=== PATIENT | male | born 1935 | race Caucasian/White ===

== ENCOUNTER 2018-06-17 15:49 | Inpatient (IN) | payer MEDICARE, OTHER ==
--- OUTSIDE RECORDS SUMMARY | 2018-06-17 16:48 | XMS REPORT | Continuity of Care Document ---
:1935 External Reference #:[id number] Author Name MilagromartFlores Care Team Providers Name Role Phone Valentina Pritchard MD Primary Care Physician Unavailable Payers Type Date Identification Numbers Payment Provider Subscriber Policy Number: [id number] Medicare Karl Portillo PayID: [id number] [address] [place] [address] Expires: 2018 Policy Number: [id number] Medicare Karl Portillo PayID: [id number] [address] [place] [address] Policy Number: [id number] [employer] Karl Portillo Group Number: [id number] [address] PayID: [id number] [place] [address] Advance Directives Description No Information Available Problems Date Description Provider Status Onset: 10/23/2016 Obstructive sleep apnea syndrome Emiliana Pollard MD Active Family History Date Family Member(s) Problem(s) Comments General PGM and PGGM Macular Degeneration Father due to Melanoma () Onset: (age 90 Father [place] Years) Father Periodic intestinal blockages, intestinal polyps; Parkinson's Mother Anxiety, headaches, Dementia at age intestinal polyps, macular 89 from heart failure degeneration Mother due to [place] () : (age 97 Mother due to CHF Years) Social History Type Date Description Comments Sex Unknown Marital Status Lives With 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 ETOH Use Consumes 1 glass of wine per day Tobacco Use Start: 07/09/57 Patient is a former End: 07/09/63 smoker Recreational Drug Use Denies Drug Use Tobacco Use Start: Unknown Heavy tobacco smoker 1PPD (more than 10 cigarettes/day) Smoking Status Reviewed: 06/14/18 Heavy tobacco smoker 1PPD (more than 10 cigarettes/day) Exercise Type/Frequency Exercises regularly walks briskly everyday Allergies, Adverse Reactions, Alerts Description No Known Drug Allergies Medications Medication Date Status Form Strength Qnty SIG Indications Ordering Provider Metoprolol 06/10/ Active Tablets 25mg 60tab 1/2 by mouth I48.4 Thony Tartrate 2018 s each am Marisabel Vidales M.D. Eliquis 10/22/ Active Tablets 5mg 1 by mouth Unknown 2016 twice a day Latanoprost / Active Solution 0.005% 1 gtt both Unknown 0000 eyes qd Ciclopirox / Active Solution 8% apply to Unknown 0000 affected toenails and surrounding skin at bedtime Vitamin B-12 / Active Tablets 1000mcg 1 by mouth Unknown 0000 every day Caltrate With / Active Tablets 600mg 1 by mouth Unknown Vitamin D3 0000 every day Centrum Silver / Active Tablets 1 by mouth Unknown 0000 every day Preservision / Active Capsules Areds 2 1 po bid Unknown Areds 2 0000 Cialis / Active Tablets 20mg one tab 30 Unknown 0000 minutes prior to intercourse Pepcid / Active Tablets 20mg take 1 Unknown 0000 tablet by mouth nightly Tylenol Extra / Active Tablets 500mg 2 by mouth Unknown Strength 0000 as needed Esbriet / Active Tablets 801mg 1 po tid, Unknown 0000 with meals Aspir-81 06/12/ Hx Tablets DR 81mg 30tab 1 by mouth Thony 2015 - every day FBeulah 11/28/ Quentin Vidales M.D. Timolol / Hx Solution 0.5% 1 gtt both Unknown Maleate 0000 - eyes bid 2015 Ranitidine HCL / Hx Tablets 150mg take one Unknown 0000 - tablet by 03/19/ mouth twice 2016 a day Vitamin /00/ Hx Tablets 800Units 1 tablet po Unknown D3/Calcium 0000 - every day 2017 Occuvite /00/ Hx use twice Unknown 0000 - daily as 2015 Vitamin A 00/ Hx Capsules 28,640Unit daily Unknown 0000 - 2017 Vitamin C 00/00/ Hx Tablets 452mg 1 by mouth Unknown 0000 - every day 2017 Vitamin E / Hx Capsules 400Unit 1 capsule po Unknown 0000 - daily 2017 Zinc / Hx Tablets 69.6mg 1 tablet by Unknown 0000 - mouth daily 2017 Copper 00/ Hx Tablets 1.6mg 1 tablet my Unknown 0000 - mouth daily 2017 Immunizations Description No Information Available Vital Signs Date Vital Result Comment 06/14/2018 11:14am Height 70 inches 5'10" Weight 180.00 lb Heart Rate 68 /min BP Systolic Sitting 110 mmHg BP Diastolic Sitting 62 mmHg Respiratory Rate 14 /min O2 % BldC Oximetry 97 % BMI (Body Mass Index) 25.8 kg/m2 06/10/2018 10:25am Height 70 inches 5'10" Weight 174.50 lb w/shoes Heart Rate 122 /min BP Systolic Sitting 134 mmHg Lue reg cuff BP Diastolic Sitting 88 mmHg Lue reg cuff BMI (Body Mass Index) 25.0 kg/m2 Ejection Fraction 55-60% Stress Echo 06/28/16 10/29/2017 3:50pm Height 70 inches 5'10" Weight 195.00 lb w/shoes Heart Rate 64 /min BP Systolic Sitting 116 mmHg L/A Reg Cuff BP Diastolic Sitting 70 mmHg L/A Reg Cuff BMI (Body Mass Index) 28.0 kg/m2 Ejection Fraction 55-60% echo 06/22/2016 10/29/2017 3:50pm Height 70 inches 5'10" Weight 195.00 lb with shoes BMI (Body Mass Index) 28.0 kg/m2 Ejection Fraction 55-60% date 06/22/16 ECHO 06/13/2017 1:25pm Height 70 inches 5'10" Weight 186.00 lb Heart Rate 68 /min BP Systolic 118 mmHg BP Diastolic 68 mmHg Respiratory Rate 16 /min O2 % BldC Oximetry 97 % BMI (Body Mass Index) 26.7 kg/m2 03/20/2017 3:48pm Height 70 inches 5'10" Weight 181.00 lb with shoes Heart Rate 64 /min BP Systolic Sitting 128 mmHg LA reg cuff BP Diastolic Sitting 82 mmHg LA reg cuff BMI (Body Mass Index) 26.0 kg/m2 Ejection Fraction 55%-60% echo 06/22/16 11/29/2016 1:56pm Height 70 inches 5'10" Weight 182.00 lb Heart Rate 58 /min BP Systolic Sitting 128 mmHg BP Diastolic Sitting 64 mmHg Respiratory Rate 16 /min O2 % BldC Oximetry 97 % BMI (Body Mass Index) 26.1 kg/m2 10/23/2016 10:58am Height 70 inches 5'10" Weight 182.00 lb Heart Rate 61 /min BP Systolic Sitting 140 mmHg BP Diastolic Sitting 82 mmHg Respiratory Rate 16 /min O2 % BldC Oximetry 97 % BMI (Body Mass Index) 26.1 kg/m2 Neck Circumference in inches 15.5 08/25/2016 8:44am Height 70 inches 5'10" per pt Weight 186.00 lb w/boots Heart Rate 66 /min BP Systolic Sitting 142 mmHg LA reg cuff BP Diastolic Sitting 80 mmHg LA reg cuff BP Systolic Standing 138 mmHg la sitting repeat BP Diastolic Standing 78 mmHg la sitting repeat BMI (Body Mass Index) 26.7 kg/m2 Ejection Fraction 55-60% Stress Test 06/28/16 06/13/2016 2:22pm Height 70 inches 5'10" per pt Weight 184.00 lb Heart Rate 60 /min BP Systolic Sitting 156 mmHg LA reg cuff BP Diastolic Sitting 80 mmHg LA reg cuff BMI (Body Mass Index) 26.4 kg/m2 Results Test Date Facility Test Result H/L Range Note Order [facility] Echocardiogram <pending> [address] [place] [address] [phone] [facility] B-Type Natriuretic 272 pg/ mL High <=100 finding [address] [place] [address] [phone] [facility] Sodium 134 mmol/L Low 135 -145 Panel [address] [place] [address] [phone] Potassium 4.4 mmol/L N 3.5-5.0 Chloride 103 mmol/L N 101-111 Co2 Carbon Dioxide 25 mmol/L N 22-32 Anion Gap 6 mmol/L N 2-11 Glucose 94 mg/dL N 70-100 Blood Urea Nitrogen 11 mg/dL N 6-24 Creatinine 0.90 mg/dL N 0.67-1.17 BUN/Creatinine Ratio 12.2 N 8-20 Calcium 9.7 mg/dL N 8.6-10.3 Egfr Non- 81.0 >60 Egfr 98.0 >60 1 Laboratory test 06/11/2018 [facility] Magnesium 2.1 mg/dL N 1.9-2.[address] [place] [address] [phone] 1 Because ethnic data is not always readily available, this report includes an eGFR for both -Americans and non- Americans. The National Kidney Disease Education Program (NKDEP) does not endorse the use of the MDRD equation for patients that are not between the ages of 18 and 70, are , have extremes of body size, muscle mass, or nutritional status, or are non- or non-. According to the National Kidney Foundation, irrespective of diagnosis, the stage of the disease is based on the level of kidney function: Stage Description GFR(mL/min/1.73 m(2)) 1 Kidney damage with normal or decreased GFR 90 2 Kidney damage with mild decrease in GFR 60-89 3 Moderate decrease in GFR 30-59 4 Severe decrease in GFR 15-29 5 Kidney failure <15 (or dialysis) Procedures Date Code Description Status 06/13/2018 76466 ECHO Transthoracic, Real-Time 2D With Doppler And Completed Color Flow 06/10/2018 65801 EKG Tracing & Interpretation Completed 10/29/2017 19654 EKG Tracing & Interpretation Completed 03/30/2017 90917 Holter Monitor Review (24 hr) review & interp only Completed 03/29/2017 90792 ECG Monitor/Recording W/Visual Superimposition Completed Scanning 03/20/2017 76633 EKG Tracing & Interpretation Completed 11/14/2016 23238 Polysomnography Sleep Staging 4+ Parameters Completed 08/25/2016 81477 EKG Tracing & Interpretation Completed 08/13/2016 82713 Holter Monitor Review (24 hr) review & interp only Completed 08/09/2016 40488 ECG Monitor/Recording W/Visual Superimposition Completed Scanning 06/28/2016 04135 ECHO Stress Test Incl Perf Contiuous ekg Monitoring Completed W/Phys Superv 06/28/2016 32957 ECHO Stress Test Incl Perf Contiuous ekg Monitoring Completed W/Phys Superv 06/22/2016 97109 ECHO Transthoracic, Real-Time 2D With Doppler And Completed Color Flow 06/22/2016 978022585 Diabetic Retinal Eye Exam Completed 06/21/2016 83101 Holter Monitor Review (24 hr)dr hill & tato only Completed 06/19/2016 18059 ECG Monitor/Recording W/Visual Superimposition Completed Scanning 06/13/2016 08168 EKG Tracing & Interpretation Completed Encounters Type Date Location Provider Dx Diagnosis Office Visit 06/14/2018 [facility] Reina Dietrich, G47.33 Obstructive sleep 11:15a [facility], ACO COORDINATOR- apnea (adult) [facility] (pediatric) R09.02 Hypoxemia Office Visit 10/29/2017 3:40p [facility] Thony Petit G47.33 Obstructive sleep Of Leroy Vidales M.D. 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) Office Visit 03/20/2017 3:40p [facility] Thony Petit G47.33 Obstructive sleep Elaine Vidales apnea (adult) (pediatric) R09.02 Hypoxemia I48.0 Paroxysmal atrial fibrillation I49.5 Sick sinus syndrome R94.31 Abnormal electrocardiogram [ECG] [EKG] Office Visit 11/29/2016 [facility] Reina G47.33 Obstructive sleep 2:00p [facility] SAMRA Dietrich RN, apnea (adult) [facility] (pediatric) R09.02 Hypoxemia Office Visit 10/23/2016 11:00a Pulmonology Florence Hopson G47.33 Obstructive sleep [facility] Of MD Atul apnea (adult) [facility] (pediatric) I49.9 Cardiac arrhythmia, unspecified Office Visit 08/25/2016 9:00a [facility] Thony Petit I48.0 Paroxysmal atrial Elaine Vidales fibrillation R00.1 Bradycardia, unspecified G47.33 Obstructive sleep apnea (adult) (pediatric) Office Visit 06/13/2016 2:00p [facility] Thony Petit I48.0 Paroxysmal atrial Elaine Vidales fibrillation I10 Essential (primary) hypertension M79.602 Pain in left arm G47.9 Sleep disorder, unspecified R00.1 Bradycardia, unspecified Office Visit 05/23/2016 [facility] Kina I48.91 Unspecified 2:43p Assoc,florin Bustillos NP atrial Hospitalists fibrillation Plan of Treatment Future Appointment(s):06/16/2019 11:15 am - Reina Dietrich DNP, RN, ACO COORDINATOR-BC at [facility]06/21/2018 3:00 pm - Yen Kaba NP at [facility]06/14/2018 - Reina Dietrich DNP, RN, ACO COORDINATOR-BCG47.33 Obstructive sleep apnea (adult) (pediatric)Follow up:[address] PollardRecommendations:Sleep apnea to continue the oral appliance/mandibular device with positional therapy Risks of untreated sleep apnea including cardiovascular events: rhythm irregularities, heart attack, stroke; gastroesophageal reflux disease (GERD); diabetes; anxiety, depression; high blood pressure; accidents (machinery and automobile) Recommendation for PAP other treatment modalities NON-PAP including oral appliance/mandibular advancement device, positional strategies , and surgery discussed. Dr Zeke DDS in [place] takes Medicare for the appliance, you may want to consult with him to see if adjustments needed to improve overall treatment.R09.02 HypoxemiaNew Orders:Pulse Oximetry Overnight, Ordered: 06/14/18Recommendations: Due to recent problems with Ernst Dang. Pulse oximery to assure oral appliance is helping. You may need new device.
--- OUTSIDE RECORDS SUMMARY | 2018-06-17 16:48 | XMS REPORT | Continuity of Care Document ---
:1935 External Reference #:[id number] Author Name Teresa Miranda Care Team Providers Name Role Phone Valentina Pritchard MD Primary Care Physician Unavailable Payers Type Date Identification Numbers Payment Provider Subscriber Policy Number: [id number] Medicare Karl Portillo PayID: [id number] [address] [place] [address] Expires: 2018 Policy Number: [id number] Medicare Karl Portillo PayID: [id number] [address] [place] [address] Policy Number: [id number] [employer] Karl Portillo Group Number: [id number] [address] PayID: [id number] [place] [address] Advance Directives Description No Information Available Problems Date Description Provider Status Onset: 10/23/2016 Obstructive sleep apnea syndrome Emiliana Pollard MD Active Family History Date Family Member(s) Problem(s) Comments General PGM and PGGM Macular Degeneration Father due to Melanoma () Onset: (age 90 Father [place] Years) Father Periodic intestinal blockages, intestinal polyps; Parkinson's Mother Anxiety, headaches, Dementia at age intestinal polyps, macular 89 from heart failure degeneration Mother due to [place] () : (age 97 Mother due to [...] (more than 10 cigarettes/day) Smoking Status Reviewed: 06/10/18 Heavy tobacco smoker 1PPD (more than 10 cigarettes/day) Exercise Type/Frequency Exercises regularly walks briskly everyday Allergies, Adverse Reactions, Alerts Description No Known Drug Allergies Medications Medication Date Status Form Strength Qnty SIG Indications Ordering Provider Metoprolol 06/10/ Active Tablets 25mg 60tab 1/2 by mouth I48.4 Thony Tartrate 2018 s each am Marisabel Vidales M.D. Eliquis 10/22/ Active Tablets 5mg 1 by mouth Unknown 2017 twice a day Latanoprost / Active Solution [...] 30tab 1 by mouth Thony 2015 - s every day FBeulah 11/28/ Quentin Vidales M.D. [...] 0000 - daily as 2015 Vitamin A /00/ Hx Capsules 28,640Unit daily Unknown 0000 - 2017 Vitamin C / Hx Tablets 452mg 1 by mouth Unknown 0000 - every day 2017 Vitamin E / Hx Capsules 400Unit 1 capsule po Unknown 0000 - daily 2017 Zinc / Hx Tablets 69.6mg 1 tablet by Unknown 0000 - mouth daily 2017 Copper / Hx Tablets 1.6mg 1 tablet my Unknown 0000 - mouth daily 2017 Immunizations Description No Information Available Vital Signs Date Vital Result Comment 06/10/2018 10:25am Height 70 inches 5'10" Weight [...] BMI (Body Mass Index) 26.4 kg/m2 Results Description No Information Available Procedures Date Code Description Status 06/10/2018 14313 EKG Tracing & Interpretation Completed 10/29/2017 17412 EKG Tracing & Interpretation Completed 03/30/2017 55740 Holter Monitor Review (24 hr) review & interp only Completed 03/29/2017 29623 ECG Monitor/Recording W/Visual Superimposition Completed Scanning 03/20/2017 63089 EKG Tracing & Interpretation Completed 11/14/2016 69861 Polysomnography Sleep Staging 4+ Parameters Completed 08/25/2016 11845 EKG Tracing & Interpretation Completed 08/13/2016 85444 Holter Monitor Review (24 hr) review & interp only Completed 08/09/2016 05065 ECG Monitor/Recording W/Visual Superimposition Completed Scanning 06/28/2016 98637 ECHO Stress Test Incl Perf Contiuous ekg Monitoring Completed W/Phys Superv 06/28/2016 08765 ECHO Stress Test Incl Perf Contiuous ekg Monitoring Completed W/Phys Superv 06/22/2016 29661 ECHO Transthoracic, Real-Time 2D With Doppler And Completed Color Flow 06/22/2016 314230481 Diabetic Retinal Eye Exam Completed 06/21/2016 87062 Holter Monitor Review (24 hr) review & interp only Completed 06/19/2016 36010 ECG Monitor/Recording W/Visual Superimposition Completed Scanning 06/13/2016 83124 EKG Tracing & Interpretation Completed Encounters Type Date Location Provider Dx Diagnosis Office Visit 10/29/2017 [facility] Thony Petit G47.33 Obstructive sleep 3:40p Of Leroy Vidales M.D. 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) Office Visit 03/20/2017 3:40p [facility] Thony Petit G47.33 Obstructive sleep Elaine Vidales apnea (adult) (pediatric) R09.02 Hypoxemia I48.0 Paroxysmal atrial fibrillation I49.5 Sick sinus syndrome R94.31 Abnormal electrocardiogram [ECG] [EKG] Office Visit 11/29/2016 [facility] And Reina G47.33 Obstructive sleep 2:00p [facility] SAMRA Dietrich RN, apnea (adult) [facility] (pediatric) R09.02 Hypoxemia Office Visit 10/23/2016 11:00a Pulmonology And Emiliana G47.33 Obstructive sleep [facility] Of MD Atul apnea (adult) [facility] (pediatric) I49.9 Cardiac arrhythmia, unspecified Office Visit 08/25/2016 9:00a [facility] Thony Petit I48.0 Paroxysmal atrial Mauser, M.D. fibrillation R00.1 Bradycardia, unspecified G47.33 Obstructive sleep apnea (adult) (pediatric) Office Visit 06/13/2016 2:00p [facility] Thony Petit I48.0 Paroxysmal atrial Mauser, M.D. fibrillation I10 Essential (primary) hypertension M79.602 Pain in left arm G47.9 Sleep disorder, unspecified R00.1 Bradycardia, unspecified Office Visit 05/23/2016 [facility] I48.91 Unspecified 2:43p Assmihaela,florin Bustillos NP atrial Hospitalists fibrillation Plan of Treatment Future Appointment(s):06/21/2018 3:00 pm - Yen Kaba NP at [facility]06/13/2018 2:30 pm - Traveling ECHO 1 at [facility]06/14/2018 11:15 am - Reina Dietrich DNP, RN, OPERATING ROOM SCHEDULER-BC at [facility]06/10/2018 - Thony Vidales M.D.G47.33 Obstructive sleep apnea (adult) (pediatric)I48.0 Paroxysmal atrial [id number] Abnormal electrocardiogram [ECG] [EKG]R06.00 Dyspnea, unspecifiedNew Orders: Echocardiogram, Scheduled: 06/13/18J84.10 Pulmonary fibrosis, [id number] Atypical atrial flutterNew Medication:Metoprolol Tartrate 25 mg - 1/2 by mouth each amNew Orders:Cardioversion, Scheduled: 06/11/18ollow up:ov grain operations manager 1-2 weeksRecommendations:consider obtain Kardia to monitor heart rhythm
--- OUTSIDE RECORDS SUMMARY | 2018-06-17 16:48 | XMS REPORT | Continuity of Care Document ---
:1935 External Reference #:[id number] Author Name Tati Dooley Care Team Providers Name Role Phone Valentina Pritchard MD Primary Care Physician Unavailable Payers Type Date Identification Numbers Payment Provider Subscriber Policy Number: [id number] Medicare Karl Portillo PayID: [id number] [address] [place] [address] Expires: 2018 Policy Number: [id number] Medicare Karl Portillo PayID: [id number] [address] [place] [address] Policy Number: [id number] [employer] Karl Portillo Group Number: [id number] [address] PayID: [id number] [place] [address] Advance Directives Description No Information Available Problems Date Description Provider Status Onset: 10/23/2016 Obstructive sleep apnea syndrome Emiliana Pollard MD Active Family History Date Family Member(s) Problem(s) Comments General PGM and PGGM Macular Degeneration Father due to Melanoma () Onset: (age 90 Father [place] Years) Father Periodic intestinal blockages, intestinal polyps; Parkinson's Mother Anxiety, headaches, Dementia at age intestinal polyps, macular 89 from heart failure degeneration Mother due to [place] () : (age 97 Mother due to [...] Available Procedures Date Code Description Status 06/10/2018 60782 EKG Tracing & Interpretation Completed 10/29/2017 76643 EKG Tracing & Interpretation Completed 03/30/2017 82147 Holter Monitor Review (24 hr) review & interp only Completed 03/29/2017 96914 ECG Monitor/Recording W/Visual Superimposition Completed Scanning 03/20/2017 26363 EKG Tracing & Interpretation Completed 11/14/2016 00035 Polysomnography Sleep Staging 4+ Parameters Completed 08/25/2016 49741 EKG Tracing & Interpretation Completed 08/13/2016 36542 Holter Monitor Review (24 hr) review & interp only Completed 08/09/2016 92662 ECG Monitor/Recording W/Visual Superimposition Completed Scanning 06/28/2016 62436 ECHO Stress Test Incl Perf Contiuous ekg Monitoring Completed W/Phys Superv 06/28/2016 24396 ECHO Stress Test Incl Perf Contiuous ekg Monitoring Completed W/Phys Superv 06/22/2016 07463 ECHO Transthoracic, Real-Time 2D With Doppler And Completed Color Flow 06/22/2016 374437567 Diabetic Retinal Eye Exam Completed 06/21/2016 40847 Holter Monitor Review (24 hr) review & ofeliap only Completed 06/19/2016 97917 ECG Monitor/Recording W/Visual Superimposition Completed Scanning 06/13/2016 57082 EKG Tracing & Interpretation Completed Encounters Type Date Location Provider Dx Diagnosis Office Visit 10/29/2017 [facility] Thony Petit G47.33 Obstructive sleep 3:40p Of Leroy Vidales M.D. 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) Office Visit 03/20/2017 3:40p [facility] Thony Petit G47.33 Obstructive sleep Elaine Vidales apnea (adult) (pediatric) R09.02 Hypoxemia I48.0 Paroxysmal atrial fibrillation I49.5 Sick sinus syndrome R94.31 Abnormal electrocardiogram [ECG] [EKG] Office Visit 11/29/2016 [facility] G47.33 Obstructive sleep 2:00p [facility]rich RN, [facility] R09.02 Hypoxemia Office Visit 10/23/2016 11:00a [facility] Emiliana G47.33 Obstructive sleep [facility] MD Atul apnea (adult) [facility] (pediatric) I49.9 Cardiac arrhythmia, unspecified Office Visit 08/25/2016 9:00a [facility] Thony Petit I48.0 Paroxysmal atrial Mauser, M.D. fibrillation R00.1 Bradycardia, unspecified G47.33 Obstructive sleep apnea (adult) (pediatric) Office Visit 06/13/2016 2:00p [facility] Thony Petit I48.0 Paroxysmal atrial Mauser, M.D. fibrillation I10 Essential (primary) hypertension M79.602 Pain in left arm G47.9 Sleep disorder, unspecified R00.1 Bradycardia, unspecified Office Visit 05/23/2016 [facility] I48.91 Unspecified 2:43p Assmihaela,florin Bustillos NP atrial Hospitalists fibrillation Plan of Treatment Future Appointment(s):06/21/2018 3:00 pm - Yen Kaba NP at [facility]/13/2018 2:30 pm - Traveling ECHO 1 at [facility]06/11/2018 11:00 am - Roger Gonsalves M.D. at [facility]06/14 11:15 am - Reina Dietrich DNP, RN, LEATHER PRODUCTION MACHINE OPERATOR-BC at [facility]06/10/2018 - Thony Vidales M.D.G47.33 Obstructive sleep apnea (adult) (pediatric)I48.0 Paroxysmal atrial [id number] Abnormal electrocardiogram [ECG] [EKG]R06.00 Dyspnea, unspecifiedNew Orders: Echocardiogram, Scheduled: 06/13/18J84.10 Pulmonary fibrosis, uvyaishioqtM40.4 Atypical atrial flutterNew Medication:Metoprolol Tartrate 25 mg - 1/2 by mouth each amNew Orders:Cardioversion, Scheduled: 06/11/18ollow up:ov opening machine cleaner 1-2 weeksRecommendations:consider obtain Kardia to monitor heart rhythm
--- NOTE | 2018-06-17 16:55 | UC ---
Palpitation/Dysrhythmia HP - History of Current Complaint Chief Complaint: EDDysrhythmPalp Stated Complaint: RAPID HEART RATE Time Seen by Provider: 06/17/18 16:35 Pain Intensity: 0 - Allergy/Home Medications Allergies/Adverse Reactions: Allergies Allergy/AdvReac Type Severity Reaction Status Date / Time No Known Allergies Allergy Verified 06/10/18 15:44 PMH/Surg Hx/FS Hx/Imm Hx - Surgical History Surgical History: Yes Surgery Procedure, Year, and Place: TONSILLECTOMY AND ADENOIDECTOMY AGE 7,. 1995 RADICAL PROSTATECTOMY, [facility]. NUMEROUS SQUAMOUS AND BASAL CELL CARCINOMA SKIN EXCISION, OFFICE. 2009 BILATERAL CATARACT EXTRACTION WITH IOL IMPLANTS, [place] - Social History Alcohol Use: Occasionally Alcohol Amount: 1-2 glasses of wine/day Substance Use Type: None Smoking Status (MU): Former Smoker Type: Cigarettes Amount Used/How Often: 1 PPD FOR ABOUT 7-8 YEARS Length of Time of Smoking/Using Tobacco: 7-8 YEARS Have You Smoked in the Last Year: No When Did the Patient Quit Smoking/Using Tobacco: 1964 Physical Exam Vital Signs: Initial Vital Signs Temp 99.4 F 06/17/18 15:57 Pulse 66 06/17/18 15:57 Resp 16 06/17/18 15:57 BP 144/96 06/17/18 15:57 Pulse Ox 97 06/17/18 15:57 Discharge - Discharge Plan Referrals: Valentina Pritchard MD [Primary Care Provider] - - Attestation Statements Document Initiated by Scribe: Yes Documenting Scribe: Angely Ramsey Provider For Whom Scribe is Documenting (Include Credential): Dr.Jerry Selma MD Scribe Attestation: Angely Velazquez , scribed for Dr.Jerry Selma MD on 06/17/18 at 1655.
[2018-06-17 17:08] LABS: ABS Basophils 0.1 10^3/ul (0-0.2); ABS Eosinophils 0.2 10^3/ul (0-0.6); ABS Monocytes 0.8 10^3/ul (0-0.8); ABS Neutrophils 4.1 10^3/ul (1.5-7.7); ABS Nucleated RBC 0 10^3/ul; Eosinophil % 3.8 %; Hematocrit 42 % (42-52); Hemoglobin 14.3 g/dl (14.0-18.0); Lymphocyte % 15.6 %; Mean Corpuscular HGB Conc 34 g/dl (31-36); Mean Corpuscular Hemoglobin 35 pg (27-31); Mean Corpuscular Volume 101 fL (80-94); Mean Platelet Volume 7.4 fL (7.4-10.4); Nucleated Red Blood Cells % 0.1; Platelet Count 237 10^3/ul (150-450); Red Blood Count 4.15 10^6/ul (4.00-5.40); Red Cell Distribution Width 13 % (10.5-15); White Blood Count 6.1 10^3/ul (3.5-10.8)
--- NOTE | 2018-06-17 17:09 | ED ---
Palpitations / Dysrhythmia - HPI Summary HPI Summary: The pt is an 83 y/[facility] since yesterday. He had cardioversion performed by Dr. Vidales 6 days ago (06/11/2018) and started taking Metoprolol to some relief until yesterday. He got referred to the ED by Dr. Vidales. He notes neck, back pain and inner R upper arm(non radiating to the distal part) only at night but denies CP, and jaw pain. 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 Home Medications Medication Instructions Recorded Confirmed Type Latanoprost 0.005%* [Xalatan 1 drop BOTH EYES QPM 08/04/14 06/10/18 History 0.005%*] Tadalafil [Cialis] 20 mg PO SEE INSTRUCTIONS PRN 08/04/14 06/10/18 History Areds 2 1 tab PO BID 05/12/16 06/10/18 History Calcium Carbonate/Vitamin D3 1 chw PO DAILY 06/10/18 06/10/18 History [Caltrate 600 + D Soft Chew Tab] Cyanocobalamin (Vitamin B-12) 1,000 mcg PO DAILY 06/10/18 06/10/18 History [Vitamin B-12] Famotidine [Pepcid] 20 mg PO BID 06/10/18 06/10/18 History Pirfenidone [Esbriet] 801 mg PO TID AC 06/10/18 06/10/18 History Acetaminophen [Tylenol Extra 2 tab PO SEE INSTRUCTIONS PRN 06/11/18 06/11/18 History Strength] Apixaban* [Eliquis*] 5 mg PO BID 06/11/18 06/11/18 History Ciclopirox/Urea/Camph/Men/Euc 1 applic TOPICAL DAILY 06/11/18 06/11/18 History [Ciclopirox 8% Treatment Kit] Metoprolol Tartrate TAB* 12.5 mg PO DAILY 06/11/18 06/11/18 History [Lopressor TAB*] Multivit-Min/FA/Lycopen/Lutein 1 tab PO DAILY 06/11/18 06/11/18 History [Centrum Silver Men Tablet] - History of Current Complaint Chief Complaint: EDDysrhythmPalp Time Seen by Provider: 06/17/18 16:35 Hx Obtained From: Patient, Family/Medical Research Scientist - Onset/Duration: Sudden Onset, Lasting Days, Still Present Timing: Intermittent Episodes Lasting: Character: Pounding Associated Signs & Symptoms: Negative - CP, jaw pain - Allergy/Home Medications Allergies/Adverse Reactions: Allergies Allergy/AdvReac Type Severity Reaction Status Date / Time No Known Allergies Allergy Verified 06/17/18 17:11 Home Medications: Home Medications Acetaminophen [Acetaminophen Extra Strength] 500 mg PO BID PRN 06/17/18 [ History Confirmed 06/17/18] Cholecalciferol (Vitamin D3) [Vitamin D3] 800 unit PO DAILY 06/17/18 [History Confirmed 06/17/18] Ciclopirox [Penlac Nail Lacquer] 8 % TOPICAL DAILY 06/17/18 [History Confirmed 06/17/18] Copper Gluconate [Copper] 1 mg PO DAILY 06/17/18 [History Confirmed 06/17/18] Cyanocobalamin TAB* [Vitamin B12 TAB*] 1,000 mcg PO DAILY 06/17/18 [History Confirmed 06/17/18] Famotidine TAB 40 MG(NF) [Pepcid TAB 40 MG(NF)] 40 mg PO QPM 06/17/18 [History Confirmed 06/17/18] Magnesium 50 mg PO DAILY 06/17/18 [History Confirmed 06/17/18] Multivit-Mins/Iron/Folic/Lycop [Centrum Ultra Mens] 1 tab PO DAILY 06/17/18 [ History Confirmed 06/17/18] Vit C/E/Zn/Coppr/Lutein/Zeaxan [Preservision Areds 2 Softgel] 1 cap PO BID 06/17 [History Confirmed 06/17/18] Vitamin A/Vit C/Zinc/Propolis [Zinc 15 mg Lozenges] 7.5 mg PO DAILY 06/17/18 [ History Confirmed 06/17/18] PMH/Surg Hx/FS Hx/Imm Hx Previously Healthy: No Endocrine/Hematology History: Denies: Hx Diabetes Cardiovascular History: Denies: Hx Congenital Heart Disease, Hx Congestive Heart Failure, Hx Hypertension Respiratory History: Reports: Other Respiratory Problems/Disorders - HX OF INTERSTITAL LUNG SCARRING, 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 History: Reports: Other Problems/Disorders - RADICAL PROSTECTOMY Denies: Hx Renal Disease Musculoskeletal History: Reports: Hx Arthritis, Hx Tendonitis - HX OF LEFT SHOULDER Sensory History: Reports: Hx Cataracts - HX OF, Hx Contacts or Glasses - READING GLASSES, Hx Glaucoma - BILATERAL Denies: Hx Hearing Aid Opthamlomology History: Reports: Hx Cataracts - HX OF, Hx Contacts or Glasses - READING GLASSES, Hx Glaucoma - BILATERAL Neurological History: Reports: Hx Seizures - AGE 16, NONE SINCE Denies: Hx CVA - Cancer History Cancer Type, 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 1995 RADICAL PROSTATECTOMY, [facility] NUMEROUS SQUAMOUS AND BASAL CELL CARCINOMA SKIN EXCISION, OFFICE. 2009 BILATERAL CATARACT EXTRACTION WITH IOL IMPLANTS, [place] Hx Anesthesia Reactions: No - SPINAL OR LOCAL Infectious Disease History: No Infectious Disease History: Reports: Hx Hepatitis - CONTROL WITH MED Denies: Traveled Outside the in Last 30 Days - Family History Family History: Father lived to 90 , mother to 97 - Social History Occupation: Retired Lives: With Family Alcohol Use: Occasionally Alcohol Amount: 1-2 glasses of wine/day Substance Use Type: Reports: None Smoking Status (MU): Former Smoker Type: Cigarettes Amount Used/How Often: 1 PPD FOR ABOUT 7-8 YEARS Length of Time of Smoking/Using Tobacco: 7-8 YEARS Have You Smoked in the Last Year: No Review of Systems Positive: Palpitations. Negative: Chest Pain Negative: Shortness Of Breath Musculoskeletal: Negative - Jaw pain , Other - Positive: Back pain, neck pain and inner R upper arm pain (non-radiating to the distal part) All Other Systems Reviewed And Are Negative: Yes Physical Exam - Summary Physical Exam Summary: Constitutional: Well-developed, Well-nourished, Alert. (-) Distressed Skin: Warm, Dry HENT: Normocephalic; Atraumatic Eyes: Conjunctiva normal Neck: Musculoskeletal ROM normal neck. (-) JVD, (-) Stridor, (-) Tracheal deviation Cardio: Rhythm regular, rate normal, Heart sounds normal; Intact distal pulses; The pedal pulses are 2+ and symmetric. Radial pulses are 2+ and symmetric. (-) Murmur Pulmonary/Chest wall: (+) Bibasilar crackles consistent with his chronic interstitial scarring, Effort normal. (-) Respiratory distress, (-) Wheezes, (- ) Rales Abd: Soft, (-) epigastric tenderness, (-) Distension, (-) Guarding, (-) Rebound Musculoskeletal: (-) Edema Lymph: (-) Cervical adenopathy Neuro: Alert, Oriented x3 Psych: Mood and affect Normal Triage Information Reviewed: Yes Vital Signs On Initial Exam: Initial Vitals Temp Pulse Resp BP Pulse Ox 99.4 F 66 16 144/96 97 06/17/18 15:57 06/17/18 15:57 06/17/18 15:57 06/17/18 15:57 06/17/18 15:57 Vital Signs Reviewed: Yes Diagnostics - Vital Signs Vital Signs Temp Pulse Resp BP Pulse Ox 06/17/18 16:54 96 06/17/18 16:51 102 27 150/105 95 06/17/18 16:46 99 24 95 06/17/18 15:57 99.4 F 66 16 144/96 97 - Laboratory Lab Results: Lab Results 06/17/18 Range/Units 16:52 WBC 6.1 (3.5-10.8) 10^3/ul RBC 4.15 (4.00-5.40) 10^6/ul Hgb 14.3 (14.0-18.0) g/dl Hct 42 (42-52) % MCV 101 H (80-94) fL MCH 35 H (27-31) pg MCHC 34 (31-36) g/dl RDW 13 (10.5-15) % Plt Count 237 (150-450) 10^3/ul MPV 7.4 (7.4-10.4) fL Neut % (Auto) 66.3 % Lymph % (Auto) 15.6 % [place] % (Auto) 13.3 % Eos % (Auto) 3.8 % Baso % (Auto) 1.0 % Absolute Neuts (auto) 4.1 (1.5-7.7) 10^3/ul Absolute Lymphs (auto) 1.0 (1.0-4.8) 10^3/ul Absolute Monos (auto) 0.8 (0-0.8) 10^3/ul Absolute Eos (auto) 0.2 (0-0.6) 10^3/ul Absolute Basos (auto) 0.1 (0-0.2) 10^3/ul Absolute Nucleated RBC 0 10^3/ul Nucleated RBC % 0.1 Result Diagrams: 06/18/18 05:56 06/19/18 10:37 Lab Statement: Any lab studies that have been ordered have been reviewed, and results considered in the medical decision making process. - Radiology CXR Radiology Interpretation Completed By: Radiologist Summary of Radiographic Findings: IMPRESSION: DIFFUSE FIBROTIC LUNG DISEASE. The ED physician reviewed this radiology report. - EKG 17:02 Cardiac Rate: Other Rate - 97 bpm EKG Rhythm: Atrial Fibrillation Summary of EKG Findings: No STEMI Course/Dx - Course Course Of Treatment: An 83 year-old M presents to the ED with a CC of intermittent tachycardia since yesterday. He got cardioverted by Dr. Vidales 6 days ago (06/11/2018) and got started on Metoprolol to some relief until yesterday. He notes neck, back pain and inner R upper arm only at night but denies CP, and jaw pain. A physical exam revealed bibasilar crackles consistent with his chronic interstitial scaring. A CXR reveals diffuse fibrotic lung disease and an EKG reveals Afib. I discussed the care of the pt with Dr. Arrieta who agreed to admit the pt. Patient will be admitted with a final Dx of SOB on exertion and rapid Afib. Pt is agreeable with this plan. Allergies noted. - Diagnoses Provider Diagnoses: SOB (shortness of breath) on exertion, Rapid atrial fibrillation - Physician Notifications Discussed Care Of Patient With: Hans Arrieta - Hospitalist Instructed by Provider To: Admit As Inpatient Discharge - Sign-Out/Discharge Documenting (check all that apply): Patient Departure - Admit - Discharge Plan Condition: Stable Disposition: ADMITTED TO [facility] - Billing Disposition and Condition Condition: STABLE Disposition: Admitted to [facility] - Attestation Statements Document Initiated by Scribe: Yes Documenting Scribe: Angely Ramsey Provider For Whom Khalida is Documenting (Include Credential): Dr. Haresh Hahn MD Scribe Attestation: Angely Velazquez, scribed for Dr. Haresh Hahn MD on 06/19/18 at 1113. Scribe Documentation Reviewed: Yes Provider Attestation: The documentation as recorded by the scribe, Angely Ramsey accurately reflects the service I personally performed and the decisions made by me, Dr. Haresh Hahn MD Status of Khalida Document: Viewed
[2018-06-17 17:22] LABS: Urine Appearance Clear; Urine Blood Negative (Negative); Urine Color Straw; Urine Ketones Negative (Negative); Urine Protein Negative (Negative); Urine Specific Gravity 1.004 (1.010-1.030); Urine Urobilinogen Negative (Negative)
[2018-06-17] MEDS ORDERED: Acetaminophen TAB* 325 MG PO PRN (18:26)
[2018-06-17] MEDS ORDERED: Metoprolol Tartrate IV* 1 MG/ML 5 ML VIAL IV PRN (18:33)
[2018-06-17] MEDS: Apixaban* 5 MG TAB PO SCH (21:24)
[2018-06-17] MEDS: Metoprolol Tartrate TAB* 25 MG PO SCH (21:24)
--- NOTE | 2018-06-17 21:50 | HP ---
CC: Dr. Valentina Pritchard; Dr. Vidales * HISTORY AND PHYSICAL: DATE OF ADMISSION: 06/17/18 PRIMARY CARE PROVIDER: Dr. Valentina Pritchard. RADIOLOGIC TECHNOLOGY INSTRUCTOR: Dr. Vidales. CHIEF COMPLAINT: Shortness of breath and tachycardia. SUBJECTIVE: This is a very pleasant 83-year-old gentleman comes into the emergency room for increased shortness of breath at the direction of his director child abuse therapy, Dr. Vidales. Apparently, he does have a history of atrial fibrillation, paroxysmal, for which he noticed it about 2 weeks ago when he was visiting with his pulmonology [facility] and he was describing that he has been having more and more dyspnea. His mononitrotoluene operator had referred him to the Cardiology and his pulmonary fibrosis has seemed to be stable, not progressing. He did come back home from [place]. He made an appointment with his director child abuse therapy and was found to be in atrial fibrillation with rapid ventricular rate. Therefore, the patient was sent to the emergency room, was cardioverted, and he was started on Lopressor 12.5 once a day and discharged. He was doing fairly well up until this weekend when he noted again his pulse getting faster in the 130s range. He called his director child abuse therapy this morning and in turn he referred him to the emergency room. The patient was seen in emergency room by Dr. Roger Gonsalves, who recommended admission for further diagnostic study and treatment. The patient was seen and evaluated by me in emergency room. He is resting comfortably. His pulse is 130, denies any chest pain. He does have some dyspnea on exertion and his pulse goes up into the 140, 150s with minimal exertion. PAST MEDICAL HISTORY: 1. History of central upper lobe basal carcinoma. 2. History of seizure as a child. 3. History of prostate cancer. 4. Obstructive sleep apnea. 5. Pulmonary fibrosis. 6. Generalized osteoarthritis. PAST SURGICAL HISTORY: Tonsillectomy, adenoidectomy, prostatectomy, and cataract. MEDICATIONS: 1. Tylenol 500 b.i.d. 2. Calcium with vitamin D daily. 3. Vitamin D 800 daily. 4. Penlac topical solution. 5. Copper 2 mg daily. 6. B12 1000 mcg daily. 7. Magnesium 30 mg daily. 8. Metoprolol 12.5 daily. 9. Multivitamin once a day. 10. Vitamin C 1 cap . 11. Vitamin A 7.5 daily. 12. Eliquis 5 mg b.i.d. 13. Famotidine 40 mg daily. 14. Xalatan 0.05%. 15. Esbriet 801 mg 3 times a day. ALLERGIES: No known drug allergies. FAMILY HISTORY: from melanoma, his father, that was present on his shoulder. No history of CVA. SOCIAL HISTORY: He is . Worked at [employer]. Does not smoke. REVIEW OF SYSTEMS: As per HPI. Remaining otherwise negative. PHYSICAL EXAMINATION GENERAL: He is sitting in bed, comfortable; however, he gets very dyspneic during exam and with ambulation. VITAL SIGNS: His temperature 99.4; pulse is 101 to 128, at times go up to 140; respiratory rate 18; satting 98%; and pressure 162/93. HEAD: Normocephalic, atraumatic. Most mucous membrane. Neck: Supple. No carotid bruits. No JVD. LUNGS: He has fine crackles bilaterally with underlying pulmonary fibrosis, unable to differentiate between CHF. CARDIOVASCULAR: Pulse is 140s, irregularly irregular, tachycardic. ABDOMEN: Positive bowel sounds, soft, nontender, nondistended. DIESEL DRAGLINE OPERATOR: There are no motor, focal sensory deficits. DIAGNOSTIC STUDIES/LAB DATA: His CBC, white count 6.1, hemoglobin 14.3, hematocrit is 42, platelets 237. Chemistry: Sodium 134, potassium 4.0, BUN 11 , creatinine 0.9, glucose 89, lactic acid 0.7, AST 20, ALT 29, troponin 0.01, BNP 760. Urinalysis unremarkable. In the emergency room, he had a chest x-ray which did show significant pulmonary fibrosis, no active pulmonary disease such as consolidation and infiltrate. EKG on 06/17/18 revealed atrial fibrillation and EKG with pulse of 97, otherwise unremarkable. IMPRESSION: This is an 83-year-old male comes in with atrial fibrillation, paroxysmal, with episodic RVR, back to normal rate. With minimal exertion, he goes to the 140s with dyspnea with underlying pulmonary fibrosis. Hence, the patient will be admitted to tele. We will try to optimize his therapy for rate control. I am going to put him on metoprolol 25 b.i.d. p.o. with Lopressor 5 mg q.4 hours p.r.n. for pulse greater than 120. Dr. Gonsalves was consulted. The patient will follow up in the morning. He is up-to-date with his echocardiogram. No further cardiac workup until further recommendation in a.m. For his pulmonary fibrosis, the patient to continue his Esbriet t.i.d. For his atrial fibrillation, we will place him on Eliquis 5 mg b.i.d. as per home. DVT prophylaxis: The patient is already on Eliquis. [id number]/[facility] #: [id number] [facility]
[2018-06-18 06:07] LABS: ABS Basophils 0.1 10^3/ul (0-0.2); ABS Eosinophils 0.4 10^3/ul (0-0.6); ABS Monocytes 0.8 10^3/ul (0-0.8); ABS Neutrophils 3.5 10^3/ul (1.5-7.7); ABS Nucleated RBC 0 10^3/ul; Eosinophil % 7.3 %; Hematocrit 42 % (42-52); Hemoglobin 14.1 g/dl (14.0-18.0); Lymphocyte % 17.7 %; Mean Corpuscular HGB Conc 34 g/dl (31-36); Mean Corpuscular Hemoglobin 34 pg (27-31); Mean Corpuscular Volume 101 fL (80-94); Mean Platelet Volume 7.2 fL (7.4-10.4); Nucleated Red Blood Cells % 0.1; Platelet Count 238 10^3/ul (150-450); Red Blood Count 4.13 10^6/ul (4.00-5.40); Red Cell Distribution Width 12 % (10.5-15); White Blood Count 5.8 10^3/ul (3.5-10.8)
[2018-06-18] MEDS: PIRFENIDONE 801 MG PO SCH ×3 (07:35→17:23)
[2018-06-18] MEDS: Apixaban* 5 MG TAB PO SCH ×2 (09:00→20:50)
[2018-06-18] MEDS: Metoprolol Tartrate TAB* 25 MG PO SCH (09:13)
[2018-06-18] MEDS: Metoprolol Succinate XL TAB* 25 MG PO SCH (10:06)
--- NOTE | 2018-06-18 11:31 | CONS ---
CONSULTATION REPORT: DATE OF CONSULT: 06/18/18. PROVIDER: Yen Kaba NP dictating for Dr. Roger Gonsalves, Cardiology. PRIMARY SEAT COVERER: Dr. Vidales. PRIMARY FUR TANNER: Dr. Lozano in [facility]. REASON FOR CONSULTATION: Symptomatic paroxysmal AFib/flutter. CHIEF COMPLAINT: Rapid heart rate. HISTORY OF PRESENT ILLNESS: This is a pleasant 83-year-old gentleman , who belongs to Dr. Vidales of our practice. The patient states that this past spring, he was informed by his bag printer in [facility] that his idiopathic pulmonary fibrosis had progressed. Subsequently, he was started on Espriet in January 2018. He states over the summer starting in January, he noticed that he was starting to develop dyspnea on exertion after swimming 4 laps in the pool, which he typically is able to tolerate 16. Apparently, he saw Dr. Lozano, Pulmonology, on 06/03/18, and was informed that his heart rate was rapid. Thus, he was evaluated in our practice last week and found to be in Aflutter with RVR. Subsequently, he had elective cardioversion on 06/11/[address] Roger Gonsalves. Post conversion, he was in normal sinus rhythm, rate 53, started on Lopressor 12.5 mg a day given tendency for relative bradycardia. The patient states that he purchased a cardio- monitor and had noted this past Sunday that his heart rate was still in the 130s. He states at that point in time, after having objective measurements of heart rate, he started to notice a feeling of jitteriness. The patient had an echocardiogram done on 06/13/18. At that point in time, LVEF was 40% to 45%, which is a new finding compared to last echocardiogram in 2016 where LVEF was noted to be 55% to 60%. He had global hypokinesis with a slight variation of the right ventricle. He was instructed to present to [facility] where he was found to be in AFib/flutter, heart rate 97. The patient was admitted to telemetry. We were asked to see him in consultation due to symptomatic paroxysmal AFib/Aflutter with RVR. At this current time, the patient is in Aflutter, heart rate is 130s with complaints of anxiousness. Apparently, when the patient was initially diagnosed in 2016 after excision of lip due to basal cell carcinoma, he had postoperative AFib with RVR. At that point in time, he states he sensed his heart racing with an irregularity; however, most recently, he was not symptomatic until he noted objective measurements of elevated heart rates. Now he states that he is more aware. The patient denies chest pain even with exertion, which apparently he takes nightly walks with his that is moderate in intensity. He denies dizziness, syncope, edema, shortness of breath, dyspnea on exertion, fever, chills, nausea, vomiting or orthopnea. Last echocardiogram, 06/13/18, at that time transthoracic ascending aorta was 3.7 cm, LVEF 40% to 45%, left atrium was severely dilated. PASP 39 mmHg, previously was 26 in 2016. There was global hypokinesis with a new right ventricle variant. Rnon-io-gapnopln pulmonary hypertension and mild aortic stenosis. PAST MEDICAL HISTORY: Includes: 1. Paroxysmal AFib/Aflutter. 2. Pulmonary fibrosis, idiopathic, on Esbriet. 3. Basal cell cancer. 4. Prostate cancer in remission for 20 plus years. 5. Obstructive sleep apnea compliant with dental appliance. 6. Mild aortic stenosis. 7. 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 8. Systolic heart failure. PAST SURGICAL HISTORY: Includes: 1. Tonsils and adenoid removal. 2. Prostatectomy. 3. Cataract repair. 4. Cardioversion, 06/11/18. HOME MEDICATIONS: Per admission med rec. ALLERGIES: No known drug allergies. FAMILY HISTORY: Denies premature cardiovascular disease in first-degree relatives. Denies sudden in first-degree relatives. SOCIAL HISTORY: The patient was a former tobacco user, quit in 1963. Consumes 1 glass of wine a day. Denies illegal drug use. He maintains a very active lifestyle. He goes on regular walks with his every day with moderate intensity. He is and lives at home with his . 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 REVIEW OF SYSTEMS: All systems have been reviewed and otherwise negative except as above mentioned in the HPI. PHYSICAL EXAM: Temperature 97.6, pulse 113, respirations 16, oxygenation 96% on room air, blood pressure 130/95. General: The patient is alert and oriented x3, cooperative with exam, appears well nourished, in no apparent distress. HEENT: Head is atraumatic, normocephalic. Oral mucosa is moist. Tongue is midline. Neck: Supple. Trachea midline. No JVD. No carotid bruits. Cardiac: Tachycardic. S1, S2. Irregular rate and rhythm. There is a grade 2/6 early systolic aortic valve murmur, otherwise no gallop or rub. Lungs : Auscultated posteriorly. No adventitious breath sounds auscultated. Respirations are unlabored. /GI: Abdomen is soft, nontender, nondistended. Positive bowel sounds throughout. Extremities: No pedal edema, no clubbing, no cyanosis. Peripheral Vascular: 2+ brachial and dorsalis pedis palpated bilaterally and symmetrically. Skin: Intact. No evidence of jaundice, rashes or ecchymosis appreciated. DIAGNOSTIC STUDIES/LAB DATA: Blood work reviewed. White count is 5.8, hemoglobin 14.1, hematocrit 42, platelets 238,000. Sodium 136, potassium 4.4, chloride 105, carbon dioxide 26, BUN 10, creatinine 0.90, glucose 87. Liver function tests were within normal limits. Troponin level was negative x3. EKG, 06/17/18, revealed AFib/flutter, rate 97 with nonspecific T wave changes appreciated. Chest x-ray, 06/17/18, diffuse fibrotic lung disease. ASSESSMENT AND PLAN: 1. History of paroxysmal atrial fibrillation/atrial flutter. CHADS-VASC3, on Eliquis 5 p.o. b.i.d. for approximately 2 years. Reports compliance. Denies missing dose in the past 6 weeks. The patient is symptomatic with a sensation of "jitteriness." Rates on telemetry are currently 130 to 135. When the patient is in normal sinus rhythm, he has a tendency for relative bradycardia. At this current time, we will discontinue Lopressor therapy, initiate Toprol 37.5 mg p.o. daily. Given history of idiopathic pulmonary fibrosis, we will avoid amiodarone therapy at this time. We will check exercise nuclear stress test, 06/19/18. Given newly reduced LVEF, our goal is to control heart rate. We will consider initiation of antiarrhythmic therapy post stress test and make further recommendations at that time. Left atrium was severely dilated on recent echocardiogram, thus may not benefit from repeat cardioversion. 2. Newly reduced systolic dysfunction; NYHA class 1. Appears compensated on physical examination. LVEF is 40% to 45%. This is possibly related to above, # 1; however, there was a new variation of right ventricular hypokinesis. Subsequently, we will risk stratify with exercise nuclear stress test tomorrow. We will discontinue Lopressor therapy and initiate Toprol therapy. We will follow. 3. History of idiopathic pulmonary fibrosis followed by Dr. Lozano in [facility], on Esbriet therapy. The patient states his is to bring medications from home, recommend continuing. He states that his diffusion capacity has historically been normal, although this past spring apparently he was informed that his pulmonary fibrosis has progressed; however, after initiation of Espriet therapy and followup on 06/03/18, he was informed that the pulmonary fibrosis has stabilized. 4. History of transthoracic ascending aortic dilatation 3.7 cm on most recent echocardiogram. Blood pressure is well controlled. We will initiate Toprol-XL therapy. 5. Disposition. Pending course. Dr. Roger Gonsalves has seen and examined the patient and agrees with the above assessment and plan. Thank you for this kind consultation. Any future questions or concerns, please do not hesitate to contact our practice. We will continue to follow the patient. YEN KABA NP [id number]/[facility] #: [id number] CHRISTOFER
--- NOTE | 2018-06-18 13:40 | PN ---
Subjective Date of Service: 06/18/18 Interval History: Patient seen today doing well. Still tacchcyardic. Afib with pulse rate of 130 's. Seen by cardiology they did change his lopressor 25 to toprol XL 37.5. he remains on IV lopressor 5 mg PRN pulse >120. Scheduled for stress test in am. Denies chest pain, dyspnea with exertions Past Medical History: Unchanged from Admission Objective Active Medications: Acetaminophen (Tylenol Tab*) 650 mg PO Q4H PRN PRN Reason: FEVER/PAIN Apixaban (Eliquis*) 5 mg PO BID [facility] Last Admin: 06/18/18 09:00 Dose: 5 mg Famotidine (Pepcid Tab*) 40 mg PO QPM [facility] Latanoprost (Xalatan 0.005%*) 1 drop BOTH EYES QPM [facility] Metoprolol Succinate (Toprol Xl Tab*) 37.5 mg PO DAILY [facility] Last Admin: 06/18/18 10:06 Dose: 37.5 mg Metoprolol Tartrate (Lopressor Iv*) 5 mg IV Q4H PRN PRN Reason: HEART RATE/PULSE GREATER THAN: Last Admin: 06/17/18 19:16 Dose: 5 mg Pto: (Pirfenidone [ (Esbriet] 801 Mg)) 801 mg PO TID AC [facility] Last Admin: 06/18/18 10:47 Dose: Not Given Vital Signs - 8 hr 06/18/18 06/18/18 06/18/18 06:00 07:16 08:00 Temperature 97.6 F Pulse Rate 90 113 Respiratory 16 16 Rate Blood Pressure 130/95 (mmHg) O2 Sat by Pulse 96 Oximetry Oxygen Devices in Use Now: None Appearance: awake, alert no distress Eyes: No Scleral Icterus, PERRLA, - - EOMI Ears/Nose/Mouth/Throat: NL Teeth, Lips, Gums, Mucous Membranes Moist Neck: NL Appearance and Movements; NL JVP, Trachea Midline Respiratory: Symmetrical Chest Expansion and Respiratory Effort, - - minimal bibasilar crackles Abdominal: NL Sounds; No Tenderness; No Distention Extremities: No Edema Skin: No Rash or Ulcers Neurological: Alert and Oriented x 3 Result Diagrams: 06/18/18 05:56 06/18/18 05:56 Additional Lab and Data: Lab Results 06/17/18 Range/Units 16:52 WBC 6.1 (3.5-10.8) 10^3/ul RBC 4.15 (4.00-5.40) 10^6/ul Hgb 14.3 (14.0-18.0) g/dl Hct 42 (42-52) % MCV 101 H (80-94) fL MCH 35 H (27-31) pg MCHC 34 (31-36) g/dl RDW 13 (10.5-15) % Plt Count 237 (150-450) 10^3/ul MPV 7.4 (7.4-10.4) fL Neut % (Auto) 66.3 % Lymph % (Auto) 15.6 % [place] % (Auto) 13.3 % Eos % (Auto) 3.8 % Baso % (Auto) 1.0 % Absolute Neuts (auto) 4.1 (1.5-7.7) 10^3/ul Absolute Lymphs (auto) 1.0 (1.0-4.8) 10^3/ul Absolute Monos (auto) 0.8 (0-0.8) 10^3/ul Absolute Eos (auto) 0.2 (0-0.6) 10^3/ul Absolute Basos (auto) 0.1 (0-0.2) 10^3/ul Absolute Nucleated RBC 0 10^3/ul Nucleated RBC % 0.1 Assess/Plan/Problems-Billing Assessment: 83 year old male admitted for Afib with RVR failed Cardioversion, dyspneic with known history of Pulmonary fibrosis - Patient Problems (1) A-fib Current Visit: Yes Status: Acute Code(s): I48.91 - UNSPECIFIED ATRIAL FIBRILLATION SNOMED Code(s): 04132578 Comment: - Cardiology input noted. they increased toprol XL to 37.5 mg daily (off the short acting lopressor) - For stress test in am - continue eliquis (2) Pulmonary fibrosis Current Visit: Yes Status: Acute Code(s): J84.10 - PULMONARY FIBROSIS, UNSPECIFIED SNOMED Code(s): 78570107 Comment: continue his home meds esbriet 801 tid (3) DVT prophylaxis Current Visit: Yes Status: Acute Code(s): QVC7938 - SNOMED Code(s): 684476956 Comment: on Eliquis
[2018-06-18] MEDS: Famotidine TAB* 20 MG PO SCH (17:23)
[2018-06-18] MEDS: Latanoprost 0.005%* 2.5 ml BTL BOTH EYES SCH (17:47)
[2018-06-18] MEDS ORDERED: Furosemide IV* 10 MG/ML VIAL (40 MG) IV SLOW PU ONE (20:39)
[2018-06-19] MEDS: Apixaban* 5 MG TAB PO SCH ×2 (07:49→21:28)
[2018-06-19 11:04] LABS: EGFR Non-African American 62.3 (>60)
[2018-06-19] MEDS ORDERED: Regadenoson* 0.4 MG/5 ML SYRINGE ONE (12:01)
[2018-06-19] MEDS: PIRFENIDONE 801 MG PO SCH ×3 (12:41→17:19)
[2018-06-19] MEDS: Metoprolol Succinate XL TAB* 25 MG PO SCH ×2 (12:43→13:11)
--- NOTE | 2018-06-19 17:45 | PN ---
Subjective Date of Service: 06/19/18 Interval History: HOSPITALIST PROGRESS NOTE Patient seen and examined at bedside. Care reviewed and d/w Gabrielle Bui RN. He is in good spirits today. Feels well, denies CP, palpitations, or change in his breathing. Family History: Unchanged from Admission Social History: Unchanged from Admission Past Medical History: Unchanged from Admission Objective Active Medications: Acetaminophen (Tylenol Tab*) 650 mg PO Q4H PRN PRN Reason: FEVER/PAIN Apixaban (Eliquis*) 5 mg PO BID [facility] Last Admin: 06/19/18 07:49 Dose: 5 mg Dofetilide (Tikosyn Cap*) 250 mcg PO BID [facility] Famotidine (Pepcid Tab*) 40 mg PO QPM [facility] Last Admin: 06/18/18 17:23 Dose: 40 mg Latanoprost (Xalatan 0.005%*) 1 drop BOTH EYES QPM [facility] Last Admin: 06/18/18 17:47 Dose: 1 drop Metoprolol Succinate (Toprol Xl Tab*) 37.5 mg PO DAILY [facility] Last Admin: 06/19/18 13:11 Dose: 37.5 mg Metoprolol Tartrate (Lopressor Iv*) 5 mg IV Q4H PRN PRN Reason: HEART RATE/PULSE GREATER THAN: Last Admin: 06/17/18 19:16 Dose: 5 mg Pto: (Pirfenidone [ (Esbriet] 801 Mg)) 801 mg PO TID AC [facility] Last Admin: 06/19/18 17:19 Dose: 801 mg Vital Signs - 8 hr 06/19/18 06/19/18 06/19/18 10:00 10:46 15:47 Temperature 97.9 F 97.9 F 97.9 F Pulse Rate 68 68 100 Respiratory 18 18 Rate Blood Pressure 116/82 116/82 102/76 (mmHg) O2 Sat by Pulse 98 98 96 Oximetry Oxygen Devices in Use Now: None Appearance: Elderly gentleman sitting up in bed in NAD. Eyes: No Scleral Icterus Ears/Nose/Mouth/Throat: Mucous Membranes Moist Neck: Trachea Midline Respiratory: Symmetrical Chest Expansion and Respiratory Effort, - - BS+ bilaterally with bibasilar crackles Cardiovascular: - - Normal S1 and S2, irregularly irregular Neurological: Alert and Oriented x 3, NL Muscle Strength and Tone Result Diagrams: 06/18/18 05:56 06/19/18 11:34 Assess/Plan/Problems-Billing Assessment: Mr Portillo is an 83 yo M with PMH of Pulmonary fibrosis, LAURA, prostate CA, who presented to ED with tachycardia, found to be in Afib with RVR. - Patient Problems (1) A-fib Comment: - S/p recent CV as outpatient - presented in Afib RVR, and now with depressed EF. - Cardiology input appreciated - plan to start Tikosyn for chemical cardioversion. - Continue Apixaban. - Electrolytes are WNL. (2) Pulmonary fibrosis Comment: - Continue Esbriet. (3) DVT prophylaxis Comment: - Apixaban. (4) Full code status Status and Disposition: Inpatient.
[2018-06-19] MEDS: Famotidine TAB* 20 MG PO SCH (17:56)
[2018-06-19] MEDS: Latanoprost 0.005%* 2.5 ml BTL BOTH EYES SCH (21:29)
[2018-06-19] MEDS: Dofetilide CAP* 250 MCG PO SCH (21:29)
[2018-06-20] MEDS: Apixaban* 5 MG TAB PO SCH ×2 (08:16→20:27)
[2018-06-20] MEDS: Metoprolol Succinate XL TAB* 25 MG PO SCH (08:16)
[2018-06-20] MEDS: Dofetilide CAP* 250 MCG PO SCH ×2 (08:16→20:24)
[2018-06-20] MEDS: Latanoprost 0.005%* 2.5 ml BTL BOTH EYES SCH ×2 (08:28→20:25)
[2018-06-20] MEDS ORDERED: Digoxin IV* 0.5 MG/2 ML AMP (0.25 MG/ML) IV SLOW PU ONE (08:33)
[2018-06-20] MEDS: PIRFENIDONE 801 MG PO SCH ×3 (09:12→22:53)
[2018-06-20] MEDS: NS 0.45% KCl 20 Meq 1000 ML* 1,000 ML IV SCH (10:41)
[2018-06-20] MEDS ORDERED: Naloxone* 0.4 MG/ML 1 ML VIAL ONE (14:32)
[2018-06-20] MEDS ORDERED: fentaNYL* 50 MCG/ML 2 ML VIAL (100 MCG VIAL) ONE (14:32)
[2018-06-20] MEDS ORDERED: Midazolam* 1 MG/ML 10 ML VIAL (10 MG) ONE (14:32)
[2018-06-20] MEDS ORDERED: Flumazenil* 0.1 MG/ML 5 ML MDV ONE (14:32)
[2018-06-20] MEDS: Famotidine TAB* 20 MG PO SCH (17:44)
[2018-06-21] MEDS: NS 0.45% KCl 20 Meq 1000 ML* 1,000 ML IV SCH (01:43)
[2018-06-21 07:09] LABS: EGFR Non-African American 84.2 (>60)
[2018-06-21] MEDS: Apixaban* 5 MG TAB PO SCH ×2 (08:11→20:13)
[2018-06-21] MEDS: Dofetilide CAP* 250 MCG PO SCH ×2 (08:12→20:13)
[2018-06-21] MEDS: PIRFENIDONE 801 MG PO SCH ×3 (08:13→17:16)
[2018-06-21] MEDS ORDERED: Metoprolol Succinate XL TAB* 25 MG PO SCH ×2 (09:00)
--- NOTE | 2018-06-21 09:43 | PN ---
<Yen Kaba - Last Filed: 06/21/18 09:58> Subjective Date of Service: 06/21/18 - symptomatic AFL Interval History: I had the pleasure seeing Mr. Portillo this morning. he reports no symptoms at this time. he had an un eventful night last night. Denies chest pain, palpitations, sensation of heart racing, edema, dizziness. He ambulated the halls yesterday prior to without difficulty however today he hasn't due to IV fluids being administered. Medications Active Medications: Acetaminophen (Tylenol Tab*) 650 mg PO Q4H PRN PRN Reason: FEVER/PAIN Apixaban (Eliquis*) 5 mg PO BID [facility] Last Admin: 06/21/18 08:11 Dose: 5 mg Dofetilide (Tikosyn Cap*) 250 mcg PO BID [facility] Last Admin: 06/21/18 08:12 Dose: 250 mcg Famotidine (Pepcid Tab*) 40 mg PO QPM [facility] Last Admin: 06/20/18 17:44 Dose: 40 mg Latanoprost (Xalatan 0.005%*) 1 drop BOTH EYES 2100 [facility] Last Admin: 06/20/18 20:25 Dose: 1 drop Metoprolol Succinate (Toprol Xl Tab*) 12.5 mg PO DAILY [facility] Metoprolol Tartrate (Lopressor Iv*) 5 mg IV Q4H PRN PRN Reason: HEART RATE/PULSE GREATER THAN: Last Admin: 06/17/18 19:16 Dose: 5 mg Pto: (Pirfenidone [ (Esbriet] 801 Mg)) 801 mg PO TID AC [facility] Last Admin: 06/21/18 08:13 Dose: 801 mg Objective Vital Signs: Temp Pulse Resp BP Pulse Ox 98.1 F 56 17 98/55 97 06/21/18 07:25 06/21/18 07:25 06/21/18 08:00 06/21/18 07:25 06/21/18 07:25 Oxygen Devices in Use Now: None Eyes: No Scleral Icterus Ears/Nose/Mouth/Throat: NL Teeth, Lips, Gums, Mucous Membranes Moist Neck: NL Appearance and Movements; NL JVP Respiratory: Symmetrical Chest Expansion and Respiratory Effort Cardiovascular: NL Sounds; No Murmurs; No JVD Abdominal: NL Sounds; No Tenderness; No Distention Extremities: No Edema Skin: No Rash or Ulcers Neurological: Alert and Oriented x 3 Lines/Tubes/Other Access: Clean, Dry and Intact Peripheral IV Laboratory Results: 06/18/18 05:56 06/21/18 06:25 Total Bilirubin 0.50 mg/dL (0.2-1.0) 06/17/18 16:52 AST 20 U/L (13-39) 06/17/18 16:52 ALT 29 U/L (7-52) 06/17/18 16:52 Alkaline Phosphatase 68 U/L (34-104) 06/17/18 16:52 B-Natriuretic Peptide 760 pg/mL (<=100) H 06/17/18 16:52 Total Protein 6.9 g/dL (6.4-8.9) 06/17/18 16:52 Albumin 4.0 g/dL (3.2-5.2) 06/17/18 16:52 Globulin 2.9 g/dL (2-4) 06/17/18 16:52 Albumin/Globulin Ratio 1.4 (1-3) 06/17/18 16:52 06/17/18 06/17/18 06/17/18 16:52 19:12 22:25 Troponin I 0.01 0.00 0.00 Laboratory Results - last 24 hr 06/21/18 06:25 Sodium 132 L Potassium 4.8 Chloride 103 Carbon Dioxide 25 Anion Gap 4 BUN 14 Creatinine 0.87 Est GFR ( Amer) 101.9 Est GFR (Non-Af Amer) 84.2 BUN/Creatinine Ratio 16.1 Glucose 87 Calcium 8.6 Magnesium 2.0 EKG Data: reviewed todays ECG he is NSR rate 57 QTc 447. Telemetry was reviewed currently 60-70's occasional PVCs. there was an episode this morning around 0648 of tachycardia that was concerning for AFL however artifact made it difficult to interpret. Assessment/Plan #1 Symptomatic Paroxysmal AFL; currently in NSR. I believe he had an episode around 0700 today on telemetry of AFL. He is s/p CV 06/20/2018. Will reduce Toprol XL to 12.5mg PO daily. Continue eliquis 5mg Po BID. QTc is stable on Tikosyn. Keep k+>4, Mag>2. BMP in AM with ECG. #2 Volume contraction; currently appears euvolemic. denies dizziness, lightheadedness. renal function stable. NA+ is 133 thus I asked nursing staff to add salt to patients food which he has not had. He is able to consume fluids by mouth so will D/C IV fluids at this time and repeat BMP in am. 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 He is currently in NSR and compensated. On Toprol XL 12.5/day #4 Disposition; pending course. Attending: Thony Vidales <Thony Vidales - Last Filed: 06/21/18 16:35> Subjective Interval History: Patient seen and examined and discussed with Sesar. Agree with plan as above and will hold toprol due to low bp's/bradycardia will consider discharge in the next 24-48 hours if he remains stable. Potential need for further medication adjustments, pacemaker implantation, and/ or other EP interventions were discussed. Written note included in the chart as well. Medications Active Medications: Acetaminophen (Tylenol Tab*) 650 mg PO Q4H PRN PRN Reason: FEVER/PAIN Apixaban (Eliquis*) 5 mg PO BID [facility] Last Admin: 06/21/18 08:11 Dose: 5 mg Dofetilide (Tikosyn Cap*) 250 mcg PO BID [facility] Last Admin: 06/21/18 08:12 Dose: 250 mcg Famotidine (Pepcid Tab*) 40 mg PO QPM [facility] Last Admin: 06/20/18 17:44 Dose: 40 mg Latanoprost (Xalatan 0.005%*) 1 drop BOTH EYES 2100 [facility] Last Admin: 06/20/18 20:25 Dose: 1 drop Metoprolol Succinate (Toprol Xl Tab*) 12.5 mg PO DAILY [facility] Last Admin: 06/21/18 10:12 Dose: 12.5 mg Metoprolol Tartrate (Lopressor Iv*) 5 mg IV Q4H PRN PRN Reason: HEART RATE/PULSE GREATER THAN: Last Admin: 06/17/18 19:16 Dose: 5 mg Pto: (Pirfenidone [ (Esbriet] 801 Mg)) 801 mg PO TID AC [facility] Last Admin: 06/21/18 12:37 Dose: 801 mg Objective Vital Signs: Temp Pulse Resp BP Pulse Ox 97.6 F 67 16 97/62 94 06/21/18 15:32 06/21/18 15:32 06/21/18 15:32 06/21/18 15:32 06/21/18 15:32 Laboratory Results: 06/18/18 05:56 06/21/18 06:25 Total Bilirubin 0.50 mg/dL (0.2-1.0) 06/17/18 16:52 AST 20 U/L (13-39) 06/17/18 16:52 ALT 29 U/L (7-52) 06/17/18 16:52 Alkaline Phosphatase 68 U/L (34-104) 06/17/18 16:52 B-Natriuretic Peptide 760 pg/mL (<=100) H 06/17/18 16:52 Total Protein 6.9 g/dL (6.4-8.9) 06/17/18 16:52 Albumin 4.0 g/dL (3.2-5.2) 06/17/18 16:52 Globulin 2.9 g/dL (2-4) 06/17/18 16:52 Albumin/Globulin Ratio 1.4 (1-3) 06/17/18 16:52 06/17/18 06/17/18 06/17/18 16:52 19:12 22:25 Troponin I 0.01 0.00 0.00
[2018-06-21] MEDS: Famotidine TAB* 20 MG PO SCH (17:16)
[2018-06-21] MEDS: Latanoprost 0.005%* 2.5 ml BTL BOTH EYES SCH (20:13)
[2018-06-22] MEDS: PIRFENIDONE 801 MG PO SCH ×2 (09:33→12:36)
[2018-06-22] MEDS: Dofetilide CAP* 250 MCG PO SCH (09:33)
[2018-06-22] MEDS: Apixaban* 5 MG TAB PO SCH (09:33)
[2018-06-22 12:19] VITALS: BP 115/60
--- NOTE | 2018-06-22 21:29 | CARD ---
PROCEDURE NOTE: DATE OF PROCEDURE: 06/20/18 PROCEDURE: Cardioversion. INDICATIONS: This is an 83-year-old gentleman with a history of sick sinus syndrome, paroxysmal atrial flutter. 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 He was admitted for rate control. He has difficult to control rates with his beta diya and digoxin due to his low normal blood pressures. DESCRIPTION OF PROCEDURE: The patient was in the fasting state for at least 6 hours and was brought to the lab for cardioversion. Informed consent was obtained. He was premedicated with approximately 3 mg of Versed and 25 mcg of fentanyl (see procedure worksheet for exact dosing). A single synchronized biphasic shock of 120 joules was applied with successful conversion to sinus rhythm. IMPRESSION: Successful conversion to sinus rhythm. Plan: Due to his low heart rate in the 50s to 60s, we will reduce his metoprolol and continue to monitor him. [id number]/[facility] #: [id number] CHRISTOFER
--- NOTE | 2018-06-22 22:27 | DS ---
CC: Dr. Pritchard; Dr. Vidales DISCHARGE SUMMARY: ADDENDUM: DISCHARGE MEDICATIONS: 1. Eliquis 5 mg b.i.d. 2. Tikosyn 250 mcg p.o. b.i.d. 3. Pepcid 40 mg q.p.m. 4. Xalatan 1 drop both eyes q.p.m. 5. Esbriet 801 mg t.i.d. [id number]/[facility] #: [id number] [facility]
--- NOTE | 2018-06-22 22:36 | DS ---
CC: Dr. Thony Vidales; Dr. Pritchard; Dr. Jean Magallon, [facility] DISCHARGE SUMMARY: DATE OF ADMISSION: DATE OF DISCHARGE: PATIENT OF: Dr. Pritchard. DIAGNOSES: 1. Paroxysmal atrial flutter. 2. Sick sinus syndrome. 3. Pulmonary fibrosis. 4. 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 5. Sleep apnea. PROCEDURES: Tikosyn loading and cardioversion, 06/21/18; and nuclear stress test, 06/19/10. HISTORY OF PRESENT ILLNESS/HOSPITAL COURSE: Mr. Portillo was admitted on because of atrial flutter with tachycardia. He has had cardioversion in the previous week for atrial flutter, but then had recurrent symptoms, was admitted on 06/17/18. He also had an echocardiogram performed on 06/13/18, which revealed a mild decrease in LV function with an EF of 40% to 45%, grade 3 restricted diastolic function, global hypokinesis with mild variation, perhaps relatively more pronounced inferior hypokinesis, mildly reduced RV function, RV mildly dilated, mild aortic stenosis, mild MR, cupu-de-lusznucy TR and mild-to- moderate pulmonary hypertension. Compared to the previous study of June 2016, EF had decreased from 55% to 60% then to 40% to 45% now. The RV hypokinesis was new and the PA pressure increased from 26 to 39. The patient was admitted and attempted rate control with difficulty controlling his rate due to his low normal blood pressures and difficulty tolerating a beta-diya. He also had a nuclear stress test performed on 06/19/18, which revealed decreased EF of 46%, diffuse hypokinesis with inferolateral dyskinesis, no fixed irreversible defects, fibrotic changes at the lung base, decreased ejection fraction, intermediate risk based on the low EF. Because of his reduced EF and yvzqlfdbd-ic-hicfuqo heart rate, he was started on Tikosyn and underwent a cardioversion on 06/20/18. He was able to convert to sinus rhythm and has maintained it. Initially, he was on beta-blockers postop, but developed blood pressures in the 90s and heart rates in the 50s. His metoprolol was decreased to 12.5 yesterday and was held today. Currently, he is feeling well, ambulating clearly around the mi. Has no syncope or near syncope. No palpitations, no orthopnea, no peripheral edema. PHYSICAL EXAMINATION: He is a well-developed, well-nourished gentleman, in no apparent distress. No significant JVD. Chest is clear. Cardiac Exam: S1, S2 with a soft 2/6 systolic ejection murmur at the base. Extremities: No edema. DIAGNOSTIC STUDIES/LAB DATA: His labs today included a sodium of 134, potassium of 4.4, BUN of 13, creatinine of 0.91, mag of 2.0. His white count on admission was 5.8, BUN of 14.1, hematocrit of 42, MCV elevated at 101, platelet count of 238. His EKG from today revealed sinus rhythm at 60 with QT of 445 and a QTc of 445, minor nonspecific ST changes overall, similar to 06/12/18 except for improvement in the heart rate from the sinus bradycardia rate of 56 and resolution in the APCs. He also had cardioversion performed. IMPRESSION AND PLAN: My impression is that Mr. Portillo appears to be improved after admission for Tikosyn loading, cardioversion. He did have evidence of reduced LV function raising possibility of a tachycardia-induced cardiomyopathy. I did discuss at length with him and his his diagnosis, his prognosis and possible intervention options. We also discussed the dangers of Tikosyn and the importance of avoiding drug interactions and I also explained that at some point he may require a pacemaker if he develops symptomatic tachybrady syndrome uncontrolled with medical therapy and/or recurrent tachyarrhythmias. He also may benefit from an ablation if he has continued tachyarrhythmias with tachycardia-induced cardiomyopathy despite Tikosyn. For the time being, I would recommend the following: I suggest that he avoid caffeine and alcohol. He is to continue on his current medications including anticoagulation. We have held beta-diya for the time being due to his bradycardia. I suggested that he avoid vigorous exertion and limit himself to mild gentle activities for the next week and then gradually increase back to his mild regular walking. We discussed his maximum predicted heart rate and reasonable exercise goals for him at 60% to 70% of maximum predicted heart rate. He is to have a followup visit as planned on 07/08/18 at 2 p.m. as already scheduled. He is to have a followup outpatient echo to reassess his LV function, which we will schedule. He is to confirm that Tikosyn is available at his pharmacy. He understands that he is not supposed to interrupt the dosing and would require repeat admission for loading again if he has a skipped dose. I suggested that he monitor his heart rate with his cardiac device and also consider getting a fitness watch to monitor his heart rate over longer periods of time and with exercise. We discussed the desirability of a EP consult to get another opinion regarding his options for treatment including possibility of an ablation in the future if he continues to have tachybrady syndrome and tachycardia-induced cardiomyopathy. Ideally, I would like to have him on a beta-diya and an MIKEY inhibitor for his reduced LV function; however, given his low heart rates and low blood pressures, he is not tolerating that. Hopefully, his EF will improve with control of his rhythm. Further recommendations will depend on his clinical course. ADDENDUM: DISCHARGE MEDICATIONS: 1. Eliquis 5 mg b.i.d. 2. Tikosyn 250 mcg p.o. b.i.d. 3. Pepcid 40 mg q.p.m. 4. Xalatan 1 drop both eyes q.p.m. 5. Esbriet 801 mg t.i.d. [id number]/CPS #: [id number] TIME SPENT: There was more than 70 minutes spent on this discharge and consultation with the patient and coordinating care. [id number]/CPS #: [id number] CHRISTOFER
== END 2018-06-22 14:07 | disposition home or self-care (01) | DRG 309 ==
LOC: ED 15:49 → MEDTELE 18:26 → OBSVTOIN 06-18 13:55
PROVIDERS: ADMIT Internal Medicine; ATTEND Specialist
PROC: 4A02XM4 Measurement of Cardiac Total Activity, External Approach (ICD-10-PCS; 2018-06-19)
PROC: 5A2204Z Restoration of Cardiac Rhythm, Single (ICD-10-PCS; principal; 2018-06-20 14:30)
DX: I48.92 Unspecified atrial flutter (principal); I50.22 Chronic systolic (congestive) heart failure; I48.0 Paroxysmal atrial fibrillation; I49.5 Sick sinus syndrome; I08.3 Combined rheumatic disorders of mitral, aortic and tricuspid valves; Z96.1 Presence of intraocular lens; I27.20 Pulmonary hypertension, unspecified; J84.112 Idiopathic pulmonary fibrosis; G47.33 Obstructive sleep apnea (adult) (pediatric); M15.9 Polyosteoarthritis, unspecified; I42.8 Other cardiomyopathies; I77.810 Thoracic aortic ectasia; I49.3 Ventricular premature depolarization; H40.9 Unspecified glaucoma; Z98.42 Cataract extraction status, left eye; Z98.41 Cataract extraction status, right eye; Z90.79 Acquired absence of other genital organ(s); Z85.828 Personal history of other malignant neoplasm of skin; Z72.89 Other problems related to lifestyle; Z87.891 Personal history of nicotine dependence; Z85.46 Personal history of malignant neoplasm of prostate; Z80.8 Family history of malignant neoplasm of other organs or systems; Z79.01 Long term (current) use of anticoagulants
CPT/HCPCS: 36415; 71045; 71046; 78452; 80048; 80053; 81003; 83605; 83735; 83880; 84100; 84484; 85025; 92960; 93005; 99156; 99157; 99284; A9270-GY; A9502; G0378; J1160; J1940; J2250; J2310; J2785; J3010; J3490

== ENCOUNTER 2018-07-18 04:20 | Inpatient (IN) | payer MEDICARE, OTHER ==
[2018-07-18] MEDS ORDERED: Acetaminophen TAB* 325 MG PO ONE (04:44)
--- NOTE | 2018-07-18 04:49 | ED ---
Shortness of Breath - HPI Summary HPI Summary: This patient is an 83 year old M brought in by ambulance to [facility] with a chief complaint of SOB that began prior to arrival. The patient rates the pain 0/10 in severity. Symptoms aggravated by exertion. Symptoms alleviated by nothing. Patient reports neck pain and back pain. Patient states he saw his recreation aide yesterday. - History of Current Complaint Time Seen by Provider: 07/18/18 04:26 Hx Obtained From: Patient Onset/Duration: Sudden Onset, Lasting Hours, Still Present Timing: Constant Current Severity: Mild Dyspnea At: Rest Aggrevating Factors: Movement Alleviating Factors: Nothing - Allergy/Home Medications Allergies/Adverse Reactions: Allergies Allergy/AdvReac Type Severity Reaction Status Date / Time No Known Allergies Allergy Verified 07/18/18 05:06 Home Medications: Home Medications Famotidine TAB* [Pepcid 20 MG TAB*] 20 mg PO DAILY PRN 07/18/18 [History Confirmed 07/18/18] predniSONE TAB* [Deltasone 10 MG TAB*] 40 mg PO DAILY 07/18/18 [History Confirmed 07/18/18] PMH/Surg Hx/FS Hx/Imm Hx Previously Healthy: No Endocrine/Hematology History: Denies: Hx Diabetes Cardiovascular History: Reports: Hx Valvular Heart Disease - Mild aortic stenosis Denies: Hx Angina, Hx Congenital Heart Disease, Hx Congestive Heart Failure, Hx Coronary Artery Disease, Hx Hypercholesterolemia, Hx Hypertension, Hx Myocardial Infarction Respiratory History: Reports: Other Respiratory Problems/Disorders - HX OF INTERSTITAL LUNG SCARRING, 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 Denies: Hx Asthma, Hx Chronic Obstructive Pulmonary Disease (COPD) - Pt does have pulmonary fibrosis History: Reports: Other Problems/Disorders - RADICAL PROSTECTOMY Denies: Hx Renal Disease Musculoskeletal History: Reports: Hx Arthritis, Hx Tendonitis - HX OF LEFT SHOULDER Sensory History: Reports: Hx Cataracts - HX OF, Hx Contacts or Glasses - READING GLASSES, Hx Glaucoma - BILATERAL, Hx Macular Degeneration Denies: Hx Hearing Aid Opthamlomology History: Reports: Hx Cataracts - HX OF, Hx Contacts or Glasses - READING GLASSES, Hx Glaucoma - BILATERAL, Hx Macular Degeneration Neurological History: Reports: Hx Seizures - AGE 16, NONE SINCE Denies: Hx CVA - Cancer History Cancer Type, 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 1996 RADICAL PROSTATECTOMY, [facility]. NUMEROUS SQUAMOUS AND BASAL CELL CARCINOMA SKIN EXCISION, OFFICE. 2009 BILATERAL CATARACT EXTRACTION WITH IOL IMPLANTS, [facility] Hx Anesthesia Reactions: No - SPINAL OR LOCAL Infectious Disease History: No Infectious Disease History: Reports: Hx Hepatitis - CONTROL WITH MED Denies: Hx Clostridium Difficile, Hx of Known/Suspected MRSA, Hx Shingles, Hx Tuberculosis, Traveled Outside the in Last 30 Days - Family History Known Family History: Positive: Other Family History: Father lived to 90 , mother to 97 - Social History Occupation: Retired Lives: Alone Alcohol Use: Occasionally Alcohol Amount: 1-2 glasses of wine/day Hx Substance Use: No Substance Use Type: Reports: None Hx Tobacco Use: Yes Smoking Status (MU): Former Smoker Type: Cigarettes Amount Used/How Often: 1 PPD FOR ABOUT 7-8 YEARS Length of Time of Smoking/Using Tobacco: 7-8 YEARS Have You Smoked in the Last Year: No Review of Systems Positive: Shortness Of Breath Positive: Other - Positive neck pain and back pain All Other Systems Reviewed And Are Negative: Yes Physical Exam - Summary Physical Exam Summary: VITAL SIGNS: Reviewed. GENERAL: Patient is a well-developed and nourished male who is lying comfortable in the stretcher. Patient is in any mild respiratory distress. HEAD AND FACE: No signs of trauma. No ecchymosis, hematomas or skull depressions. No sinus tenderness. EYES: PERRLA, EOMI x 2, No injected conjunctiva, no nystagmus. EARS: Hearing grossly intact. Ear canals and tympanic membranes are within normal limits. MOUTH: Oropharynx within normal limits. NECK: Supple, trachea is midline, no adenopathy, no JVD, no carotid bruit, no c- spine tenderness, neck with full ROM. CHEST: Symmetric, no tenderness at palpation LUNGS: Decreased breath sounds bilaterally. No wheezing or crackles. CVS: Regular rate and rhythm, S1 and S2 present, no murmurs or gallops appreciated. ABDOMEN: Soft, non-tender. No signs of distention. No rebound no guarding, and no masses palpated. Bowel sounds are normal. EXTREMITIES: FROM in all major joints, no edema, no cyanosis or clubbing. NEURO: Alert and oriented x 3. No acute neurological deficits. Speech is normal and follows commands. SKIN: Dry and warm Triage Information Reviewed: Yes Vital Signs On Initial Exam: Initial Vitals Temp Pulse Resp BP Pulse Ox 100.8 F 90 25 136/67 94 07/18/18 04:32 07/18/18 04:32 07/18/18 04:32 07/18/18 04:32 07/18/18 04:32 Vital Signs Reviewed: Yes Diagnostics - Vital Signs Vital Signs Temp Pulse Resp BP Pulse Ox 07/18/18 04:32 100.8 F 90 25 136/67 94 - Laboratory Result Diagrams: 07/18/18 04:48 07/18/18 04:48 Lab Statement: Any lab studies that have been ordered have been reviewed, and results considered in the medical decision making process. - Radiology Chest XR Radiology Interpretation Completed By: ED Physician Summary of Radiographic Findings: CXR reveals, per ED physician, bilateral interstitial infiltrate with worsening infiltrate over the R lung comparing to the XR he had on 06/18/18. - CT CTA Chest CT Interpretation Completed By: Radiologist Summary of CT Findings: CTA chest reveals, per radiologist, 1. There are extensive ground glass air space opacities noted in the bilateral lung charlton, findings may represent fluid overload versus infectious process. 2. There are chronic fibrotic changes noted in the bilateral lungs in the lung bases. There is peripheral honeycombing noted. There is traction bronchiectasis noted. Findings are compatible with chronic interstitial lung disease. 3. There is adequate opacification noted of pulmonary vasculature. There is no evidence of pulmonary embolus. 4. There are borderline enlarged mediastinal lymph nodes noted measuring up to 1.7 CM. ED physician has reviewed this radiology report. - EKG 0438 Cardiac Rate: NL EKG Rhythm: Sinus Rhythm - 70 BPM Summary of EKG Findings: An EKG taken at 0438 reveals nml sinus rhythm at 70 BPM with T wave changes in the inferior leads. Course/Dx - Course Course Of Treatment: This patient is an 83 year old M brought in by ambulance to [facility] with a chief complaint of SOB that began prior to arrival. Physical Exam Findings: Mild respiratory distress. Decreased breath sounds bilaterally. An EKG taken at 0438 reveals nml sinus rhythm at 70 BPM with T wave changes in the inferior leads. CXR reveals, per ED physician, bilateral interstitial infiltrate with worsening infiltrate over the R lung comparing to the XR he had on 06/18/18. CTA chest reveals, per radiologist, 1. There are extensive ground glass air space opacities noted in the bilateral lung charlton, findings may represent fluid overload versus infectious process. 2. There are chronic fibrotic changes noted in the bilateral lungs in the lung bases. There is peripheral honeycombing noted. There is traction bronchiectasis noted. Findings are compatible with chronic interstitial lung disease. 3. There is adequate opacification noted of pulmonary vasculature. There is no evidence of pulmonary embolus. 4. There are borderline enlarged mediastinal lymph nodes noted measuring up to 1.7 CM. Bloodwork obtained. In the ED course the patient was given Acetaminophen, contrast, and levofloxacin. Consult with Dr. Boateng ( hospitalist) at 0625. He agrees to admit the patient for further evaluation. The patient is agreeable with this plan. - Diagnoses Provider Diagnoses: Hypoxia, Pulmonary fibrosis - Physician Notifications Discussed Care of Patient With: Lico Boateng Time Discussed With Above Provider: 06:25 Instructed by Provider To: Other - Consult with Dr. Boateng (hospitalist) at 0625. He agrees to admit the patient for further evaluation. Discharge - Sign-Out/Discharge Documenting (check all that apply): Patient Departure - Admit [place] [facility] [place] Discharge Plan Condition: Stable Disposition: [facility]MITTED [facility] Referrals: Valentina Pritchard MD [Primary Care Provider] - - Attestation Statements Document Initiated by Scribe: Yes Documenting Scribe: Marysol Kirby Provider For Whom Khalida is Documenting (Include Credential): Dr. Richard Moore MD Scribe Attestation: IMarysol, scribed for Dr. Richard Moore MD on 07/18/18 at 0631. Status of Scribe Document: Ready
[2018-07-18] MEDS ORDERED: Levofloxacin 750 MG IVPREMIX(* 750 MG/150 ML BAG IVPB ONE (04:59)
--- OUTSIDE RECORDS SUMMARY | 2018-07-18 04:59 | XMS REPORT | Continuity of Care Document ---
:1935 External Reference #:[id number] Author Name Yanira Lam Care Team Providers Name Role Phone Valentina Pritchard MD Primary Care Physician Unavailable Payers Type Date Identification Numbers Payment Provider Subscriber Policy Number: [id number] Medicare Karl Portillo PayID: [id number] [address] [place] [address] Expires: 2018 Policy Number: [id number] Medicare Karl Portillo PayID: [id number] [address] [place] [address] Policy Number: [id number] [employer] Karl Portillo Group Number: [id number] [address] PayID: [id number] [place] [address] Advance Directives Description No Information Available Problems Date Description Provider Status Onset: 10/23/2016 Obstructive sleep apnea syndrome Emiliana Pollard MD Active Family History Date Family Member(s) Problem(s) Comments General PGM and PGGM Macular Degeneration Father due to Melanoma () Onset: (age 90 Father MT Years) Father Periodic intestinal blockages, intestinal polyps; Parkinson's Mother Anxiety, headaches, Dementia at age intestinal polyps, macular 97 from heart failure degeneration Mother due to MT () : (age 97 Mother due to [...] (more than 10 cigarettes/day) Smoking Status Reviewed: 07/08/18 Heavy tobacco smoker 1PPD (more than 10 cigarettes/day) Exercise Type/Frequency Exercises regularly walks briskly everyday Allergies, Adverse Reactions, Alerts Description No Known Drug Allergies Medications Medication Date Status Form Strength Qnty SIG Indications Ordering Provider Dofetilide 06/22/ Active Capsules 250mcg 180ca 1 tab by Thony 2017 ps mouth twice F. a day Elaine Vidales Metoprolol 06/10/ Active Tablets 25mg 60tab 1/2 by mouth I48.4 Thony Tartrate 2017 s prn Marisabel Vidales M.D. Eliquis 10/22/ Active Tablets [...] take 1 Unknown 0000 tablet by mouth as needed Tylenol Extra / Active Tablets 500mg 2 by mouth Unknown Strength 0000 as needed Esbriet / Active Tablets 801mg 1 po tid, Unknown 0000 with meals Aspir-81 06/12/ Hx Tablets DR 81mg 30tab 1 by mouth Thony 2015 - s every day F. 11/28/ Quentin Vidales M.D. Timolol / Hx Solution 0.5% 1 gtt both Unknown Maleate 0000 - eyes bid 2015 Ranitidine HCL / Hx Tablets 150mg take one Unknown 0000 - tablet by 03/19/ mouth twice 2017 a day Vitamin /00/ Hx Tablets 800Units 1 tablet po Unknown D3/Calcium 0000 - every day 2017 Occuvite / Hx use twice Unknown 0000 - daily as 2015 Vitamin A 00/ Hx Capsules 28,640Unit daily Unknown 0000 - 2017 Vitamin C 00/ Hx Tablets 452mg 1 by mouth Unknown 0000 - every day 2017 Vitamin E 0000/ Hx Capsules 400Unit 1 capsule po Unknown 0000 - daily 2017 Zinc 00/ Hx Tablets 69.6mg 1 tablet by Unknown 0000 - mouth daily 2017 Copper 0000/ Hx Tablets 1.6mg 1 tablet my Unknown 0000 - mouth daily 2017 Immunizations Description No Information Available Vital Signs Date Vital Result Comment 07/08/2018 1:25pm Height 70 inches 5'10" Weight 167.00 lb without shoes Heart Rate 64 /min BP Systolic Sitting 126 mmHg reg cuff BP Diastolic Sitting 84 mmHg reg cuff BP Systolic Standing 132 mmHg reg cuff BP Diastolic Standing 82 mmHg reg cuff Respiratory Rate 16 /min BMI (Body Mass Index) 24.0 kg/m2 06/14/2018 11:14am Height 70 inches 5'10" Weight [...] Date Facility Test Result H/L Range Note Laboratory test 06/11/2018 [facility] B-Type 272 pg/mL High <= [address] [place] [address] Peptide BNP [phone] Basic Metabolic 06/11/2018 [facility] Sodium 134 mmol/L Low 135-[address] [place] [address] [phone] Potassium 4.4 mmol/L N 3.5-5.0 Chloride 103 mmol/L N 101-111 Co2 Carbon Dioxide 25 mmol/L N 22-32 Anion Gap 6 mmol/L N 2-11 Glucose 94 mg/dL N 70-100 Blood Urea Nitrogen 11 mg/dL N 6-24 Creatinine 0.90 mg/dL N 0.67-1.17 BUN/Creatinine Ratio 12.2 N 8-20 Calcium 9.7 mg/dL N 8.6-10.3 Egfr Non- 81.0 >60 Egfr 98.0 >60 1 Laboratory test 06/11/2018 [facility] Magnesium 2.1 mg/dL N 1.9-2.[address] [place] [address] [phone] 1 Because ethnic data is not always [...] (or dialysis) Procedures Date Code Description Status 07/08/2018 50204 EKG Tracing & Interpretation Completed 06/20/2018 12865 Cardioversion Completed 06/19/2018 68171 Treadmill Interp/Report Only Completed 06/19/2018 81144 Stress Test Supervsn W/Out I/R Completed 06/13/2018 24260 ECHO Transthoracic, Real-Time 2D With Doppler And Completed Color Flow 06/13/2018 84011 ECHO Transthoracic, Real-Time 2D With Doppler And Completed Color Flow 06/11/2018 34077 Cardioversion Completed 06/10/2018 55508 EKG Tracing & Interpretation Completed 10/29/2017 87819 EKG Tracing & Interpretation Completed 03/30/2017 15256 Holter Monitor Review (24 hr)dr review & interp only Completed 03/29/2017 65157 ECG Monitor/Recording W/Visual Superimposition Completed Scanning 03/20/2017 75098 EKG Tracing & Interpretation Completed 11/14/2016 38559 Polysomnography Sleep Staging 4+ Parameters Completed 08/25/2016 41207 EKG Tracing & Interpretation Completed 08/13/2016 44146 Holter Monitor Review (24 hr)dr review & interp only Completed 08/09/2016 60225 ECG Monitor/Recording W/Visual Superimposition Completed Scanning 06/28/2016 75695 ECHO Stress Test Incl Perf Contiuous ekg Monitoring Completed W/Phys Superv 06/28/2016 99386 ECHO Stress Test Incl Perf Contiuous ekg Monitoring Completed W/Phys Superv 06/22/2016 55174 ECHO Transthoracic, Real-Time 2D With Doppler And Completed Color Flow 06/22/2016 996465334 Diabetic Retinal Eye Exam Completed 06/21/2016 92075 Holter Monitor Review (24 hr)dr review & interp only Completed 06/19/2016 05186 ECG Monitor/Recording W/Visual Superimposition Completed Scanning 06/13/2016 02876 EKG Tracing & Interpretation Completed Encounters Type Date Location Provider Dx Diagnosis Office Visit 06/21/2018 [facility] Thony Petit I49.5 Sick sinus 3:19p Elaine Vidales syndrome I48.92 Unspecified atrial flutter Office Visit 06/19/2018 12:16p [facility] Jayne Rapp, I48.0 Paroxysmal atrial Of Leroy Henry fibrillation Office Visit 06/18/2018 11:42a [facility] Roger Devlin I48.0 Paroxysmal atrial Of Leroy Gonsalves M.D. fibrillation I48.92 Unspecified atrial flutter I50.9 Heart failure, unspecified Office Visit 06/14/2018 [facility] G47.33 Obstructive sleep 11:15a [facility] Dietrich, BEV, apnea (adult) [facility] SAP ARCHITECT-BC (pediatric) R09.02 Hypoxemia Z99.89 Dependence on other enabling machines and devices Office Visit 06/10/2018 10:40a [facility] Thony Petit G47.33 Obstructive sleep Elaine Vidales apnea (adult) (pediatric) I48.0 Paroxysmal atrial fibrillation R94.31 Abnormal electrocardiogram [ECG] [EKG] R06.00 Dyspnea, unspecified J84.10 Pulmonary fibrosis, unspecified I48.4 Atypical atrial flutter Office Visit 10/29/2017 3:40p [facility] Thony Petit G47.33 Obstructive sleep Of Leroy Vidales M.D. 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) Office Visit 03/20/2017 3:40p [facility] Thnoy Petit G47.33 Obstructive sleep Elaine Vidales apnea (adult) (pediatric) R09.02 Hypoxemia I48.0 Paroxysmal atrial fibrillation I49.5 Sick sinus syndrome R94.31 Abnormal electrocardiogram [ECG] [EKG] Office Visit 11/29/2016 [facility] G47.33 Obstructive sleep 2:00p [facility] Dietrich RN, apnea (adult) [facility]- (pediatric) R09.02 Hypoxemia Office Visit 10/23/2016 11:00a [facility] Emiliana G47.33 Obstructive sleep [facility] Of MD Atul apnea (adult) [facility] (pediatric) I49.9 Cardiac arrhythmia, unspecified Office Visit 08/25/2016 9:00a [facility] Thony Petit I48.0 Paroxysmal atrial Mauser, M.D. fibrillation R00.1 Bradycardia, unspecified G47.33 Obstructive sleep apnea (adult) (pediatric) Office Visit 06/13/2016 2:00p [facility] Thony Petit I48.0 Paroxysmal atrial Mauser, M.D. fibrillation I10 Essential (primary) hypertension M79.602 Pain in left arm G47.9 Sleep disorder, unspecified R00.1 Bradycardia, unspecified Office Visit 05/23/2016 [facility] I48.91 Unspecified 2:43p Assoc,florin Bustillos, [facility] atrial Hospitalists fibrillation Plan of Treatment Future Appointment(s):08/07/2018 11:00 am - Thony Vidales M.D. at [facility]07/11/2018 10:00 am - [place] E[facility] Schedule at [facility]2018 11:15 am - Reina Dietrich DNP, RN, SAP ARCHITECT-BC at [facility]07/08/2018 - Yen Kaba, NPI48.0 Paroxysmal atrial fibrillationFollow up:f/u in 3-[address] Vidales after 07/23/2017 so he can review EP recommendations with you.I50.9 Heart failure, bsfksbqbytzH82.33 Obstructive sleep apnea (adult) (pediatric)E78.5 Hyperlipidemia, ukwkgcgqjpkK78.0 Nonrheumatic aortic (valve) stenosis
--- OUTSIDE RECORDS SUMMARY | 2018-07-18 04:59 | XMS REPORT | Continuity of Care Document ---
:1935 External Reference #:[id number] Author Name Teresa Miranda Care Team Providers Name Role Phone Valentina Pritchard MD Primary Care Physician Unavailable Payers Type Date Identification Numbers Payment Provider Subscriber Policy Number: [id number] Medicare Karl Portillo PayID: [id number] [address] [place] [address] Expires: 2018 Policy Number: [id number] Medicare Karl Portillo PayID: [id number] [address] [place] [address] Policy Number: [id number] [employer] Karl Portillo Group Number: [id number] [address] PayID: [id number] [place] [address] Advance Directives Description No Information Available Problems Date Description Provider Status Onset: 10/23/2016 Obstructive sleep apnea syndrome Emiliana Pollard MD Active Family History Date Family Member(s) Problem(s) Comments General PGM and PGGM Macular Degeneration Father due to Melanoma () Onset: (age 90 Father [place] Years) Father Periodic intestinal blockages, intestinal polyps; Parkinson's Mother Anxiety, headaches, Dementia at age intestinal polyps, macular 89 from heart failure degeneration Mother due to ME () : (age 97 Mother due to [...] 0000 - daily as 2015 Vitamin A 00/00/ Hx Capsules 28,640Unit daily Unknown 0000 - 2017 Vitamin C 0000/ Hx Tablets 452mg 1 by mouth Unknown 0000 - every day 2017 Vitamin E 00/00/ Hx Capsules 400Unit 1 capsule po Unknown 0000 - daily 2017 Zinc 00/00/ Hx Tablets 69.6mg 1 tablet by Unknown [...] Result H/L Range Note Laboratory test 06/11/2018 [facility] Magnesium 2.1 mg/dL N 1.9-2.7 finding [address] [place] [address] [phone] Basic Metabolic 06/11/2018 [facility] Sodium 134 mmol/L Low 135-145 Panel [address] [place] [address] [phone] Potassium 4.4 mmol/L N 3.5-5.0 Chloride 103 mmol/L N 101-111 Co2 Carbon Dioxide 25 mmol/L N 22-32 Anion Gap 6 mmol/L N 2-11 Glucose 94 mg/dL N 70-100 Blood Urea Nitrogen 11 mg/dL N 6-24 Creatinine 0.90 mg/dL N 0.67-1.17 BUN/Creatinine Ratio 12.2 N 8-20 Calcium 9.7 mg/dL N 8.6-10.3 Egfr Non- 81.0 >60 Egfr 98.0 >60 1 Laboratory test 06/11/2018 [facility] B-Type 272 pg/mL High <= [address] [place] [address] Peptide BNP [phone] 1 Because ethnic data is not always [...] dialysis) Procedures Date Code Description Status 06/13/2018 76577 ECHO Transthoracic, Real-Time 2D With Doppler And Completed Color Flow 06/13/2018 60864 ECHO Transthoracic, Real-Time 2D With Doppler And Completed Color Flow 06/11/2018 09644 Cardioversion Completed 06/10/2018 37548 EKG Tracing & Interpretation Completed 10/29/2017 75775 EKG Tracing & Interpretation Completed 03/30/2017 55812 Holter Monitor Review (24 hr)dr hill & interp only Completed 03/29/2017 76510 ECG Monitor/Recording W/Visual Superimposition Completed Scanning 03/20/2017 46292 EKG Tracing & Interpretation Completed 11/14/2016 53305 Polysomnography Sleep Staging 4+ Parameters Completed 08/25/2016 84661 EKG Tracing & Interpretation Completed 08/13/2016 53655 Holter Monitor Review (24 hr)dr hill & ofeliap only Completed 08/09/2016 03481 ECG Monitor/Recording W/Visual Superimposition Completed Scanning 06/28/2016 37343 ECHO Stress Test Incl Perf Contiuous ekg Monitoring Completed W/Phys Superv 06/28/2016 00393 ECHO Stress Test Incl Perf Contiuous ekg Monitoring Completed W/Phys Superv 06/22/2016 08224 ECHO Transthoracic, Real-Time 2D With Doppler And Completed Color Flow 06/22/2016 117082578 Diabetic Retinal Eye Exam Completed 06/21/2016 43206 Holter Monitor Review (24 hr) review & interp only Completed 06/19/2016 93542 ECG Monitor/Recording W/Visual Superimposition Completed Scanning 06/13/2016 15189 EKG Tracing & Interpretation Completed Encounters Type Date Location Provider Dx Diagnosis Office Visit 06/14/2018 [facility] Simón Dobson.33 Obstructive sleep 11:15a [facility]AL[facility], NADIA-SAURAV apnea (adult) [facility] (pediatric) R09.02 Hypoxemia Z99.89 Dependence on other enabling machines and devices Office Visit 06/10/2018 10:40a [facility] Thony Conti7.33 Obstructive sleep Elaine Vidales apnea (adult) (pediatric) I48.0 Paroxysmal atrial fibrillation R94.31 Abnormal electrocardiogram [ECG] [EKG] R06.00 Dyspnea, unspecified J84.10 Pulmonary fibrosis, unspecified I48.4 Atypical atrial flutter Office Visit 10/29/2017 3:40p [facility] Thony Conti7.33 Obstructive sleep Of Leroy Vidales M.D. 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) Office Visit 03/20/2017 3:40p [facility] Thony Conti7.33 Obstructive sleep Elaine Vidales apnea (adult) (pediatric) R09.02 Hypoxemia I48.0 Paroxysmal atrial fibrillation I49.5 Sick sinus syndrome R94.31 Abnormal electrocardiogram [ECG] [EKG] Office Visit 11/29/2016 [facility] Reina G47.33 Obstructive sleep 2:00p [facility] SAMRA Dietrich RN, apnea (adult) [facility] (pediatric) R09.02 Hypoxemia Office Visit 10/23/2016 11:00a [facility] Emiliana G47.33 Obstructive sleep [facility] MD Atul apnea (adult) [facility] (pediatric) I49.9 Cardiac arrhythmia, unspecified Office Visit 08/25/2016 9:00a [facility] Thony F. I48.0 Paroxysmal atrial Mauser, M.D. fibrillation R00.1 Bradycardia, unspecified G47.33 Obstructive sleep apnea (adult) (pediatric) Office Visit 06/13/2016 2:00p [facility] Thony F. I48.0 Paroxysmal atrial Mauser, M.D. fibrillation I10 Essential (primary) hypertension M79.602 Pain in left arm G47.9 Sleep disorder, unspecified R00.1 Bradycardia, unspecified Office Visit 05/23/2016 [facility] I48.91 Unspecified 2:43p Assoc,florin Bustillos NP atrial Hospitalists fibrillation Plan of Treatment Future Appointment(s):07/08/2018 2:00 pm - Yen Kaba NP at [facility]06/16/2019 11:15 am - Reina Dietrich DNP, RN, OIL HEAT TECHNICIAN-BC at [facility]06/14/2018 - Reina Dietrich DNP, RN, [facility]- [id number] Obstructive sleep apnea (adult) (pediatric)Follow up:1 year [...] and surgery discussed. Dr Zeke DDS in [place] takes Medicare for the appliance, you may want to consult with him to see if adjustments needed to improve overall treatment.R09.02 HypoxemiaNew Orders:Pulse Oximetry Overnight, Ordered: 06/14/18Recommendations: Due to recent problems with A. Flutter. Pulse oximery to assure oral appliance is helping. You may need new device.Z99.89 Dependence on other enabling machines and devices
--- OUTSIDE RECORDS SUMMARY | 2018-07-18 05:00 | XMS REPORT | Continuity of Care Document ---
:1935 External Reference #:[id number] Author Name Teresa Miranda Care Team Providers Name Role Phone Valentina Pritchard MD Primary Care Physician Unavailable Payers Type Date Identification Numbers Payment Provider Subscriber Policy Number: [id number] Medicare Karl Portillo PayID: [id number] [address] [place] [address] Expires: 2018 Policy Number: [id number] Medicare Karl Portillo PayID: [id number] [address] [place] [address] Policy Number: [id number] [employer] Karl Portillo Group Number: [id number] [address] PayID: [id number] [place] [address] Advance Directives Description No Information Available Problems Date Description Provider Status Onset: 10/23/2016 Obstructive sleep apnea syndrome Emiliana Pollard MD Active Family History Date Family Member(s) Problem(s) Comments General PGM and PGGM Macular Degeneration Father due to Melanoma () Onset: (age 90 Father [place] Years) Father Periodic intestinal blockages, intestinal polyps; Parkinson's Mother Anxiety, headaches, Dementia at age intestinal polyps, macular 89 from heart failure degeneration Mother due to AL () : (age 97 Mother due to [...] mouth Thony 2015 - s every day Beulah 11/28/ Quentin Vidales M.D. Timolol / Hx [...] Result H/L Range Note Laboratory test 06/11/2018 [facility] Magnesium 2.1 mg/dL N 1.9-2.7 finding [address] [place] [address] [phone] Basic Metabolic 06/11/2018 [facility] Sodium 134 mmol/L Low 135-145 Panel [address] [place] [address] [phone] Potassium 4.4 mmol/L N 3.5-5.0 Chloride 103 mmol/L N 101-111 Co2 Carbon Dioxide 25 mmol/L N 22-32 Anion Gap 6 mmol/L N 2-11 Glucose 94 mg/dL N 70-100 Blood Urea Nitrogen 11 mg/dL N 6-24 Creatinine 0.90 mg/dL N 0.67-1.17 BUN/Creatinine Ratio 12.2 N 8-20 Calcium 9.7 mg/dL N 8.6-10.3 Egfr Non- 81.0 >60 Egfr 98.0 >60 1 Laboratory test 06/11/2018 [facility] B-Type 272 pg/mL High <= [address] [place] [address] Peptide BNP [phone] 1 Because ethnic data is not always [...] dialysis) Procedures Date Code Description Status 06/13/2018 39360 ECHO Transthoracic, Real-Time 2D With Doppler And Completed Color Flow 06/13/2018 91608 ECHO Transthoracic, Real-Time 2D With Doppler And Completed Color Flow 06/11/2018 08750 Cardioversion Completed 06/10/2018 82246 EKG Tracing & Interpretation Completed 10/29/2017 51812 EKG Tracing & Interpretation Completed 03/30/2017 57413 Holter Monitor Review (24 hr)dr review & interp only Completed 03/29/2017 48651 ECG Monitor/Recording W/Visual Superimposition Completed Scanning 03/20/2017 74265 EKG Tracing & Interpretation Completed 11/14/2016 98133 Polysomnography Sleep Staging 4+ Parameters Completed 08/25/2016 58989 EKG Tracing & Interpretation Completed 08/13/2016 49743 Holter Monitor Review (24 hr)dr review & interp only Completed 08/09/2016 03950 ECG Monitor/Recording W/Visual Superimposition Completed Scanning 06/28/2016 33074 ECHO Stress Test Incl Perf Contiuous ekg Monitoring Completed W/Phys Superv 06/28/2016 47893 ECHO Stress Test Incl Perf Contiuous ekg Monitoring Completed W/Phys Superv 06/22/2016 69699 ECHO Transthoracic, Real-Time 2D With Doppler And Completed Color Flow 06/22/2016 969520537 Diabetic Retinal Eye Exam Completed 06/21/2016 57230 Holter Monitor Review (24 hr)dr review & interp only Completed 06/19/2016 44471 ECG Monitor/Recording W/Visual Superimposition Completed Scanning 06/13/2016 64178 EKG Tracing & Interpretation Completed Encounters Type Date Location Provider Dx Diagnosis Office Visit 06/14/2018 [facility] Dobson.33 Obstructive sleep 11:15a [facility], NADIA-SAURAV apnea (adult) [facility] (pediatric) R09.02 Hypoxemia Z99.89 Dependence on other enabling machines and devices Office Visit 06/10/2018 10:40a [facility] Thony Conti7.33 Obstructive sleep Elaine Vidales apnea (adult) (pediatric) I48.0 Paroxysmal atrial fibrillation R94.31 Abnormal electrocardiogram [ECG] [EKG] R06.00 Dyspnea, unspecified J84.10 Pulmonary fibrosis, unspecified I48.4 Atypical atrial flutter Office Visit 10/29/2017 3:40p [facility] Thony Conti7.33 Obstructive sleep Of Leroy Vidales M.D. 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) Office Visit 03/20/2017 3:40p [facility] Thony Conti7.33 Obstructive sleep Elaine Vidales apnea (adult) (pediatric) R09.02 Hypoxemia I48.0 Paroxysmal atrial fibrillation I49.5 Sick sinus syndrome R94.31 Abnormal electrocardiogram [ECG] [EKG] Office Visit 11/29/2016 [facility] Reina Conti7.33 Obstructive sleep 2:00p [facility] SAMRA Dietrich RN, apnea (adult) [facility] (pediatric) R09.02 Hypoxemia Office Visit 10/23/2016 11:00a [facility] Azar Conti7.33 Obstructive sleep [facility] MD Atul apnea (adult) [facility] (pediatric) I49.9 Cardiac arrhythmia, unspecified Office Visit 08/25/2016 9:00a [facility] Tohny F. I48.0 Paroxysmal atrial Mauser, M.D. fibrillation R00.1 Bradycardia, unspecified G47.33 Obstructive sleep apnea (adult) (pediatric) Office Visit 06/13/2016 2:00p [facility] Thony Petit I48.0 Paroxysmal atrial Mauser, M.D. fibrillation I10 Essential (primary) hypertension M79.602 Pain in left arm G47.9 Sleep disorder, unspecified R00.1 Bradycardia, unspecified Office Visit 05/23/2016 [facility] I48.91 Unspecified 2:43p Assoc,florin Bustillos NP atrial Hospitalists fibrillation Plan of Treatment Future Appointment(s):07/08/2018 2:00 pm - Yen Kaba NP at [facility]06/16/2019 11:15 am - Reina Dietrich DNP, RN, TOWER DRAGLINE OPERATOR-BC at [facility]06/14/2018 - Reina Dietrich DNP, RN, TOWER DRAGLINE OPERATOR- BCG47.33 Obstructive sleep apnea (adult) (pediatric)Follow up:1 [...] and surgery discussed. Dr Zeke DDS in [place] takes Medicare for the appliance, you may want to consult with him to see if adjustments needed to improve overall treatment.R09.02 HypoxemiaNew Orders:Pulse Oximetry Overnight, Ordered: 06/14/18Recommendations: Due to recent problems with A. Flutter. Pulse oximery to assure oral appliance is helping. You may need new device.Z99.89 Dependence on other enabling machines and devices
--- OUTSIDE RECORDS SUMMARY | 2018-07-18 05:00 | XMS REPORT | Continuity of Care Document ---
:1935 External Reference #:[id number] Author Name Teresa Miranda Care Team Providers Name Role Phone Valentina Pritchard MD Primary Care Physician Unavailable Payers Type Date Identification Numbers Payment Provider Subscriber Policy Number: [id number] Medicare Karl Portillo PayID: [id number] [address] [place] [address] Expires: 2018 Policy Number: [id number] Medicare Karl Portillo PayID: [id number] [address] [place] [address] Policy Number: [id number] [employer] Karl Portillo Group Number: [id number] [address] PayID: [id number] [place] [address] Advance Directives Description No Information Available Problems Date Description Provider Status Onset: 10/23/2016 Obstructive sleep apnea syndrome Emiliana Pollard MD Active Family History Date Family Member(s) Problem(s) Comments General PGM and PGGM Macular Degeneration Father due to Melanoma () Onset: (age 90 Father MS Years) Father Periodic intestinal blockages, intestinal polyps; Parkinson's Mother Anxiety, headaches, Dementia at age intestinal polyps, macular 89 from heart failure degeneration Mother due to MS () : (age 97 Mother due to [...] Result H/L Range Note Laboratory test 06/11/2018 [facility] Magnesium 2.1 mg/dL N 1.9-2.7 finding [address] [place] [address] [phone] Basic Metabolic 06/11/2018 [facility] Sodium 134 mmol/L Low 135-145 Panel [address] [place] [address] [phone] Potassium 4.4 mmol/L N 3.5-5.0 Chloride 103 mmol/L N 101-111 Co2 Carbon Dioxide 25 mmol/L N 22-32 Anion Gap 6 mmol/L N 2-11 Glucose 94 mg/dL N 70-100 Blood Urea Nitrogen 11 mg/dL N 6-24 Creatinine 0.90 mg/dL N 0.67-1.17 BUN/Creatinine Ratio 12.2 N 8-20 Calcium 9.7 mg/dL N 8.6-10.3 Egfr Non- 81.0 >60 Egfr 98.0 >60 1 Laboratory test 06/11/2018 [facility] B-Type 272 pg/mL High <= [address] [place] [address] Peptide BNP [phone] 1 Because ethnic data is not always [...] dialysis) Procedures Date Code Description Status 06/13/2018 69499 ECHO Transthoracic, Real-Time 2D With Doppler And Completed Color Flow 06/11/2018 23018 Cardioversion Completed 06/10/2018 14040 EKG Tracing & Interpretation Completed 10/29/2017 37476 EKG Tracing & Interpretation Completed 03/30/2017 47582 Holter Monitor Review (24 hr)dr hill & interp only Completed 03/29/2017 35956 ECG Monitor/Recording W/Visual Superimposition Completed Scanning 03/20/2017 89278 EKG Tracing & Interpretation Completed 11/14/2016 80985 Polysomnography Sleep Staging 4+ Parameters Completed 08/25/2016 50639 EKG Tracing & Interpretation Completed 08/13/2016 96597 Holter Monitor Review (24 hr)dr hill & tato only Completed 08/09/2016 41210 ECG Monitor/Recording W/Visual Superimposition Completed Scanning 06/28/2016 05240 ECHO Stress Test Incl Perf Contiuous ekg Monitoring Completed W/Phys Superv 06/28/2016 43840 ECHO Stress Test Incl Perf Contiuous ekg Monitoring Completed W/Phys Superv 06/22/2016 72914 ECHO Transthoracic, Real-Time 2D With Doppler And Completed Color Flow 06/22/2016 155755845 Diabetic Retinal Eye Exam Completed 06/21/2016 32611 Holter Monitor Review (24 hr)dr review & interp only Completed 06/19/2016 79077 ECG Monitor/Recording W/Visual Superimposition Completed Scanning 06/13/2016 45132 EKG Tracing & Interpretation Completed Encounters Type Date Location Provider Dx Diagnosis Office Visit 06/14/2018 [facility] Reina Dietrich G47.33 Obstructive sleep 11:15a [facility] BEV CABRAL[facility], NADIA-SAURAV apnea (adult) [facility] (pediatric) R09.02 Hypoxemia Z99.89 Dependence on other enabling machines and devices Office Visit 10/29/2017 3:40p [facility] Thony Petit G47.33 Obstructive sleep Of Leroy Vidales M.D. 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) Office Visit 03/20/2017 3:40p [facility] Thony Petit G47.33 Obstructive sleep Elaine Vidales apnea (adult) (pediatric) R09.02 Hypoxemia I48.0 Paroxysmal atrial fibrillation I49.5 Sick sinus syndrome R94.31 Abnormal electrocardiogram [ECG] [EKG] Office Visit 11/29/2016 [facility] Reina G47.33 Obstructive sleep 2:00p [facility] SAMRA Dietrich RN, apnea (adult) [facility] (pediatric) R09.02 Hypoxemia Office Visit 10/23/2016 11:00a [facility] And Emiliana G47.33 Obstructive sleep [facility] Of MD Atul apnea (adult) [facility] (pediatric) I49.9 Cardiac arrhythmia, unspecified Office Visit 08/25/2016 9:00a [facility] Thony Petit I48.0 Paroxysmal atrial Elaine Vidales fibrillation R00.1 Bradycardia, unspecified G47.33 Obstructive sleep apnea (adult) (pediatric) Office Visit 06/13/2016 2:00p [facility] Petit I48.0 Paroxysmal atrial Elaine Vidales fibrillation I10 Essential (primary) hypertension M79.602 Pain in left arm G47.9 Sleep disorder, unspecified R00.1 Bradycardia, unspecified Office Visit 05/23/2016 [facility] I48.91 Unspecified 2:43p Assoc,florin Bustillos NP atrial Hospitalists fibrillation Plan of Treatment Future Appointment(s):07/08/2018 2:00 pm - Yen Kaba NP at [facility]06/16/2019 11:15 am - Reina Dietrich DNP, RN, SALES ROUTE DRIVER HELPER-BC at [facility]06/14/2018 - Reina Dietrich DNP, RN, SALES ROUTE DRIVER HELPER- BCG47.33 Obstructive sleep apnea (adult) (pediatric)Follow up:1 [...] and surgery discussed. Dr Zeke DDS in [place] takes Medicare for the appliance, you may want to consult with him to see if adjustments needed to improve overall treatment.R09.02 HypoxemiaNew Orders:Pulse Oximetry Overnight, Ordered: 06/14/18Recommendations: Due to recent problems with A. Flutter. Pulse oximery to assure oral appliance is helping. You may need new device.Z99.89 Dependence on other enabling machines and devices
--- OUTSIDE RECORDS SUMMARY | 2018-07-18 05:00 | XMS REPORT | Continuity of Care Document ---
:1935 External Reference #:[id number] Author Name Teresa Miranda Care Team Providers Name Role Phone Valentina Pritchard MD Primary Care Physician Unavailable Payers Type Date Identification Numbers Payment Provider Subscriber Policy Number: [id number] Medicare Karl Portillo PayID: [id number] [address] [place] [address] Expires: 2018 Policy Number: [id number] Medicare Karl Portillo PayID: [id number] [address] [place] [address] Policy Number: [id number] [employer] Karl Portillo Group Number: [id number] [address] PayID: [id number] [place] [address] Advance Directives Description No Information Available Problems Date Description Provider Status Onset: 10/23/2016 Obstructive sleep apnea syndrome Emiliana Pollard MD Active Family History Date Family Member(s) Problem(s) Comments General PGM and PGGM Macular Degeneration Father due to Melanoma () Onset: (age 90 Father SD Years) Father Periodic intestinal blockages, intestinal polyps; Parkinson's Mother Anxiety, headaches, Dementia at age intestinal polyps, macular 89 from heart failure degeneration Mother due to SD () : (age 97 Mother due to [...] Result H/L Range Note Laboratory test 06/11/2018 [facility] Magnesium 2.1 mg/dL N 1.9-2.7 finding [address] [place] [address] [phone] Basic Metabolic 06/11/2018 [facility] Sodium 134 mmol/L Low 135-145 Panel [address] [place] [address] [phone] Potassium 4.4 mmol/L N 3.5-5.0 Chloride 103 mmol/L N 101-111 Co2 Carbon Dioxide 25 mmol/L N 22-32 Anion Gap 6 mmol/L N 2-11 Glucose 94 mg/dL N 70-100 Blood Urea Nitrogen 11 mg/dL N 6-24 Creatinine 0.90 mg/dL N 0.67-1.17 BUN/Creatinine Ratio 12.2 N 8-20 Calcium 9.7 mg/dL N 8.6-10.3 Egfr Non- 81.0 >60 Egfr 98.0 >60 1 Laboratory test 06/11/2018 [facility] B-Type 272 pg/mL High <= [address] [place] [address] Peptide BNP [phone] 1 Because ethnic data is not always [...] dialysis) Procedures Date Code Description Status 06/13/2018 74060 ECHO Transthoracic, Real-Time 2D With Doppler And Completed Color Flow 06/13/2018 58143 ECHO Transthoracic, Real-Time 2D With Doppler And Completed Color Flow 06/11/2018 81335 Cardioversion Completed 06/10/2018 23854 EKG Tracing & Interpretation Completed 10/29/2017 74907 EKG Tracing & Interpretation Completed 03/30/2017 45664 Holter Monitor Review (24 hr)dr hill & interp only Completed 03/29/2017 95567 ECG Monitor/Recording W/Visual Superimposition Completed Scanning 03/20/2017 73379 EKG Tracing & Interpretation Completed 11/14/2016 22227 Polysomnography Sleep Staging 4+ Parameters Completed 08/25/2016 43462 EKG Tracing & Interpretation Completed 08/13/2016 23253 Holter Monitor Review (24 hr)dr hill & ofeliap only Completed 08/09/2016 44435 ECG Monitor/Recording W/Visual Superimposition Completed Scanning 06/28/2016 98036 ECHO Stress Test Incl Perf Contiuous ekg Monitoring Completed W/Phys Superv 06/28/2016 29442 ECHO Stress Test Incl Perf Contiuous ekg Monitoring Completed W/Phys Superv 06/22/2016 12893 ECHO Transthoracic, Real-Time 2D With Doppler And Completed Color Flow 06/22/2016 613957070 Diabetic Retinal Eye Exam Completed 06/21/2016 53912 Holter Monitor Review (24 hr) review & interp only Completed 06/19/2016 19049 ECG Monitor/Recording W/Visual Superimposition Completed Scanning 06/13/2016 45296 EKG Tracing & Interpretation Completed Encounters Type Date Location Provider Dx Diagnosis Office Visit 06/14/2018 [facility] Simón Dobson.33 Obstructive sleep 11:15a [facility] BEV CABRALES, NADIA-SAURAV apnea (adult) [facility] (pediatric) R09.02 Hypoxemia Z99.89 Dependence on other enabling machines and devices Office Visit 06/10/2018 10:40a [facility] Thony Conti7.33 Obstructive sleep Elaine Vidales apnea (adult) (pediatric) I48.0 Paroxysmal atrial fibrillation R94.31 Abnormal electrocardiogram [ECG] [EKG] R06.00 Dyspnea, unspecified J84.10 Pulmonary fibrosis, unspecified I48.4 Atypical atrial flutter Office Visit 10/29/2017 3:40p [facility] Thony Conti7.33 Obstructive sleep Of Leroy Vidales M.D. 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) Office Visit 03/20/2017 3:40p [facility] Thony Conti7.33 Obstructive sleep Elaine Vidales apnea (adult) (pediatric) R09.02 Hypoxemia I48.0 Paroxysmal atrial fibrillation I49.5 Sick sinus syndrome R94.31 Abnormal electrocardiogram [ECG] [EKG] Office Visit 11/29/2016 [facility] Reina G47.33 Obstructive sleep 2:00p [facility] SAMRA Dietrich RN, apnea (adult) [facility] (pediatric) R09.02 Hypoxemia Office Visit 10/23/2016 11:00a [facility] Emiliana G47.33 Obstructive sleep [facility] MD Atul apnea (adult) [facility] (pediatric) I49.9 Cardiac arrhythmia, unspecified Office Visit 08/25/2016 9:00a [facility] Thony F. I48.0 Paroxysmal atrial Mauser, M.D. fibrillation R00.1 Bradycardia, unspecified G47.33 Obstructive sleep apnea (adult) (pediatric) Office Visit 06/13/2016 2:00p [facility] Thony F. I48.0 Paroxysmal atrial Mauser, M.D. fibrillation I10 Essential (primary) hypertension M79.602 Pain in left arm G47.9 Sleep disorder, unspecified R00.1 Bradycardia, unspecified Office Visit 05/23/2016 [facility] I48.91 Unspecified 2:43p Assoc,florin Bustillos NP atrial Hospitalists fibrillation Plan of Treatment Future Appointment(s):07/08/2018 2:00 pm - Yen Kaba NP at [facility]06/16/2019 11:15 am - Reina Dietrich DNP, RN, GRAVITY METER OBSERVER-BC at [facility]06/14/2018 - Reina Dietrich DNP, RN, [facility]- BCG47.33 Obstructive sleep apnea (adult) (pediatric)Follow up:1 [...] and surgery discussed. Dr Zeke DDS in [place] takes Medicare for the appliance, you may want to consult with him to see if adjustments needed to improve overall treatment.R09.02 HypoxemiaNew Orders:Pulse Oximetry Overnight, Ordered: 06/14/18Recommendations: Due to recent problems with A. Flutter. Pulse oximery to assure oral appliance is helping. You may need new device.Z99.89 Dependence on other enabling machines and devices
[2018-07-18 05:01] LABS: ABS Basophils 0 10^3/ul (0-0.2); ABS Eosinophils 0.3 10^3/ul (0-0.6); ABS Lymphocytes 0.7 10^3/ul (1.0-4.8); ABS Monocytes 0.6 10^3/ul (0-0.8); ABS Neutrophils 6.5 10^3/ul (1.5-7.7); ABS Nucleated RBC 0 10^3/ul; Eosinophil % 3.5 %; Hematocrit 38 % (42-52); Hemoglobin 12.9 g/dl (14.0-18.0); Lymphocyte % 8.3 %; Mean Corpuscular HGB Conc 34 g/dl (31-36); Mean Corpuscular Hemoglobin 33 pg (27-31); Mean Corpuscular Volume 98 fL (80-94); Mean Platelet Volume 7.2 fL (7.4-10.4); Nucleated Red Blood Cells % 0.1; Platelet Count 260 10^3/ul (150-450); Red Cell Distribution Width 12 % (10.5-15)
[2018-07-18 05:08] LABS: Activated Partial Thrombo Time 24.8 seconds (26.0-36.3); INR 1.22 (0.77-1.02)
[2018-07-18 05:17] LABS: Albumin 3.2 g/dL (3.2-5.2); Albumin/Globulin Ratio 0.8 (1-3); BUN/Creatinine Ratio 16.9 (8-20); C Reactive Protein 113.66 mg/L (<8.01); Calcium 9.2 mg/dL (8.6-10.3); EGFR African American 107.6 (>60); EGFR Non-African American 88.9 (>60); Potassium 3.9 mmol/L (3.5-5.0); Total Bilirubin 0.9 mg/dL (0.2-1.0); Total Protein 7.2 g/dL (6.4-8.9)
[2018-07-18 05:19] LABS: Troponin I 0.01 ng/mL (<0.04)
[2018-07-18] MEDS ORDERED: Iohexol 350* (CONTRAST) 500 ML MDV IV ONE (05:19)
[2018-07-18 05:27] LABS: Influenza A Molecular NEGATIVE (Negative); Influenza B Molecular NEGATIVE (Negative)
[2018-07-18] MEDS ORDERED: Furosemide IV* 10 MG/ML VIAL (40 MG) IV SLOW PU ONE (06:31)
[2018-07-18] MEDS ORDERED: Famotidine TAB* 20 MG PO PRN (07:06)
[2018-07-18 08:07] LABS: Magnesium 1.8 mg/dL (1.9-2.7)
[2018-07-18] MEDS: cefTRIAXone(*) 1 GM in NS 0.9% 50 ML* 50 ML IVPB SCH (10:59)
[2018-07-18] MEDS: Dofetilide CAP* 250 MCG PO SCH ×2 (11:02→20:17)
[2018-07-18] MEDS: Cholecalciferol TAB* 400 UNIT PO SCH ×2 (11:02→11:10)
[2018-07-18] MEDS: DOXYcycline CAP(*) 100 MG PO SCH ×2 (11:03→20:17)
[2018-07-18] MEDS: Cyanocobalamin TAB* 500 MCG PO SCH (11:03)
[2018-07-18] MEDS: predniSONE TAB* 20 MG PO SCH (11:03)
[2018-07-18] MEDS: Apixaban* 5 MG TAB PO SCH ×2 (11:03→20:17)
[2018-07-18] MEDS: MULTIVITAMINS AREDS2 PO SCH ×3 (11:04→20:15)
[2018-07-18] MEDS: MINS PO SCH ×3 (11:04→20:15)
[2018-07-18] MEDS: PIRFENIDONE 801 MG PO SCH ×2 (12:01→17:24)
--- NOTE | 2018-07-18 12:04 | HP ---
HISTORY AND PHYSICAL: DATE OF ADMISSION: 07/18/18 ADMITTING PROVIDER: Lico Boateng MD. PRIMARY CARE PROVIDER: Dr. Valentina Pritchard. OUTPATIENT PLASTICS TECHNICIAN: Dr. Vidales. OUTPATIENT TEENAGE BABYSITTER: Dr. Basil Lozano, [facility] OUTPATIENT GARMENT MANUFACTURING SUPERVISOR: Dr. Aashish Boogie, [facility] LOCAL SLEEP DOCTOR/TEENAGE BABYSITTER: Dr. Pollard. CHIEF COMPLAINT: Shortness of breath, dyspnea on exertion. HISTORY OF PRESENT ILLNESS: Karl Portillo is an 83-year-old male with past medical history of pulmonary fibrosis, on pirfenidone (since January 2018), paroxysmal atrial flutter status post 2 recent cardioversions and Tikosyn load, systolic congestive heart failure thought possibly tachyarrhythmia related with latest EF 40% to 45% and grade 3 diastolic dysfunction, [id number]-[id number] pulmonary hypertension, obstructive sleep apnea, prostate cancer status post prostatectomy. He was admitted 06/17/18 to 06/22/18 for recurrent aflutter, got cardioverted for the second time in a week and then Tikosyn loaded and referred to Dr. Boogie. He followed up on recent days with him as well as Dr. Basil Lozano, his station operator; and 2 days ago, a CT of the chest was performed without contrast and Dr. Lozano thought he had worsening inflammation and prescribed 40 mg of prednisone which he is yet to start. He had been walking around up to 2 miles a day in [facility], but would get very winded with any inclined ambulation. Two nights ago, his felt like he was subjectively feverish and he has noted some sweating. Temperature was not checked. They returned on the late [employer] bus and he woke up in the middle of the night feeling like he was drowning and could not catch his breath. EMS was called and he was reportedly per the records sating at 70% on room air. Per ED nurse report, initial room O2 sats were in the 80s. He was placed on 15 L and brought to the emergency room. His temperature was recorded at 100.8 and a chest x-ray showed concern for worsening infiltrates on the right, so Levaquin 750 mg dosing was given. He had no leukocytosis. A CT chest angiogram was performed, which has resulted in no pulmonary embolism and the patient was referred to hospitalist service for acute hypoxic respiratory failure. Other CT findings include extensive ground glass airspace opacities in the bilateral lung field, which may represent fluid overload versus infectious process along with chronic fibrotic changes with peripheral honeycombing, traction bronchiectasis. His BNP has returned 255 less than 760 of 06/17/18 and he was given 40 mg IV Lasix in the emergency room. He actually thinks he is sleeping better while flat that he had been before. He does do some coughing and chronic nasal drainage especially worse since the Esbriet was started in January 2018. He denies any atrial flutter or fibrillation and was delivered a 30-day event monitor to his doorstep that has not been set up yet. His ABG shows pH 7.44, PCO2 of 35, PO2 of 100. PAST MEDICAL HISTORY: 1. Interstitial lung disease/idiopathic pulmonary fibrosis. This has never been biopsied, but apparently negative blood work testing from Dr. Lozano. 2. Proximal atrial flutter status post 2 recent cardioversions and Tikosyn loading. 3. Systolic congestive heart failure with ejection fraction of 40% to 45% and grade 3 diastolic dysfunction. 4. Ptzr-gu-aaajswlp pulmonary hypertension. 5. Prostate cancer status post prostatectomy. 6. Obstructive sleep apnea, not on CPAP. 7. Seizure disorder as a child. 8. Generalized osteoarthritis. 9. Basal carcinoma. PAST SURGICAL HISTORY: 1. Tonsillectomy. 2. Adenoidectomy. 3. Prostatectomy. 4. Cataract surgery. MEDICATIONS: Include: 1. Eliquis 5 mg twice a day. 2. Esbriet 801 mg 3 times a day with meals. 3. Metoprolol tartrate 12.5 mg only to be taken as needed for aflutter with rapid ventricular response. 4. Latanoprost 0.005% eye drops to both eyes once daily. 5. Ciclopirox 8% solution applied to toenails once daily. 6. B12 1000 mcg daily. 7. Centrum silver daily. 8. AREDS twice a day. 9. Tylenol 500 mg twice a day p.r.n. 10. Pepcid p.r.n. at night. 11. Caltrate once daily. FAMILY HISTORY: His mother at age 97 of congestive heart failure. Father of melanoma at age 90, also had Parkinson disease. SOCIAL HISTORY: The patient is a former smoker 8 years 1-pack per day and ceasing in 1963. He has been abstinent from alcohol or caffeine for the last 3 weeks given Cardiology recommendations. 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 His medical surrogate is his , Sakshi Portillo. He desires to be a full code for now, but is giving serious thought to possibly changing that answer given his pulmonary set backs recently. REVIEW OF SYSTEMS: A complete 14-point review of systems is negative, except as per HPI. He denies any abdominal pain, nausea, vomiting, diarrhea or constipation, headaches, skin lesions, sick contacts, swelling in his feet, palpitations or chest pressure. PHYSICAL EXAMINATION GENERAL APPEARANCE: No acute distress, smiling in the hospital bed. VITAL SIGNS: Temperature 100.8; heart rate mid 60s; respiratory rate between initially 30; sating 95% on 2 L in the field, he was reportedly 70% on room air ; blood pressure 136/67. HEENT: Normocephalic, atraumatic. Pupils equally round and reactive to light. Extraocular motions intact. No scleral icterus. Moist mucous membranes. NECK: Supple. No cervical lymphadenopathy. LUNGS: With prominent Velcro crackles, especially prominent in bilateral mid to lower lung charlton bilaterally getting worse as they descend. No rhonchi or wheezing. CARDIOVASCULAR: Regular rate, tachycardic. No murmurs, rubs, or gallops. ABDOMEN: Soft, nontender, nondistended. EXTREMITIES: Warm and well perfused. No peripheral edema. NEUROLOGIC: Moving all extremities. Cranial nerves II through XII grossly intact. SKIN: No lesions or rashes. DIAGNOSTIC STUDIES/LAB DATA: White count 8.0, hemoglobin 12.9, hematocrit 38, platelets 260. INR 1.22. ABG: The pH is 7.44, PCO2 35, PO2 100, bicarb 25. Sodium 129, potassium 3.9, chloride 96, carbon dioxide 24, BUN 14, creatinine 0.83, glucose 100, lactic acid 1.1, calcium 9.2, total bili is 0.9, AST 28, ALT 16, alk phos 74, troponin 0.01, CRP 113.6, BNP 255, albumin 3.2. Influenza A and B negative. Imaging: CT angio chest, impression: 1. There are extensive ground glass airspace opacities noted in the bilateral lung charlton. Findings may represent fluid overload versus infectious process. 2. There are chronic fibrotic changes noted in the bilateral lungs. In the lung bases, there is peripheral honeycombing noted. There is traction bronchiectasis noted. Findings are compatible with the chronic interstitial lung disease. There is adequate opacification noted of the pulmonary vasculature. There is no evidence of pulmonary embolus. There are borderline enlarged mediastinal lymph nodes noted measuring up to 1.7 cm. Chest x-ray, official read pending. Findings of chronic interstitial lung disease with interval worsening and can exclude worse infiltrates particularly on the right base, really bilaterally. EKG, normal sinus rhythm, PAC, heart rate 70, T-wave inversion in III, poor R- wave progression, left axis deviation. No ST elevations or depressions. QTc is 453. ASSESSMENT AND PLAN: 1. Karl Portillo is an 83-year-old male with idiopathic pulmonary fibrosis/ interstitial lung disease for the last 6 years, on pirfenidone last 6 months and recent recommendation from outpatient contract programmer, Dr. Basil Lozano, to start 40 mg steroids daily for a suspected worsening "inflammation" found on CT (per the patient report); paroxysmal atrial flutter, more recently controlled on Tikosyn; and some combined systolic and diastolic congestive heart failure with the ejection fraction 40% to 45% presenting with acute hypoxic respiratory failure with reported sats of 70% on room air and the field, accompanied by fever of 100.8 and a cough, elevated CRP of 113 and improved BNP of 255, status post Levaquin in the ED, but we will transition to ceftriaxone given his Tikosyn and risk of QTc interactions on that medication. I am going to start his prednisone 40mg daily which he was recommended 2 days ago, has not started yet. I will place a consult to Dr. Pollard for further pulmonology recommendations and I will request records from Dr. Basil Lozano to see what blood work testing has been done to determine or rule out different causes of pulmonary fibrosis/interstitial lung disease. The patient reports they have all been negative. He has never done a lung biopsy. Dr. Lozano thought it would rather invasive during discussions in the past. We will continue his pirfenidone as well. I am also adding on procalcitonin and sputum culture. We will follow up blood cultures. 2. Paroxysmal atrial flutter, we will continue his Tikosyn, keep his electrolytes and potassium above 4, magnesium above 2, continue his Eliquis 5 mg p.o. daily, CHADS-VASc include age and congestive heart failure for CHADS- VASc of 3. Continue on telemetry. 3. 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 His BMP has improved since 06/17/18. He does not have a lower extremity edema. It is difficult to exclude via their auscultation or imaging studies any contribution of fluid in the lung charlton. He is status post 40 mg of IV Lasix in the ED. We will get daily weights. Strict I's and O's and get p.r.n. diuretics as clinical course develops, but no standing dose at this time. He had a recent echocardiogram on 06/13/18 and I do not think that is indicated at this juncture to be repeated. His outpatient contract programmer of note is Dr. Vidales. 4. DVT prophylaxis. He is already on Eliquis. 5. Nutrition. He continues the heart healthy diet. No caffeine. Obviously no alcohol. 6. He is a full code currently but may reevaluate that. His medical surrogate is his , Sakshi Portillo. [id number]/CPS #: [id number] CHRISTOFER
[2018-07-18] MEDS: Latanoprost 0.005%* 2.5 ml BTL BOTH EYES SCH (17:24)
[2018-07-18] MEDS ORDERED: Magnesium Sulfate 2 GM IV* 2 GM/50 ML BAG IVPB ONE (19:47)
[2018-07-19 08:33] LABS: ABS Basophils 0 10^3/ul (0-0.2); ABS Eosinophils 0.2 10^3/ul (0-0.6); ABS Lymphocytes 0.9 10^3/ul (1.0-4.8); ABS Monocytes 0.7 10^3/ul (0-0.8); ABS Neutrophils 7.8 10^3/ul (1.5-7.7); ABS Nucleated RBC 0 10^3/ul; Eosinophil % 1.6 %; Hematocrit 37 % (42-52); Hemoglobin 12.8 g/dl (14.0-18.0); Lymphocyte % 9.1 %; Mean Corpuscular HGB Conc 34 g/dl (31-36); Mean Corpuscular Hemoglobin 33 pg (27-31); Mean Corpuscular Volume 97 fL (80-94); Mean Platelet Volume 7.5 fL (7.4-10.4); Nucleated Red Blood Cells % 0; Platelet Count 268 10^3/ul (150-450); Red Blood Count 3.85 10^6/ul (4.00-5.40); Red Cell Distribution Width 12 % (10.5-15); White Blood Count 9.6 10^3/ul (3.5-10.8)
[2018-07-19] MEDS: Dofetilide CAP* 250 MCG PO SCH ×2 (08:46→20:37)
[2018-07-19] MEDS: Apixaban* 5 MG TAB PO SCH ×2 (08:47→20:37)
[2018-07-19] MEDS: PIRFENIDONE 801 MG PO SCH ×3 (08:47→17:32)
[2018-07-19] MEDS: predniSONE TAB* 20 MG PO SCH (08:47)
[2018-07-19] MEDS: DOXYcycline CAP(*) 100 MG PO SCH ×2 (08:47→20:37)
[2018-07-19] MEDS: Cyanocobalamin TAB* 500 MCG PO SCH (08:47)
[2018-07-19] MEDS: Cholecalciferol TAB* 400 UNIT PO SCH (08:47)
[2018-07-19 08:48] LABS: Calcium 9.6 mg/dL (8.6-10.3); EGFR African American 99.3 (>60); Potassium 3.6 mmol/L (3.5-5.0)
[2018-07-19] MEDS ORDERED: Potassium Chlor TAB* 20 MEQ TAB.ER PO ONE (08:53)
[2018-07-19] MEDS: MULTIVITAMINS AREDS2 PO SCH ×2 (08:59→20:38)
[2018-07-19] MEDS: MINS PO SCH ×2 (08:59→20:38)
--- NOTE | 2018-07-19 08:59 | PN ---
Subjective Date of Service: 07/19/18 Interval History: This morning having cough- blood tinged, currently on nasal canula, gets short of breath easily. No chest pain, no palpitations.. Objective Active Medications: Apixaban (Eliquis*) 5 mg PO BID [facility] Last Admin: 07/19/18 08:47 Dose: 5 mg Cholecalciferol (Vitamin D Tab*) 800 unit PO DAILY [facility] Last Admin: 07/19/18 08:47 Dose: 800 unit Cyanocobalamin (Vitamin B12 Tab*) 1,000 mcg PO DAILY [facility] Last Admin: 07/19/18 08:47 Dose: 1,000 mcg Dofetilide (Tikosyn Cap*) 250 mcg PO BID [facility] Last Admin: 07/19/18 08:46 Dose: 250 mcg Doxycycline Hyclate (Vibramycin Cap(*)) 100 mg PO BID [facility] Last Admin: 07/19/18 08:47 Dose: 100 mg Famotidine (Pepcid Tab*) 20 mg PO DAILY PRN PRN Reason: INDIGESTION Ceftriaxone Sodium 1 gm/ (Sodium Chloride) 50 mls @ 200 mls/hr IVPB Q24H [facility] Last Admin: 07/18/18 10:59 Dose: 200 mls/hr Latanoprost (Xalatan 0.005%*) 1 drop BOTH EYES QPM [facility] Last Admin: 07/18/18 17:24 Dose: 1 drop Multivitamins/Minerals (Preservision Areds 2) 1 cap PO BID [facility] Last Admin: 07/18/18 20:15 Dose: Not Given Pto - (Pirfenidone [ (Esbriet] 801 Mg)) 801 mg PO TID WITH MEALS [facility] Last Admin: 07/19/18 08:47 Dose: 801 mg Potassium Chloride (Klor Con Er Tab*) 40 meq PO UC ONCE ONE Stop: 07/19/18 08:54 Prednisone (Deltasone Tab*) 40 mg PO DAILY [facility] Last Admin: 07/19/18 08:47 Dose: 40 mg Vital Signs - 8 hr 07/19/18 07/19/18 02:59 07:29 Temperature 98.1 F 97.8 F Pulse Rate 58 62 Respiratory 20 22 Rate Blood Pressure 115/59 109/51 (mmHg) O2 Sat by Pulse 93 93 Oximetry Oxygen Devices in Use Now: Nasal Cannula Appearance: Elderly male sitting on bed, not in acute distress, able to speak sentences but has to pause for breathing. Respiratory: - - diminished breath sounds with dry crackles. Cardiovascular: RRR, No Edema Neurological: Alert and Oriented x 3 Result Diagrams: 07/19/18 07:55 07/19/18 07:55 Microbiology and Other Data: Microbiology 07/18/18 20:26 Gram Stain - Final Sputum Expectorated 07/18/18 04:48 Aerobic Blood Culture - Preliminary Blood Venous No Growth Day 1 Anaerobic Blood Culture - Preliminary No Growth Day 1 07/18/18 04:48 Aerobic Blood Culture - Preliminary Blood Venous No Growth Day 1 Anaerobic Blood Culture - Preliminary No Growth Day 1 07/18/18 04:55 Influenza Types A,B Antigen - Final Nasal Specimen received for Influenza A/B Molecular testing Assess/Plan/Problems-Billing Assessment: 83 year old Male with history of pulmonary fibrosis, atrial fibrillation here with fever, cough. - Patient Problems (1) Pneumonia Current Visit: Yes Status: Acute Code(s): J18.9 - PNEUMONIA, UNSPECIFIED ORGANISM SNOMED Code(s): 204172544 Comment: Rocephin and doxycyline cultures no growth so far. (2) A-fib Current Visit: No Status: Acute Code(s): I48.91 - UNSPECIFIED ATRIAL FIBRILLATION SNOMED Code(s): 00008427 Comment: continue eliquis. on tiosyn. monitor K, and Mg. (3) DVT prophylaxis Current Visit: No Status: Acute Code(s): FOR5288 - SNOMED Code(s): 720134230 Comment: - Apixaban. (4) Pulmonary fibrosis Current Visit: No Status: Chronic Code(s): J84.10 - PULMONARY FIBROSIS, UNSPECIFIED SNOMED Code(s): 85746674 Comment: Continue prednisone 40mg supplemental O2 on prifenidone follow up on pulmonary recommendations.
[2018-07-19] MEDS: cefTRIAXone(*) 1 GM in NS 0.9% 50 ML* 50 ML IVPB SCH (10:18)
--- NOTE | 2018-07-19 14:34 | CONS ---
PULMONARY CONSULTATION REPORT: DATE OF CONSULT: 07/19/18 CONSULTATION REQUESTED BY: Dr. Venegas. REASON FOR CONSULT: Evaluation of abnormal CT chest. HISTORY OF PRESENT ILLNESS: The patient is an 83-year-old male with a history of pulmonary fibrosis, recently started on pirfenidone in October 2017, paroxysmal atrial flutter, status post cardioversion and Tikosyn started in June, systolic heart failure possibly secondary to tachyarrhythmia with EF of 40% to 45%, diastolic dysfunction, [id number] pulmonary hypertension, obstructive sleep apnea diagnosed recently, not started on therapy yet. The patient is known to me from prior outpatient evaluation for sleep apnea. He has prior h/o pulmonary fibrosis, dx 6-7 yrs ago. The patient presents for evaluation of worsening shortness of breath and dyspnea on exertion. The patient had appointment with EP physician at [place] in [facility] last week. The patient was not feeling well around that time. He had low-grade fevers as per his . The patient had a 6-minute walk test at land acquisition specialist office during which time he became significantly short of breath, heart rate increased significantly. He had appointment with his ultrasonic cleaner on the same day in the afternoon and he presented to the ultrasonic cleaner with significant dyspnea. A CT scan of the chest was obtained, which as per the patient showed worsening of the pulmonary fibrosis. He has a known history of pulmonary fibrosis which was attributed to prior exposure to chlorine and other chemicals involved when he was swimming. He had workup for possible inflammatory diseases and connective tissue disease, which was all negative. He has been following with the ultrasonic cleaner since a long time. His shortness of breath started to gradually worsen over the past few months. When he followed up with his ultrasonic cleaner in [facility] in October, a followup CT at that time showed worsening of the pulmonary fibrosis. Given the significant change in comparison to the stable disease until that time, he was initiated on medication for treatment of pulmonary fibrosis which he has been taking since January 2018. He had issues with new-onset atrial flutter/fibrillation in June during which he was hospitalized and had required cardioversion 2 times in a week and then was subsequently started on Tikosyn and was given appointment to follow up with the cotton washer in [facility]. He has not had any issues in the past and has not been on any long- term medications for this condition. The patient was prescribed prednisone by ultrasonic cleaner and was allowed to go home and no admission was suggested. The patient woke up with inability to breathe in the middle of night. When EMS arrived, they found his O2 sats to be around 70% on room air. As per ED triage, his sats were noted to be around 80s. He was placed on 15 L O2. Temperature was around 100.8 at that time. He received Levaquin 750 mg. Patient also reports significant wt loss of 20 pounds in the past 2 months. He also reports dark stools intermittently and dark urine for 1 day. He attributes dark urine to Pirfenidone. A CTA of the chest was obtained to evaluate for pulmonary embolism. I personally reviewed CT of the chest - evidence of significant fibrotic changes noted bilaterally with significant progression in comparison to a prior CT from 2016. The patient also with evidence of ground-glass opacities in lung [place] bilaterally. Borderline mediastinal nodes are also noted. No suspicious nodules or masses were noted. The patient was initiated on prednisone 40 mg, was also started on doxycycline. He received Lasix 40 mg in the emergency room. He has been requiring O2 supplementation at 2 L per minute. Arterial blood gas did not reveal significant hypoxemia; however, he has been on 28% oxygen with pO2 of 100. PAST MEDICAL HISTORY: 1. Interstitial lung disease consistent with pulmonary fibrosis with significant progression in the past few months. 2. Paroxysmal atrial flutter, status post cardioversion and Tikosyn. 3. Systolic heart failure. 4. Uktc-df-yiquhbal pulmonary hypertension. 5. Prostate cancer, status post prostatectomy. 6. Obstructive sleep apnea, not initiated on treatment yet. 7. Seizure disorder as a child. 8. Generalized osteoarthritis. 9. Basal cell carcinoma. PAST SURGICAL HISTORY: Tonsillectomy, adenoidectomy, prostatectomy, cataract surgery. MEDICATIONS: 1. Eliquis. 2. Esbriet. 3. Metoprolol. 4. Latanoprost. 5. Ciclopirox. 6. B12. 7. Centrum. 8. AREDS. 9. Tylenol. 10. Pepcid. 11. Caltrate. FAMILY HISTORY: Mother of congestive heart failure. Father with melanoma at age 90 and also had Parkinson disease. SOCIAL HISTORY: Former smoker, smoked for 8 years 1 pack per day, stopped in 1963. Has been abstinent from wine and caffeine recently since atrial fibrillation. 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 REVIEW OF SYSTEMS: All 14 systems reviewed and as per HPI. PHYSICAL EXAM: The patient in bed, in no apparent distress. Vital Signs: Temperature 97.8, pulse 62 beats per minute, respiratory rate 20 per minute, blood pressure 109/51. HEENT: Pupils equal, reactive to light. Mucous membranes moist. Lungs: Crackles at bases bilaterally. Cardiovascular: S1, S2 present, regular. Abdomen: Soft, nontender, nondistended. Bowel sounds present. Extremities: Normal range of motion. No edema. Skin: No rashes or bruises. DIAGNOSTIC STUDIES/LAB DATA: WBC count 9.6, hemoglobin 12.8, hematocrit 37, platelet count 268. Sodium 130, potassium 3.6, chloride 96, bicarb 27, BUN 16, creatinine 0.89. BNP 255. CRP 113. Magnesium 1.8. CT of the chest as described above in HPI. IMPRESSION AND RECOMMENDATIONS: 83-year-old male with recent onset of atrial fibrillation, atrial flutter, being monitored for pulmonary fibrosis of unclear etiology, attributed to idiopathic pulmonary fibrosis with recent worsening, admitted with worsening shortness of breath, found to in hypoxemic respiratory failure. 1. Worsening shortness of breath, hypoxemic respiratory failure secondary to exacerbation of idiopathic pulmonary fibrosis. 2. Cannot rule out pneumonia. 3. Sleep apnea, patient undergoing evaluation for mandibular device, might be interested in CPAP if needs O2 at night Hypoxemic respiratory failure, improving. Agree with current antibiotics and steroids. Will need to assess O2 requirements. Will need workup for anemia and weight loss. Thank you for allowing me to participate in the care of the patient. Will follow up with you. D/w Dr Venegas [id number]/[facility] #: [id number] MTDD
[2018-07-19 16:14] LABS: Urine Appearance Clear; Urine Bilirubin Negative (Negative); Urine Blood Negative (Negative); Urine Color Yellow; Urine Glucose Negative (Negative); Urine Ketones Negative (Negative); Urine Nitrite Negative (Negative); Urine Protein Negative (Negative); Urine Specific Gravity 1.009 (1.010-1.030); Urine Urobilinogen Negative (Negative)
[2018-07-19] MEDS: Latanoprost 0.005%* 2.5 ml BTL BOTH EYES SCH (17:33)
[2018-07-20] MEDS ORDERED: methylPREDNISolone 125 MG* 2 ML VIAL IV ONE (08:16)
[2018-07-20] MEDS: Cholecalciferol TAB* 400 UNIT PO SCH (08:32)
[2018-07-20] MEDS: Apixaban* 5 MG TAB PO SCH ×2 (08:33→21:03)
[2018-07-20] MEDS: Cyanocobalamin TAB* 500 MCG PO SCH (08:33)
[2018-07-20] MEDS: DOXYcycline CAP(*) 100 MG PO SCH ×2 (08:33→21:03)
[2018-07-20 08:34] LABS: ABS Basophils 0.1 10^3/ul (0-0.2); ABS Eosinophils 0.3 10^3/ul (0-0.6); ABS Lymphocytes 1.3 10^3/ul (1.0-4.8); ABS Monocytes 0.8 10^3/ul (0-0.8); ABS Neutrophils 8.7 10^3/ul (1.5-7.7); ABS Nucleated RBC 0 10^3/ul; Eosinophil % 2.8 %; Hematocrit 41 % (42-52); Hemoglobin 13.8 g/dl (14.0-18.0); Lymphocyte % 11.6 %; Mean Corpuscular HGB Conc 33 g/dl (31-36); Mean Corpuscular Hemoglobin 33 pg (27-31); Mean Corpuscular Volume 99 fL (80-94); Mean Platelet Volume 7.4 fL (7.4-10.4); Nucleated Red Blood Cells % 0; Platelet Count 337 10^3/ul (150-450); Red Blood Count 4.18 10^6/ul (4.00-5.40); Red Cell Distribution Width 13 % (10.5-15); White Blood Count 11.2 10^3/ul (3.5-10.8)
[2018-07-20] MEDS: Dofetilide CAP* 250 MCG PO SCH ×2 (08:34→21:03)
[2018-07-20] MEDS: PIRFENIDONE 801 MG PO SCH ×3 (08:34→17:26)
[2018-07-20] MEDS: MULTIVITAMINS AREDS2 PO SCH ×2 (08:35→21:01)
[2018-07-20] MEDS: MINS PO SCH ×2 (08:35→21:01)
[2018-07-20] MEDS ORDERED: methylPREDNISolone 125 MG* 2 ML VIAL ONE (08:52)
[2018-07-20] MEDS: cefTRIAXone(*) 1 GM in NS 0.9% 50 ML* 50 ML IVPB SCH (08:59)
[2018-07-20 09:08] LABS: BUN/Creatinine Ratio 16.7 (8-20); Calcium 9.8 mg/dL (8.6-10.3); EGFR Non-African American 75.2 (>60); Potassium 3.8 mmol/L (3.5-5.0)
[2018-07-20] MEDS: predniSONE TAB* 20 MG PO SCH (11:33)
--- NOTE | 2018-07-20 12:48 | PN ---
Subjective Date of Service: 07/20/18 Interval History: Patient having hypoxia, pulse ox of 70%, had to be placed on oxygen mask at 9 Liters to keep O2 sat > 90%. Pateint feeling SOB, no chest pain, no palpitations, HR runnin-70. Objective Active Medications: Apixaban (Eliquis*) 5 mg PO BID [facility] Last Admin: 07/19/18 20:37 Dose: 5 mg Cholecalciferol (Vitamin D Tab*) 800 unit PO DAILY [facility] Last Admin: 07/19/18 08:47 Dose: 800 unit Cyanocobalamin (Vitamin B12 Tab*) 1,000 mcg PO DAILY [facility] Last Admin: 07/19/18 08:47 Dose: 1,000 mcg Dofetilide (Tikosyn Cap*) 250 mcg PO BID [facility] Last Admin: 07/19/18 20:37 Dose: 250 mcg Doxycycline Hyclate (Vibramycin Cap(*)) 100 mg PO BID [facility] Last Admin: 07/19/18 20:37 Dose: 100 mg Famotidine (Pepcid Tab*) 20 mg PO DAILY PRN PRN Reason: INDIGESTION Ceftriaxone Sodium 1 gm/ (Sodium Chloride) 50 mls @ 200 mls/hr IVPB Q24H [facility] Last Admin: 07/19/18 10:18 Dose: 200 mls/hr Latanoprost (Xalatan 0.005%*) 1 drop BOTH EYES QPM [facility] Last Admin: 07/19/18 17:33 Dose: 1 drop Multivitamins/Minerals (Preservision Areds 2) 1 cap PO BID [facility] Last Admin: 07/19/18 20:38 Dose: Not Given Pto - (Pirfenidone [ (Esbriet] 801 Mg)) 801 mg PO TID WITH MEALS [facility] Last Admin: 07/19/18 17:32 Dose: 801 mg Prednisone (Deltasone Tab*) 40 mg PO DAILY [facility] Last Admin: 07/19/18 08:47 Dose: 40 mg Vital Signs - 8 hr 07/20/18 03:10 Temperature 99.0 F Pulse Rate 57 Respiratory 24 Rate Blood Pressure 106/51 (mmHg) O2 Sat by Pulse 93 Oximetry Oxygen Devices in Use Now: Simple Face Mask Appearance: Lying in bed, in mild respiratory distress, but speaking in sentences taking few pauses to breath Eyes: PERRLA Respiratory: - - tachypnea, no use of accessory muscles, coarse crackles throughout. Cardiovascular: No Edema, - - Irregularly irregular Neurological: Alert and Oriented x 3 Result Diagrams: 07/19/18 07:55 07/19/18 07:55 Microbiology and Other Data: Microbiology 07/18/18 20:26 Gram Stain - Final Sputum Expectorated 07/18/18 04:48 Aerobic Blood Culture - Preliminary Blood Venous No Growth Day 1 Anaerobic Blood Culture - Preliminary No Growth Day 1 07/18/18 04:48 Aerobic Blood Culture - Preliminary Blood Venous No Growth Day 1 Anaerobic Blood Culture - Preliminary No Growth Day 1 07/18/18 04:55 Influenza Types A,B Antigen - Final Nasal Specimen received for Influenza A/B Molecular testing Assess/Plan/Problems-Billing Assessment: 83 year old Male with history of pulmonary fibrosis, atrial fibrillation here with fever, cough. - Patient Problems (1) Acute respiratory failure with hypoxia Current Visit: Yes Status: Acute Code(s): J96.01 - ACUTE RESPIRATORY FAILURE WITH HYPOXIA SNOMED Code(s): 89625069 Comment: Due to pulmonary fibrosis with exacerbation caused by pneumonia. (2) Pulmonary fibrosis Current Visit: No Status: Chronic Code(s): J84.10 - PULMONARY FIBROSIS, UNSPECIFIED SNOMED Code(s): 43609971 Comment: becoming hypoxic on nasal canula exam is worse today, change prednisone to solu-medrol 40mg Q 8hrs and will give 125mg IV solu-medrol now. continue oxygen mask, discussed with nurse and patient if oxygenation does not improve will need to consider high flow oxygen -vapotherm, which we can do in the ICU. for now will monitor. (3) Pneumonia Current Visit: Yes Status: Acute Code(s): J18.9 - PNEUMONIA, UNSPECIFIED ORGANISM SNOMED Code(s): 467359075 Comment: Rocephin and doxycyline cultures no growth so far. urine legionella antigen is negative. influenza is negative (4) A-fib Current Visit: No Status: Acute Code(s): I48.91 - UNSPECIFIED ATRIAL FIBRILLATION SNOMED Code(s): 88393066 Comment: continue eliquis. on tiosyn. monitor K, and Mg. (5) DVT prophylaxis Current Visit: No Status: Acute Code(s): OJH9814 - SNOMED Code(s): 231922323 Comment: - Apixaban.
--- NOTE | 2018-07-20 13:09 | PN ---
Progress Note - Progress Note Date of Service: 07/20/18 - Pulm consult f/u note Note: Pt seen and examined at bedside. Overnight events noted. Pt had episode of atypical chest pain that lasted 2 min,resolved last night. Was found to be tachypneic and hypoxic after returning from rest room this am. He was placed on oxymask and prednisone was changed to Solumedrol Reports feeling better this am, does get winded with exertion. Active Medications Generic Name Dose Route Start Last Admin Trade Name Freq PRN Reason Stop Dose Admin Apixaban 5 mg 07/18/18 09:00 07/20/18 08:33 Eliquis* PO 5 mg BID BIN Administration Cholecalciferol 800 unit 07/18/18 08:00 07/20/18 08:32 Vitamin D Tab* PO 800 unit DAILY BIN Administration Cyanocobalamin 1,000 mcg 07/18/18 09:00 07/20/18 08:33 Vitamin B12 Tab* PO 1,000 mcg DAILY BIN Administration Dofetilide 250 mcg 07/18/18 09:00 07/20/18 08:34 Tikosyn Cap* PO 250 mcg BID BIN Administration Doxycycline Hyclate 100 mg 07/18/18 09:00 07/20/18 08:33 Vibramycin Cap(*) PO 100 mg BID BIN Administration Famotidine 20 mg 07/18/18 07:06 Pepcid Tab* PO DAILY PRN INDIGESTION Ceftriaxone Sodium 1 gm/ 50 mls @ 200 mls/hr 07/18/18 10:00 07/20/18 08:59 Sodium Chloride IVPB 200 mls/hr Q24H BIN Administration Latanoprost 1 drop 07/18/18 18:00 07/19/18 17:33 Xalatan 0.005%* BOTH EYES 1 drop QPM BIN Administration Multivitamins/Minerals 1 cap 07/18/18 09:00 07/20/18 08:35 Preservision Areds 2 PO Not Given BID BIN Pto - (Pirfenidone [ 801 mg 07/18/18 12:00 07/20/18 12:32 Esbriet] 801 Mg) PO 801 mg TID WITH MEALS BIN Administration Prednisone 40 mg 07/18/18 09:00 07/20/18 11:33 Deltasone Tab* PO Not Given DAILY BIN Vital Signs Temp Pulse Resp BP Pulse Ox 97.4 F 62 18 118/60 98 07/20/18 11:23 07/20/18 11:23 07/20/18 11:23 07/20/18 11:23 07/20/18 11:23 O/E: Pt in NAD, sitting up in chair, family at bedside HEENT: PERRLA, No JVD Lungs: Crackles at bases b/l, posteriorly CVS: S1, S2+, regular Abd: Soft, BS+ Ext: Normal ROM Skin: No rash Neuro: Alert, awake, no focal deficits Laboratory Results - last 24 hr 07/18/18 07/19/18 07/20/18 10:10 15:20 07:51 WBC 11.2 H RBC 4.18 Hgb 13.8 L Hct 41 L MCV 99 H MCH 33 H MCHC 33 RDW 13 Plt Count 337 MPV 7.4 Neut % (Auto) 78.1 Lymph % (Auto) 11.6 Finney % (Auto) 6.9 Eos % (Auto) 2.8 Baso % (Auto) 0.6 Absolute Neuts (auto) 8.7 H Absolute Lymphs (auto) 1.3 Absolute Monos (auto) 0.8 Absolute Eos (auto) 0.3 Absolute Basos (auto) 0.1 Absolute Nucleated RBC 0 Nucleated RBC % 0 Sodium Potassium Chloride Carbon Dioxide Anion Gap BUN Creatinine Est GFR ( Amer) Est GFR (Non-Af Amer) BUN/Creatinine Ratio Glucose Calcium Magnesium Procalcitonin 0.11 Urine Color Yellow Urine Appearance Clear Urine pH 7.0 Ur Specific Redford 1.009 L Urine Protein Negative Urine Ketones Negative Urine Blood Negative Urine Nitrate Negative Urine Bilirubin Negative Urine Urobilinogen Negative Ur Leukocyte Esterase Negative Urine Glucose Negative 07/20/18 07:51 WBC RBC Hgb Hct MCV MCH MCHC RDW Plt Count MPV Neut % (Auto) Lymph % (Auto) Finney % (Auto) Eos % (Auto) Baso % (Auto) Absolute Neuts (auto) Absolute Lymphs (auto) Absolute Monos (auto) Absolute Eos (auto) Absolute Basos (auto) Absolute Nucleated RBC Nucleated RBC % Sodium 129 L Potassium 3.8 Chloride 94 L Carbon Dioxide 24 Anion Gap 11 BUN 16 Creatinine 0.96 Est GFR ( Amer) 91.0 Est GFR (Non-Af Amer) 75.2 BUN/Creatinine Ratio 16.7 Glucose 93 Calcium 9.8 Magnesium 2.0 Procalcitonin Urine Color Urine Appearance Urine pH Ur Specific Redford Urine Protein Urine Ketones Urine Blood Urine Nitrate Urine Bilirubin Urine Urobilinogen Ur Leukocyte Esterase Urine Glucose I/R: 83 y o m with h/o Pulm fibrosis with rapid progression recently, was started on Pirfenidone, recent A.fib/flutter a/w worsening SOB, hypoxia Pt with 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
[2018-07-20] MEDS: Albuterol/Ipratropium NEB.SOL* Albuterol 2.5 MG/Ipratropium 0.5 MG 3 ML INH SCH ×2 (15:11→15:20)
[2018-07-20] MEDS ORDERED: Albuterol/Ipratropium NEB.SOL* Albuterol 2.5 MG/Ipratropium 0.5 MG 3 ML INH PRN (15:13)
[2018-07-20] MEDS: methylPREDNISolone SOD 40 MG* 1 ML VIAL IV SCH (17:26)
[2018-07-20] MEDS: Latanoprost 0.005%* 2.5 ml BTL BOTH EYES SCH (18:30)
[2018-07-21] MEDS: methylPREDNISolone SOD 40 MG* 1 ML VIAL IV SCH ×3 (00:29→17:22)
[2018-07-21 06:51] LABS: ABS Basophils 0 10^3/ul (0-0.2); ABS Eosinophils 0 10^3/ul (0-0.6); ABS Lymphocytes 0.6 10^3/ul (1.0-4.8); ABS Monocytes 0.5 10^3/ul (0-0.8); ABS Neutrophils 10.4 10^3/ul (1.5-7.7); ABS Nucleated RBC 0 10^3/ul; Eosinophil % 0 %; Hematocrit 37 % (42-52); Hemoglobin 12.2 g/dl (14.0-18.0); Lymphocyte % 5.2 %; Mean Corpuscular HGB Conc 33 g/dl (31-36); Mean Corpuscular Hemoglobin 32 pg (27-31); Mean Corpuscular Volume 97 fL (80-94); Mean Platelet Volume 7.2 fL (7.4-10.4); Nucleated Red Blood Cells % 0; Platelet Count 277 10^3/ul (150-450); Red Blood Count 3.77 10^6/ul (4.00-5.40); Red Cell Distribution Width 12 % (10.5-15); White Blood Count 11.5 10^3/ul (3.5-10.8)
[2018-07-21 07:01] LABS: BUN/Creatinine Ratio 23.4 (8-20); Calcium 9.2 mg/dL (8.6-10.3); EGFR African American 117.3 (>60); Potassium 4.4 mmol/L (3.5-5.0)
[2018-07-21] MEDS: PIRFENIDONE 801 MG PO SCH ×3 (09:11→17:22)
[2018-07-21] MEDS: Cholecalciferol TAB* 400 UNIT PO SCH (09:12)
[2018-07-21] MEDS: DOXYcycline CAP(*) 100 MG PO SCH ×2 (09:12→20:06)
[2018-07-21] MEDS: Apixaban* 5 MG TAB PO SCH ×2 (09:12→20:06)
[2018-07-21] MEDS: Cyanocobalamin TAB* 500 MCG PO SCH (09:12)
[2018-07-21] MEDS: MULTIVITAMINS AREDS2 PO SCH ×2 (09:13→20:02)
[2018-07-21] MEDS: MINS PO SCH ×2 (09:13→20:02)
[2018-07-21] MEDS: Dofetilide CAP* 250 MCG PO SCH ×2 (09:13→20:07)
--- NOTE | 2018-07-21 10:28 | PN ---
Subjective Date of Service: 07/21/18 Interval History: No overnight events. States his breathing still seems to be improving. Has not gotten up to walk around since his episode yesterday AM when they switched to IV steroids. No CP. Appetite adequate. +productive cough. Weaned down O2 to 2.5L Objective Active Medications: Albuterol/Ipratropium (Duoneb (Albuterol 2.5 Mg/Ipratropium 0.5 Mg)) 1 neb INH [id number] AWAKE PRN PRN Reason: SOB/WHEEZING Apixaban (Eliquis*) 5 mg PO BID [facility] Last Admin: 07/21/18 09:12 Dose: 5 mg Cholecalciferol (Vitamin D Tab*) 800 unit PO DAILY [facility] Last Admin: 07/21/18 09:12 Dose: 800 unit Cyanocobalamin (Vitamin B12 Tab*) 1,000 mcg PO DAILY [facility] Last Admin: 07/21/18 09:12 Dose: 1,000 mcg Dofetilide (Tikosyn Cap*) 250 mcg PO BID [facility] Last Admin: 07/21/18 09:13 Dose: 250 mcg Doxycycline Hyclate (Vibramycin Cap(*)) 100 mg PO BID [facility] Last Admin: 07/21/18 09:12 Dose: 100 mg Famotidine (Pepcid Tab*) 20 mg PO DAILY PRN PRN Reason: INDIGESTION Latanoprost (Xalatan 0.005%*) 1 drop BOTH EYES QPM [facility] Last Admin: 07/20/18 18:30 Dose: 1 drop Methylprednisolone Sodium Succinate (Solu-Medrol 40 Mg) 40 mg IV Q8H [facility] Last Admin: 07/21/18 09:12 Dose: 40 mg Multivitamins/Minerals (Preservision Areds 2) 1 cap PO BID [facility] Last Admin: 07/21/18 09:13 Dose: Not Given Pto - (Pirfenidone [ (Esbriet] 801 Mg)) 801 mg PO TID WITH MEALS [facility] Last Admin: 07/21/18 09:11 Dose: 801 mg Vital Signs - 8 hr 07/21/18 07/21/18 07/21/18 03:39 07:50 08:00 Temperature 97.7 F 97.6 F Pulse Rate 58 54 Respiratory 16 20 20 Rate Blood Pressure 127/64 119/63 (mmHg) O2 Sat by Pulse 96 98 Oximetry Oxygen Devices in Use Now: Nasal Cannula Appearance: NAD Ears/Nose/Mouth/Throat: Mucous Membranes Moist Respiratory: - - rhonchi b/l, poor aeration - no increase in work of breathing Cardiovascular: RRR, - - soft systolic murmur Abdominal: NL Sounds; No Tenderness; No Distention, No Hepatosplenomegaly Extremities: No Edema Neurological: Alert and Oriented x 3, NL Muscle Strength and Tone Result Diagrams: 07/21/18 06:21 07/21/18 06:21 Microbiology and Other Data: Microbiology 07/18/18 20:26 Gram Stain - Final Sputum Expectorated 07/18/18 04:48 Aerobic Blood Culture - Preliminary Blood Venous No Growth Day 1 Anaerobic Blood Culture - Preliminary No Growth Day 1 07/18/18 04:48 Aerobic Blood Culture - Preliminary Blood Venous No Growth Day 1 Anaerobic Blood Culture - Preliminary No Growth Day 1 07/18/18 04:55 Influenza Types A,B Antigen - Final Nasal Specimen received for Influenza A/B Molecular testing Assess/Plan/Problems-Billing Assessment: 83 year old Male with history of pulmonary fibrosis, atrial fibrillation here with fever, cough. - Patient Problems (1) Pulmonary fibrosis Current Visit: No Status: Chronic Code(s): J84.10 - PULMONARY FIBROSIS, UNSPECIFIED SNOMED Code(s): 03970345 Comment: A. Worsened on 07/20 - Clinically improving with IV steroids. Unfortunately appears to be rapid progression of his pulmonary fibrosis. Plan Continue IV steroids - follow up with Dr. Pollard regarding transition to PO. Day 2 of IV steroids Will need to be discharged home [facility] ([facility]) Acute respiratory failure with hypoxia Current Visit: Yes Status: Acute Code(s): J96.01 - ACUTE RESPIRATORY FAILURE WITH HYPOXIA SNOMED Code(s): 15767563 Comment: A. Due to pulmonary fibrosis with exacerbation caused by pneumonia. Was changed to IV steroids on AM of 07/20. Clinically improving Plan Discussed continuing for another day of IV steroids and to follow up with Dr. Pollard recommendations in the morning Continue Doxycycline Will try and ambulate today (3) Pneumonia Current Visit: Yes Status: Acute Code(s): J18.9 - PNEUMONIA, UNSPECIFIED ORGANISM SNOMED Code(s): 933412882 Comment: A/P Continue Doxycycline (4) A-fib Current Visit: No Status: Acute Code(s): I48.91 - UNSPECIFIED ATRIAL FIBRILLATION SNOMED Code(s): 47412083 Comment: Remains in NSR continue eliquis. on tiosyn. monitor K, and Mg. (5) DVT prophylaxis Current Visit: No Status: Acute Code(s): RDT6021 - SNOMED Code(s): 353735560 Comment: - Apixaban. (6) Full code status Current Visit: No Status: Acute Code(s): Z78.9 - OTHER SPECIFIED HEALTH STATUS SNOMED Code(s): 093129015
[2018-07-21] MEDS: Latanoprost 0.005%* 2.5 ml BTL BOTH EYES SCH (17:23)
[2018-07-22] MEDS: methylPREDNISolone SOD 40 MG* 1 ML VIAL IV SCH ×3 (00:53→17:52)
[2018-07-22] MEDS: Dofetilide CAP* 250 MCG PO SCH ×2 (08:10→20:36)
[2018-07-22] MEDS: Cyanocobalamin TAB* 500 MCG PO SCH (08:11)
[2018-07-22] MEDS: Cholecalciferol TAB* 400 UNIT PO SCH (08:11)
[2018-07-22] MEDS: Apixaban* 5 MG TAB PO SCH ×2 (08:11→20:25)
[2018-07-22] MEDS: DOXYcycline CAP(*) 100 MG PO SCH ×2 (08:11→20:25)
[2018-07-22] MEDS: MULTIVITAMINS AREDS2 PO SCH ×2 (08:13→20:35)
[2018-07-22] MEDS: MINS PO SCH ×2 (08:13→20:35)
[2018-07-22] MEDS: PIRFENIDONE 801 MG PO SCH ×3 (08:13→17:52)
--- NOTE | 2018-07-22 17:21 | PN ---
Subjective Date of Service: 07/22/18 Interval History: Patient seen and examined. Remains oxygen dependent with room air desats noted. Denies chest pain. Describes feeling "winded". No fever or chills, no cough. Objective Active Medications: Albuterol/Ipratropium (Duoneb (Albuterol 2.5 Mg/Ipratropium 0.5 Mg)) 1 neb INH [id number] AWAKE PRN PRN Reason: SOB/WHEEZING Apixaban (Eliquis*) 5 mg PO BID [facility] Last Admin: 07/22/18 08:11 Dose: 5 mg Cholecalciferol (Vitamin D Tab*) 800 unit PO DAILY [facility] Last Admin: 07/22/18 08:11 Dose: 800 unit Cyanocobalamin (Vitamin B12 Tab*) 1,000 mcg PO DAILY [facility] Last Admin: 07/22/18 08:11 Dose: 1,000 mcg Dofetilide (Tikosyn Cap*) 250 mcg PO BID [facility] Last Admin: 07/22/18 08:10 Dose: 250 mcg Doxycycline Hyclate (Vibramycin Cap(*)) 100 mg PO BID [facility] Last Admin: 07/22/18 08:11 Dose: 100 mg Famotidine (Pepcid Tab*) 20 mg PO DAILY PRN PRN Reason: INDIGESTION Latanoprost (Xalatan 0.005%*) 1 drop BOTH EYES QPM [facility] Last Admin: 07/21/18 17:23 Dose: 1 drop Methylprednisolone Sodium Succinate (Solu-Medrol 40 Mg) 40 mg IV Q8H [facility] Last Admin: 07/22/18 08:44 Dose: 40 mg Multivitamins/Minerals (Preservision Areds 2) 1 cap PO BID [facility] Last Admin: 07/22/18 08:13 Dose: 1 cap Pto - (Pirfenidone [ (Esbriet] 801 Mg)) 801 mg PO TID WITH MEALS [facility] Last Admin: 07/22/18 12:25 Dose: 801 mg Vital Signs - 8 hr 07/22/18 07/22/18 07/22/18 11:38 12:07 15:21 Temperature 97.3 F 97.4 F Pulse Rate 60 52 Respiratory 20 20 Rate Blood Pressure 125/65 129/67 (mmHg) O2 Sat by Pulse 99 100 Oximetry 07/22/18 17:00 Temperature Pulse Rate Respiratory Rate Blood Pressure (mmHg) O2 Sat by Pulse 94 Oximetry Oxygen Devices in Use Now: Nasal Cannula Appearance: alert, NAD Eyes: No Scleral Icterus, PERRLA Ears/Nose/Mouth/Throat: NL Teeth, Lips, Gums Neck: NL Appearance and Movements; NL JVP, Trachea Midline Respiratory: Symmetrical Chest Expansion and Respiratory Effort, - - low lung volumes with poor air entry, no wheeze or rhonchi Cardiovascular: NL Sounds; No Murmurs; No JVD, RRR, No Edema Abdominal: NL Sounds; No Tenderness; No Distention Extremities: No Edema, No Clubbing, Cyanosis Skin: No Rash or Ulcers Neurological: Alert and Oriented x 3, NL Sensation, NL Gait Nutrition: Taking PO's Result Diagrams: 07/21/18 06:21 07/21/18 06:21 Microbiology and Other Data: Microbiology 07/18/18 20:26 Gram Stain - Final Sputum Expectorated 07/18/18 04:48 Aerobic Blood Culture - Preliminary Blood Venous No Growth Day 1 Anaerobic Blood Culture - Preliminary No Growth Day 1 07/18/18 04:48 Aerobic Blood Culture - Preliminary Blood Venous No Growth Day 1 Anaerobic Blood Culture - Preliminary No Growth Day 1 07/18/18 04:55 Influenza Types A,B Antigen - Final Nasal Specimen received for Influenza A/B Molecular testing Assess/Plan/Problems-Billing Assessment: 83 year old Male with history of pulmonary fibrosis, atrial fibrillation here with fever, cough. - Patient Problems (1) Acute respiratory failure with hypoxia Code(s): J96.01 - ACUTE RESPIRATORY FAILURE WITH HYPOXIA SNOMED Code(s): 28187992 Comment: - 2/2 to pulmonary fibrosis with exacerbation caused by CAP - Consult from Dr. Pollard noted - Taper steroids, continue atbx - Wean O2 as tolerated, although it appears patient will require home O2 - CT concerning for fluid overload and slightly elevated BNP at admission, will get ECHO, may benefit from diuresis (2) Pulmonary fibrosis Code(s): J84.10 - PULMONARY FIBROSIS, UNSPECIFIED SNOMED Code(s): 24845533 Comment: - Rapid progression on CT scan - Continue IV steroids, will transition to PO and taper starting tomorrow - Continue supplemental O2 - Continue Esbriet (3) Pneumonia Code(s): J18.9 - PNEUMONIA, UNSPECIFIED ORGANISM SNOMED Code(s): 411724568 Comment: - Continue Doxycycline (4) A-fib Code(s): I48.91 - UNSPECIFIED ATRIAL FIBRILLATION SNOMED Code(s): 60778251 Comment: - In RSR - Continue tikosyn and eliquis (5) DVT prophylaxis Code(s): RSN5369 - SNOMED Code(s): 638026951 Comment: - On eliquis (6) Full code status Code(s): Z78.9 - OTHER SPECIFIED HEALTH STATUS SNOMED Code(s): 703418083 Status and Disposition: Inpatient, anticipate DC home in 1-2 days.
[2018-07-22] MEDS: Latanoprost 0.005%* 2.5 ml BTL BOTH EYES SCH (17:54)
--- NOTE | 2018-07-22 18:09 | PN ---
Progress Note - Progress Note Date of Service: 07/22/18 - Pulm f/u note Note: Pt seen and examined at bedside. Pt reports feeling SOB with exertion, getting winded and desaturating with walking back from rest room, still requiring 4L O2. Active Medications Generic Name Dose Route Start Last Admin Trade Name Freq PRN Reason Stop Dose Admin Albuterol/Ipratropium 1 neb 07/20/18 15:13 Duoneb (Albuterol 2.5 Mg/Ipratropium 0.5 Mg) INH [id number] AWAKE PRN SOB/WHEEZING Apixaban 5 mg 07/18/18 09:00 07/22/18 08:11 Eliquis* PO 5 mg BID BIN Administration Cholecalciferol 800 unit 07/18/18 08:00 07/22/18 08:11 Vitamin D Tab* PO 800 unit DAILY BIN Administration Cyanocobalamin 1,000 mcg 07/18/18 09:00 07/22/18 08:11 Vitamin B12 Tab* PO 1,000 mcg DAILY BIN Administration Dofetilide 250 mcg 07/18/18 09:00 07/22/18 08:10 Tikosyn Cap* PO 250 mcg BID BIN Administration Doxycycline Hyclate 100 mg 07/18/18 09:00 07/22/18 08:11 Vibramycin Cap(*) PO 100 mg BID BIN Administration Famotidine 20 mg 07/18/18 07:06 Pepcid Tab* PO DAILY PRN INDIGESTION Latanoprost 1 drop 07/18/18 18:00 07/22/18 17:54 Xalatan 0.005%* BOTH EYES 1 drop QPM BIN Administration Methylprednisolone Sodium Succinate 40 mg 07/20/18 17:00 07/22/18 17:52 Solu-Medrol 40 Mg IV 40 mg Q8H BIN Administration Multivitamins/Minerals 1 cap 07/18/18 09:00 07/22/18 08:13 Preservision Areds 2 PO 1 cap BID BIN Administration Pto - (Pirfenidone [ 801 mg 07/18/18 12:00 07/22/18 17:52 Esbriet] 801 Mg) PO 801 mg TID WITH MEALS BIN Administration Vital Signs Temp Pulse Resp BP Pulse Ox 97.4 F 52 20 129/67 94 07/22/18 15:21 07/22/18 15:21 07/22/18 15:21 07/22/18 15:21 07/22/18 17:00 O/E: Pt in NAD HEENT: PERRLA Lungs: Crackles at bases, no wheeze CVS: S1, S2+, regular Abd: Soft, BS+ Ext: No edema Skin: No rash Labs: No new labs I/R: 83 y o m with h/o pulm fibrosis, recent A.flutter/A.fib a/w worsening SOB Acute IPF exacerbation versus PNA versus fluid overload Pt with acute hypoxic resp failure, no PE noted CT chest showed significant pulm fibrosis with drastic change from prior CT from 2016 Still requiring 4L O2 and has been desaturating with activity Is on high dose steroids, day#3 Will change to po and start taper tomorrow Is also on abx Is on Pirfenidone for IPF Will try Lasix tomorrow morning Titrate O2 as tolerated Will add pepcid for GI px while on steroids Pt and son had many questions that were addressed
[2018-07-23] MEDS: methylPREDNISolone SOD 40 MG* 1 ML VIAL IV SCH ×3 (00:49→17:25)
[2018-07-23] MEDS ORDERED: Furosemide IV* 10 MG/ML VIAL (40 MG) IV ONE ×2 (08:33→11:16)
[2018-07-23] MEDS: PIRFENIDONE 801 MG PO SCH ×3 (09:35→17:25)
[2018-07-23] MEDS: MINS PO SCH ×2 (09:35→21:03)
[2018-07-23] MEDS: MULTIVITAMINS AREDS2 PO SCH ×2 (09:35→21:03)
[2018-07-23] MEDS: Dofetilide CAP* 250 MCG PO SCH ×2 (09:36→21:03)
[2018-07-23] MEDS: Apixaban* 5 MG TAB PO SCH ×2 (09:36→21:03)
[2018-07-23] MEDS: Cyanocobalamin TAB* 500 MCG PO SCH (09:36)
[2018-07-23] MEDS: DOXYcycline CAP(*) 100 MG PO SCH ×2 (09:36→21:03)
[2018-07-23] MEDS: Cholecalciferol TAB* 400 UNIT PO SCH (09:36)
[2018-07-23] MEDS: guaiFENesin ER TAB 600 MG PO SCH ×2 (12:33→21:03)
--- NOTE | 2018-07-23 14:05 | PN ---
Progress Note - Progress Note Date of Service: 07/23/18 - Pulm f/u note Note: Pt seen and examined at bedside. Pt still getting significantly dyspneic with exertion and also desaturating to 70`s. Is duane expectorate more mucus. Denies chest pain Active Medications Generic Name Dose Route Start Last Admin Trade Name Freq PRN Reason Stop Dose Admin Albuterol/Ipratropium 1 neb 07/20/18 15:13 Duoneb (Albuterol 2.5 Mg/Ipratropium 0.5 Mg) INH [id number] AWAKE PRN SOB/WHEEZING Apixaban 5 mg 07/18/18 09:00 07/23/18 09:36 Eliquis* PO 5 mg BID BIN Administration Cholecalciferol 800 unit 07/18/18 08:00 07/23/18 09:36 Vitamin D Tab* PO 800 unit DAILY BIN Administration Cyanocobalamin 1,000 mcg 07/18/18 09:00 07/23/18 09:36 Vitamin B12 Tab* PO 1,000 mcg DAILY BIN Administration Dofetilide 250 mcg 07/18/18 09:00 07/23/18 09:36 Tikosyn Cap* PO 250 mcg BID BIN Administration Doxycycline Hyclate 100 mg 07/18/18 09:00 07/23/18 09:36 Vibramycin Cap(*) PO 100 mg BID BIN Administration Famotidine 20 mg 07/18/18 07:06 07/22/18 20:30 Pepcid Tab* PO 20 mg DAILY PRN Administration INDIGESTION Fluticasone Propionate 2 spray 07/23/18 12:00 Flonase Nasal [place] 50mcg* BOTH NARES DAILY BIN Guaifenesin 600 mg 07/23/18 12:00 07/23/18 12:33 Mucinex* PO 600 mg BID BIN Administration Latanoprost 1 drop 07/18/18 18:00 07/22/18 17:54 Xalatan 0.005%* BOTH EYES 1 drop QPM BIN Administration Methylprednisolone Sodium Succinate 40 mg 07/20/18 17:00 07/23/18 09:38 Solu-Medrol 40 Mg IV 40 mg Q8H BIN Administration Multivitamins/Minerals 1 cap 07/18/18 09:00 07/23/18 09:35 Preservision Areds 2 PO 1 cap BID BIN Administration Pto - (Pirfenidone [ 801 mg 07/18/18 12:00 07/23/18 12:33 Esbriet] 801 Mg) PO 801 mg TID WITH MEALS BIN Administration Active Medications Generic Name Dose Route Start Last Admin Trade Name Judsonq PRN Reason Stop Dose Admin Albuterol/Ipratropium 1 neb 07/20/18 15:13 Duoneb (Albuterol 2.5 Mg/Ipratropium 0.5 Mg) INH [id number] AWAKE PRN SOB/WHEEZING Apixaban 5 mg 07/18/18 09:00 07/23/18 09:36 Eliquis* PO 5 mg BID BIN Administration Cholecalciferol 800 unit 07/18/18 08:00 07/23/18 09:36 Vitamin D Tab* PO 800 unit DAILY BIN Administration Cyanocobalamin 1,000 mcg 07/18/18 09:00 07/23/18 09:36 Vitamin B12 Tab* PO 1,000 mcg DAILY BIN Administration Dofetilide 250 mcg 07/18/18 09:00 07/23/18 09:36 Tikosyn Cap* PO 250 mcg BID BIN Administration Doxycycline Hyclate 100 mg 07/18/18 09:00 07/23/18 09:36 Vibramycin Cap(*) PO 100 mg BID BIN Administration Famotidine 20 mg 07/18/18 07:06 07/22/18 20:30 Pepcid Tab* PO 20 mg DAILY PRN Administration INDIGESTION Fluticasone Propionate 2 spray 07/23/18 12:00 Flonase Nasal [place] 50mcg* BOTH NARES DAILY [facility] Guaifenesin 600 mg 07/23/18 12:00 07/23/18 12:33 Mucinex* PO 600 mg BID BIN Administration Latanoprost 1 drop 07/18/18 18:00 07/22/18 17:54 Xalatan 0.005%* BOTH EYES 1 drop QPM BIN Administration Methylprednisolone Sodium Succinate 40 mg 07/20/18 17:00 07/23/18 09:38 Solu-Medrol 40 Mg IV 40 mg Q8H BIN Administration Multivitamins/Minerals 1 cap 07/18/18 09:00 07/23/18 09:35 Preservision Areds 2 PO 1 cap BID BIN Administration Pto - (Pirfenidone [ 801 mg 07/18/18 12:00 01/15/19 12:33 Esbriet] 801 Mg) PO 801 mg TID WITH MEALS BIN Administration Vital Signs Temp Pulse Resp BP Pulse Ox 97.7 F 66 18 98/47 89 07/23/18 11:11 07/23/18 11:11 07/23/18 11:11 07/23/18 11:11 07/23/18 11:11 O/E: Pt in NAD HEENT: PERRLA Lungs: Crackles at bases, no wheeze CVS: S1, S2+, regular Abd: Soft, BS+ Ext: No edema Skin: No rash Labs: No new labs I/R: 83 y o m with h/o pulm fibrosis, recent A.flutter/A.fib a/w worsening SOB Acute IPF exacerbation versus PNA versus fluid overload Pt with acute hypoxic resp failure, no PE noted CT chest showed significant pulm fibrosis with drastic change from prior CT from [address] from [place] from May 2018 also showed significant fibrosis O2 requirement increased to 6L O2 at rest and 8L with activity Received Lasix this am Received high dose steroids for 3 days, will lower to 40 mg IV q 12 hrs Is on Pirfenidone for IPF Titrate O2 as tolerated c/w pepcid for GI px while on steroids Will reassess in am
[2018-07-23] MEDS: Fluticasone NASAL SPRAY 50MCG* 16 gm SPRAY BTL BOTH NARES SCH (14:13)
--- NOTE | 2018-07-23 15:16 | PN ---
Subjective Date of Service: 07/23/18 Interval History: Patient seen and examined. Remains hypoxic with increased O2 requirement today and persistent desaturations. Patient states he feels winded with minimal exertion. Denies chest pain, no palpitations, no n/v, no fevers or chills. Objective Active Medications: Albuterol/Ipratropium (Duoneb (Albuterol 2.5 Mg/Ipratropium 0.5 Mg)) 1 neb INH [id number] AWAKE PRN PRN Reason: SOB/WHEEZING Apixaban (Eliquis*) 5 mg PO BID [facility] Last Admin: 07/23/18 09:36 Dose: 5 mg Cholecalciferol (Vitamin D Tab*) 800 unit PO DAILY [facility] Last Admin: 07/23/18 09:36 Dose: 800 unit Cyanocobalamin (Vitamin B12 Tab*) 1,000 mcg PO DAILY [facility] Last Admin: 07/23/18 09:36 Dose: 1,000 mcg Dofetilide (Tikosyn Cap*) 250 mcg PO BID [facility] Last Admin: 07/23/18 09:36 Dose: 250 mcg Doxycycline Hyclate (Vibramycin Cap(*)) 100 mg PO BID [facility] Last Admin: 07/23/18 09:36 Dose: 100 mg Famotidine (Pepcid Tab*) 20 mg PO DAILY PRN PRN Reason: INDIGESTION Last Admin: 07/22/18 20:30 Dose: 20 mg Fluticasone Propionate (Flonase Nasal [place] 50mcg*) 2 spray BOTH NARES DAILY [facility] Last Admin: 07/23/18 14:13 Dose: Not Given Guaifenesin (Mucinex*) 600 mg PO BID [facility] Last Admin: 07/23/18 12:33 Dose: 600 mg Latanoprost (Xalatan 0.005%*) 1 drop BOTH EYES QPM [facility] Last Admin: 07/22/18 17:54 Dose: 1 drop Methylprednisolone Sodium Succinate (Solu-Medrol 40 Mg) 40 mg IV Q8H [facility] Last Admin: 07/23/18 09:38 Dose: 40 mg Multivitamins/Minerals (Preservision Areds 2) 1 cap PO BID [facility] Last Admin: 07/23/18 09:35 Dose: 1 cap Pto - (Pirfenidone [ (Esbriet] 801 Mg)) 801 mg PO TID WITH MEALS [facility] Last Admin: 07/23/18 12:33 Dose: 801 mg Vital Signs - 8 hr 07/23/18 07/23/18 07/23/18 07:21 08:41 11:11 Temperature 97.4 F 97.7 F Pulse Rate 50 66 Respiratory 18 16 18 Rate Blood Pressure 124/63 98/47 (mmHg) O2 Sat by Pulse 95 89 Oximetry Oxygen Devices in Use Now: Nasal Cannula Appearance: alert, NAD Eyes: No Scleral Icterus, PERRLA Ears/Nose/Mouth/Throat: NL Teeth, Lips, Gums, Mucous Membranes Moist Neck: NL Appearance and Movements; NL JVP, Trachea Midline Respiratory: Symmetrical Chest Expansion and Respiratory Effort, - - poor air entry, diminished lung charlton bilat, no rhonchi, fine rales noted Cardiovascular: NL Sounds; No Murmurs; No JVD, RRR, No Edema Abdominal: NL Sounds; No Tenderness; No Distention, No Hepatosplenomegaly Extremities: No Edema, No Clubbing, Cyanosis Skin: No Rash or Ulcers, No Nodules or Sclerosis Neurological: Alert and Oriented x 3, NL Sensation, NL Gait Nutrition: Taking PO's Result Diagrams: 07/21/18 06:21 07/21/18 06:21 Microbiology and Other Data: Microbiology 07/18/18 20:26 Gram Stain - Final Sputum Expectorated 07/18/18 04:48 Aerobic Blood Culture - Preliminary Blood Venous No Growth Day 1 Anaerobic Blood Culture - Preliminary No Growth Day 1 07/18/18 04:48 Aerobic Blood Culture - Preliminary Blood Venous No Growth Day 1 Anaerobic Blood Culture - Preliminary No Growth Day 1 07/18/18 04:55 Influenza Types A,B Antigen - Final Nasal Specimen received for Influenza A/B Molecular testing Assess/Plan/Problems-Billing Assessment: 83 year old Male with history of pulmonary fibrosis, atrial fibrillation here with fever, cough. - Patient Problems (1) Acute respiratory failure with hypoxia Code(s): J96.01 - ACUTE RESPIRATORY FAILURE WITH HYPOXIA SNOMED Code(s): 18426866 Comment: - 2/2 to pulmonary fibrosis with exacerbation caused by CAP - Consult with Dr. Atul andujar - Taper steroids, continue atbx - Wean O2 as tolerated, although it appears patient will require home O2 - CT concerning for fluid overload and slightly elevated BNP at admission - Limited ECHO pending to re-eval RV and LV function and estimated EF - Will continue IV diureses, as there seems to be a component of failure with his current lung issues. (2) Pulmonary fibrosis Code(s): J84.10 - PULMONARY FIBROSIS, UNSPECIFIED SNOMED Code(s): 38280087 Comment: - Rapid progression on CT scan - Continue IV steroids, will transition to PO and taper starting tomorrow - Continue supplemental O2 - Continue Esbriet (3) Pneumonia Code(s): J18.9 - PNEUMONIA, UNSPECIFIED ORGANISM SNOMED Code(s): 413766137 Comment: - Continue Doxycycline (4) A-fib Code(s): I48.91 - UNSPECIFIED ATRIAL FIBRILLATION SNOMED Code(s): 16816500 Comment: - In RSR - Continue tikosyn and eliquis (5) DVT prophylaxis Code(s): CJL7546 - SNOMED Code(s): 824627425 Comment: - On eliquis (6) Full code status Code(s): Z78.9 - OTHER SPECIFIED HEALTH STATUS SNOMED Code(s): 574464205 Status and Disposition: Inpatient, anticipate DC home in 1-2 days when medically optimized.
[2018-07-23] MEDS: Latanoprost 0.005%* 2.5 ml BTL BOTH EYES SCH (17:26)
[2018-07-24] MEDS: methylPREDNISolone SOD 40 MG* 1 ML VIAL IV SCH ×4 (00:03→20:05)
[2018-07-24] MEDS: PIRFENIDONE 801 MG PO SCH ×3 (08:30→17:25)
[2018-07-24] MEDS: Fluticasone NASAL SPRAY 50MCG* 16 gm SPRAY BTL BOTH NARES SCH (08:31)
[2018-07-24] MEDS: MULTIVITAMINS AREDS2 PO SCH ×2 (08:31→21:15)
[2018-07-24] MEDS: MINS PO SCH ×2 (08:31→21:15)
[2018-07-24] MEDS: Cholecalciferol TAB* 400 UNIT PO SCH (08:31)
[2018-07-24] MEDS: Dofetilide CAP* 250 MCG PO SCH ×2 (08:31→21:10)
[2018-07-24] MEDS: Apixaban* 5 MG TAB PO SCH ×2 (08:32→21:10)
[2018-07-24] MEDS: guaiFENesin ER TAB 600 MG PO SCH ×2 (08:32→21:09)
[2018-07-24] MEDS: DOXYcycline CAP(*) 100 MG PO SCH ×2 (08:32→21:09)
[2018-07-24] MEDS: Cyanocobalamin TAB* 500 MCG PO SCH (08:32)
--- NOTE | 2018-07-24 09:58 | PN ---
Subjective Date of Service: 07/24/18 Interval History: Nurse expressing concern this morning as he his oxygen saturation decrease to low 80s when washing up this morning despite being on 8L nasal cannula. She reports he did recover after resting but took some time and continued 8L oxygen supplementation. It should be noted that patient was 99% on 4L this morning with sleeping. This afternoon patient ambulated to bathroom on 8L and remained above 90%. Patient reports he feels he is improving. Denies chest pain, palpitations, nausea, vomiting, diarrhea, fever/chills Objective Active Medications: Albuterol/Ipratropium (Duoneb (Albuterol 2.5 Mg/Ipratropium 0.5 Mg)) 1 neb INH [id number] AWAKE PRN PRN Reason: SOB/WHEEZING Apixaban (Eliquis*) 5 mg PO BID [facility] Last Admin: 07/24/18 08:32 Dose: 5 mg Cholecalciferol (Vitamin D Tab*) 800 unit PO DAILY [facility] Last Admin: 07/24/18 08:31 Dose: 800 unit Cyanocobalamin (Vitamin B12 Tab*) 1,000 mcg PO DAILY [facility] Last Admin: 07/24/18 08:32 Dose: 1,000 mcg Dofetilide (Tikosyn Cap*) 250 mcg PO BID [facility] Last Admin: 07/24/18 08:31 Dose: 250 mcg Doxycycline Hyclate (Vibramycin Cap(*)) 100 mg PO BID [facility] Last Admin: 07/24/18 08:32 Dose: 100 mg Famotidine (Pepcid Tab*) 20 mg PO DAILY PRN PRN Reason: INDIGESTION Last Admin: 07/22/18 20:30 Dose: 20 mg Fluticasone Propionate (Flonase Nasal [place] 50mcg*) 2 spray BOTH NARES DAILY [facility] Last Admin: 07/24/18 08:31 Dose: 2 spray Guaifenesin (Mucinex*) 600 mg PO BID [facility] Last Admin: 07/24/18 08:32 Dose: 600 mg Latanoprost (Xalatan 0.005%*) 1 drop BOTH EYES QPM [facility] Last Admin: 07/23/18 17:26 Dose: 1 drop Methylprednisolone Sodium Succinate (Solu-Medrol 40 Mg) 40 mg IV Q8H [facility] Last Admin: 01/16/19 08:31 Dose: 40 mg Multivitamins/Minerals (Preservision Areds 2) 1 cap PO BID [facility] Last Admin: 07/24/18 08:31 Dose: 1 cap Pto - (Pirfenidone [ (Esbriet] 801 Mg)) 801 mg PO TID WITH MEALS [facility] Last Admin: 07/24/18 08:30 Dose: 801 mg Vital Signs - 8 hr 07/24/18 07/24/18 02:38 07:25 Temperature 97.6 F 98.1 F Pulse Rate 49 44 Respiratory 18 18 Rate Blood Pressure 116/69 110/53 (mmHg) O2 Sat by Pulse 98 99 Oximetry Oxygen Devices in Use Now: Nasal Cannula Appearance: NAD Eyes: No Scleral Icterus Ears/Nose/Mouth/Throat: Clear Oropharnyx, Mucous Membranes Moist Neck: NL Appearance and Movements; NL JVP Respiratory: Symmetrical Chest Expansion and Respiratory Effort, - - Diminished throughout Cardiovascular: NL Sounds; No Murmurs; No JVD, RRR, No Edema, - Abdominal: NL Sounds; No Tenderness; No Distention Lymphatic: No Cervical Adenopathy Extremities: No Edema Skin: No Rash or Ulcers Neurological: Alert and Oriented x 3 Nutrition: Taking PO's Result Diagrams: 07/24/18 12:13 07/24/18 12:13 Microbiology and Other Data: Microbiology 07/18/18 20:26 Gram Stain - Final Sputum Expectorated 07/18/18 04:48 Aerobic Blood Culture - Preliminary Blood Venous No Growth Day 1 Anaerobic Blood Culture - Preliminary No Growth Day 1 07/18/18 04:48 Aerobic Blood Culture - Preliminary Blood Venous No Growth Day 1 Anaerobic Blood Culture - Preliminary No Growth Day 1 07/18/18 04:55 Influenza Types A,B Antigen - Final Nasal Specimen received for Influenza A/B Molecular testing Assess/Plan/Problems-Billing Assessment: 83 year old Male with history of pulmonary fibrosis, atrial fibrillation here with fever, cough. - Patient Problems (1) Acute respiratory failure with hypoxia Comment: - 2/2 to pulmonary fibrosis with exacerbation caused by CAP - Taper steroids, continue abx - Wean O2 as tolerated, although it appears patient will require home O2. - CT concerning for fluid overload and slightly elevated BNP at admission - Received IV diureses yesterday, as there seems to be a component of failure with his current lung issues. - No lasix given today as he does not appear wet - Echo revealed 50 to 55% EF, left ventricle normal, right ventricle mildly reduced function - Discussed with Dr Pollard, we will stop Esbriet as could be offending agent. Discussed with patient provided in [facility] who agrees with plan. He would also like to see patient after discharge (2) Pulmonary fibrosis Comment: - Rapid progression on CT scan - Continue IV steroids. Reduced to 40 mg IV Q 12 hrs from Q 8 hrs per pulm consult - Continue supplemental O2 - Discontinue Esbriet per Dr Pollard. Also discussed with patient's finance intern in [facility] (3) Pneumonia Comment: - Continue Doxycycline (4) A-fib Comment: - In RSR - Continue tikosyn and eliquis (5) DVT prophylaxis Comment: - On eliquis (6) Full code status Status and Disposition: Inpatient, anticipate DC home when medically optimized. Attending: Angela Shankar
[2018-07-24 12:22] LABS: ABS Basophils 0 10^3/ul (0-0.2); ABS Eosinophils 0.1 10^3/ul (0-0.6); ABS Lymphocytes 0.8 10^3/ul (1.0-4.8); ABS Neutrophils 12.7 10^3/ul (1.5-7.7); ABS Nucleated RBC 0 10^3/ul; Eosinophil % 0.5 %; Hematocrit 39 % (42-52); Hemoglobin 13.5 g/dl (14.0-18.0); Lymphocyte % 5.3 %; Mean Corpuscular HGB Conc 34 g/dl (31-36); Mean Corpuscular Hemoglobin 33 pg (27-31); Mean Corpuscular Volume 97 fL (80-94); Mean Platelet Volume 6.9 fL (7.4-10.4); Nucleated Red Blood Cells % 0; Platelet Count 334 10^3/ul (150-450); Red Blood Count 4.07 10^6/ul (4.00-5.40); Red Cell Distribution Width 12 % (10.5-15); White Blood Count 14.6 10^3/ul (3.5-10.8)
[2018-07-24 12:42] LABS: Calcium 9.1 mg/dL (8.6-10.3); EGFR African American 112.3 (>60); EGFR Non-African American 92.8 (>60); Magnesium 2.3 mg/dL (1.9-2.7); Potassium 4.1 mmol/L (3.5-5.0)
[2018-07-24] MEDS: Latanoprost 0.005%* 2.5 ml BTL BOTH EYES SCH (17:25)
[2018-07-25 06:38] LABS: Hematocrit 39 % (42-52); Hemoglobin 13.3 g/dl (14.0-18.0); Mean Corpuscular HGB Conc 34 g/dl (31-36); Mean Corpuscular Hemoglobin 33 pg (27-31); Mean Corpuscular Volume 97 fL (80-94); Platelet Count 337 10^3/ul (150-450); Red Blood Count 4.03 10^6/ul (4.00-5.40); Red Cell Distribution Width 12 % (10.5-15); White Blood Count 9.9 10^3/ul (3.5-10.8)
[2018-07-25 06:58] LABS: ABS Basophils 0 10^3/ul (0-0.2); ABS Eosinophils 0 10^3/ul (0-0.6); ABS Lymphocytes 1.3 10^3/ul (1.0-4.8); ABS Monocytes 0.7 10^3/ul (0-0.8); ABS Neutrophils 7.8 10^3/ul (1.5-7.7); ABS Nucleated RBC 0 10^3/ul; Eosinophil % 0.1 %; Lymphocyte % 13.4 %; Nucleated Red Blood Cells % 0
[2018-07-25 06:59] LABS: BUN/Creatinine Ratio 31.6 (8-20); Calcium 8.8 mg/dL (8.6-10.3); EGFR African American 113.9 (>60); EGFR Non-African American 94.1 (>60); Potassium 4.2 mmol/L (3.5-5.0)
[2018-07-25] MEDS: MINS PO SCH ×2 (08:34→21:58)
[2018-07-25] MEDS: methylPREDNISolone SOD 40 MG* 1 ML VIAL IV SCH (08:34)
[2018-07-25] MEDS: Cholecalciferol TAB* 400 UNIT PO SCH (08:34)
[2018-07-25] MEDS: Dofetilide CAP* 250 MCG PO SCH ×2 (08:34→21:58)
[2018-07-25] MEDS: MULTIVITAMINS AREDS2 PO SCH ×2 (08:34→21:58)
[2018-07-25] MEDS: Apixaban* 5 MG TAB PO SCH ×2 (08:34→21:55)
[2018-07-25] MEDS: guaiFENesin ER TAB 600 MG PO SCH ×2 (08:35→21:55)
[2018-07-25] MEDS: DOXYcycline CAP(*) 100 MG PO SCH ×2 (08:35→21:55)
[2018-07-25] MEDS: Cyanocobalamin TAB* 500 MCG PO SCH (08:35)
[2018-07-25] MEDS: Fluticasone NASAL SPRAY 50MCG* 16 gm SPRAY BTL BOTH NARES SCH (08:35)
[2018-07-25] MEDS ORDERED: Furosemide IV* 10 MG/ML 2 ML VIAL (20 MG) IV ONE (15:31)
[2018-07-25] MEDS: Latanoprost 0.005%* 2.5 ml BTL BOTH EYES SCH ×2 (16:32→22:05)
--- NOTE | 2018-07-25 16:50 | PN ---
Subjective Date of Service: 07/25/18 Interval History: Per nurse patient is requiring 4L NC when sitting and 8L with exertion. In addition, she reports he is taking longer to recover his oxygen saturation after ambulation as evidence by requiring 8L for a longer period after ambulation to maintain saturations. On assessment patient is sitting in chair and breathing with ease. Reports sob with exertion. Denies chest pain, palpitations, nausea, vomiting, diarrhea, fever/chills Objective Active Medications: Albuterol/Ipratropium (Duoneb (Albuterol 2.5 Mg/Ipratropium 0.5 Mg)) 1 neb INH [id number] AWAKE PRN PRN Reason: SOB/WHEEZING Apixaban (Eliquis*) 5 mg PO BID [facility] Last Admin: 07/25/18 08:34 Dose: 5 mg Cholecalciferol (Vitamin D Tab*) 800 unit PO DAILY [facility] Last Admin: 07/25/18 08:34 Dose: 800 unit Cyanocobalamin (Vitamin B12 Tab*) 1,000 mcg PO DAILY [facility] Last Admin: 07/25/18 08:35 Dose: 1,000 mcg Dofetilide (Tikosyn Cap*) 250 mcg PO BID [facility] Last Admin: 07/25/18 08:34 Dose: 250 mcg Doxycycline Hyclate (Vibramycin Cap(*)) 100 mg PO BID [facility] Last Admin: 07/25/18 08:35 Dose: 100 mg Famotidine (Pepcid Tab*) 20 mg PO DAILY PRN PRN Reason: INDIGESTION Last Admin: 07/22/18 20:30 Dose: 20 mg Fluticasone Propionate (Flonase Nasal [place] 50mcg*) 2 spray BOTH NARES DAILY [facility] Last Admin: 07/25/18 08:35 Dose: 2 spray Guaifenesin (Mucinex*) 600 mg PO BID [facility] Last Admin: 07/25/18 08:35 Dose: 600 mg Latanoprost (Xalatan 0.005%*) 1 drop BOTH EYES QPM [facility] Last Admin: 07/24/18 17:25 Dose: 1 drop Multivitamins/Minerals (Preservision Areds 2) 1 cap PO BID [facility] Last Admin: 07/25/18 08:34 Dose: 1 cap Prednisone (Deltasone Tab*) 60 mg PO DAILY [facility] Vital Signs - 8 hr 07/25/18 07/25/18 11:28 15:12 Temperature 97.4 F 97.8 F Pulse Rate 50 50 Respiratory 20 20 Rate Blood Pressure 118/62 121/62 (mmHg) O2 Sat by Pulse 97 97 Oximetry Oxygen Devices in Use Now: Nasal Cannula Appearance: NAD Eyes: No Scleral Icterus Ears/Nose/Mouth/Throat: Clear Oropharnyx, Mucous Membranes Moist Neck: NL Appearance and Movements; NL JVP Respiratory: Symmetrical Chest Expansion and Respiratory Effort, - - Diminished aeration Cardiovascular: NL Sounds; No Murmurs; No JVD, RRR, No Edema Abdominal: NL Sounds; No Tenderness; No Distention Lymphatic: No Cervical Adenopathy Extremities: No Edema, No Clubbing, Cyanosis Skin: No Rash or Ulcers Neurological: Alert and Oriented x 3 Nutrition: Taking PO's Result Diagrams: 07/25/18 05:44 07/25/18 05:48 Microbiology and Other Data: Microbiology 07/18/18 20:26 Gram Stain - Final Sputum Expectorated 07/18/18 04:48 Aerobic Blood Culture - Preliminary Blood Venous No Growth Day 1 Anaerobic Blood Culture - Preliminary No Growth Day 1 07/18/18 04:48 Aerobic Blood Culture - Preliminary Blood Venous No Growth Day 1 Anaerobic Blood Culture - Preliminary No Growth Day 1 07/18/18 04:55 Influenza Types A,B Antigen - Final Nasal Specimen received for Influenza A/B Molecular testing Assess/Plan/Problems-Billing Assessment: 83 year old Male with history of pulmonary fibrosis, atrial fibrillation; who is inpatient for exacerbation of pulmonary fibrosis due to pna - Patient Problems (1) Acute respiratory failure with hypoxia Comment: - 2/2 to pulmonary fibrosis with exacerbation caused by CAP - Steriods changes from Solumedrol 40 mg IV Q 12 hrs to Prednisone 60 mg PO daily. - Lasix 20 mg given today for further diuresis. CT concern for fluid overload and mildly elevated bnp on admission. Tolerated diuresis 07/23 and had noted decrease it weight - Echo revealed 50 to 55% EF, left ventricle normal, right ventricle mildly reduced function - Esbriet discontinued yesterday - Awaiting reports for specialist in [facility] (2) Pulmonary fibrosis Comment: - Rapid progression on CT scan - Steriods transitioned to PO - Continue supplemental O2 - Discontinued Esbriet (3) Pneumonia Comment: - Continue Doxycycline (4) A-fib Comment: - In RSR - Continue tikosyn and eliquis - Patient has been noted to be bradycardic at rest and he reports this is baseline due to active lifestyle - Mag > 2 and K + > 4 (5) DVT prophylaxis Comment: - On eliquis (6) Full code status Status and Disposition: Inpatient, anticipate DC home when medically optimized. Attending: Evgeny Welch
--- NOTE | 2018-07-25 17:02 | PN ---
Progress Note - Progress Note Date of Service: 07/25/18 - Pulm f/u note Note: Pt seen and examined at bedside. Pt reports no new complaints today. Is concerned regarding no improvement in O2 needs. Not much coughing today. Active Medications Generic Name Dose Route Start Last Admin Trade Name Freq PRN Reason Stop Dose Admin Albuterol/Ipratropium 1 neb 07/20/18 15:13 Duoneb (Albuterol 2.5 Mg/Ipratropium 0.5 Mg) INH [id number] AWAKE PRN SOB/WHEEZING Apixaban 5 mg 07/18/18 09:00 07/25/18 08:34 Eliquis* PO 5 mg BID BIN Administration Cholecalciferol 800 unit 07/18/18 08:00 07/25/18 08:34 Vitamin D Tab* PO 800 unit DAILY BIN Administration Cyanocobalamin 1,000 mcg 07/18/18 09:00 07/25/18 08:35 Vitamin B12 Tab* PO 1,000 mcg DAILY BIN Administration Dofetilide 250 mcg 07/18/18 09:00 07/25/18 08:34 Tikosyn Cap* PO 250 mcg BID BIN Administration Doxycycline Hyclate 100 mg 07/18/18 09:00 07/25/18 08:35 Vibramycin Cap(*) PO 100 mg BID BIN Administration Famotidine 20 mg 07/18/18 07:06 07/22/18 20:30 Pepcid Tab* PO 20 mg DAILY PRN Administration INDIGESTION Fluticasone Propionate 2 spray 07/23/18 12:00 07/25/18 08:35 Flonase Nasal [place] 50mcg* BOTH NARES 2 spray DAILY BIN Administration Guaifenesin 600 mg 07/23/18 12:00 07/25/18 08:35 Mucinex* PO 600 mg BID BIN Administration Latanoprost 1 drop 07/18/18 18:00 07/24/18 17:25 Xalatan 0.005%* BOTH EYES 1 drop QPM BIN Administration Multivitamins/Minerals 1 cap 07/18/18 09:00 07/25/18 08:34 Preservision Areds 2 PO 1 cap BID BIN Administration Prednisone 60 mg 07/26/18 17:00 Deltasone Tab* PO DAILY BIN Vital Signs Temp Pulse Resp BP Pulse Ox 97.8 F 50 20 121/62 97 01/17/19 15:12 07/25/18 15:12 07/25/18 15:12 07/25/18 15:12 07/25/18 15:12 O/E: Pt in NAD, lying in bed HEENT: PERRLA, no JVD, no accessory muscle usage Lungs: Crackles at bases, no wheeze CVS: S1, S2+, regular Abd: Soft, BS+ Ext: No edema Skin: No rash Laboratory Results - last 24 hr 07/25/18 07/25/18 05:44 05:48 WBC 9.9 RBC 4.03 Hgb 13.3 L Hct 39 L MCV 97 H MCH 33 H MCHC 34 RDW 12 Plt Count 337 MPV 7.0 L Neut % (Auto) 79.0 Lymph % (Auto) 13.4 [place] % (Auto) 7.1 Eos % (Auto) 0.1 Baso % (Auto) 0.4 Absolute Neuts (auto) 7.8 H Absolute Lymphs (auto) 1.3 Absolute Monos (auto) 0.7 Absolute Eos (auto) 0 Absolute Basos (auto) 0 Absolute Nucleated RBC 0 Nucleated RBC % 0 Sodium 131 L Potassium 4.2 Chloride 95 L Carbon Dioxide 30 Anion Gap 6 BUN 25 H Creatinine 0.79 Est GFR ( Amer) 113.9 Est GFR (Non-Af Amer) 94.1 BUN/Creatinine Ratio 31.6 H Glucose 99 Calcium 8.8 I/R: 83 y o m with h/o pulm fibrosis, recent A.flutter/A.fib a/w worsening SOB Acute IPF exacerbation versus PNA versus fluid overload Pt with acute hypoxic resp failure, no PE noted CT chest showed significant pulm fibrosis with drastic change from prior CT from [address] from [place] from May 2018 also showed significant fibrosis O2 requirement at 4L O2 at rest and 8L with activity Received high dose steroids for 3 days, changed to prednisone at 62 Completed 7 day course of abx Is on Pirfenidone for IPF, d/satnam with concern for medication side effect ? Tikosyn side effect Will discuss with cardiology regarding d/cing if not better Titrate O2 as tolerated, O2 sat around 92% is acceptable c/w pepcid for GI px while on steroids D/c planning if stable tomorrow with arrangements for O2 and home care.
[2018-07-25] MEDS: Saline NASAL SPRAY 0.65%* BTL BOTH NARES PRN (23:21)
[2018-07-26 08:28] LABS: BUN/Creatinine Ratio 30.3 (8-20); Blood Urea Nitrogen 27 mg/dL (6-24); CO2 Carbon Dioxide 32 mmol/L (22-32); Chloride 93 mmol/L (101-111); EGFR African American 99.3 (>60); Glucose 91 mg/dL (70-100); Magnesium 2.2 mg/dL (1.9-2.7); Sodium 129 mmol/L (135-145)
[2018-07-26 08:47] LABS: Anion Gap 4 mmol/L (2-11)
[2018-07-26] MEDS ORDERED: Furosemide TAB* 20 MG PO SCH (09:00)
[2018-07-26] MEDS: Dofetilide CAP* 250 MCG PO SCH ×2 (09:12→21:08)
[2018-07-26] MEDS: Cholecalciferol TAB* 400 UNIT PO SCH (09:12)
[2018-07-26] MEDS: Apixaban* 5 MG TAB PO SCH ×2 (09:12→21:08)
[2018-07-26] MEDS: Fluticasone NASAL SPRAY 50MCG* 16 gm SPRAY BTL BOTH NARES SCH ×2 (09:13→09:15)
[2018-07-26] MEDS: DOXYcycline CAP(*) 100 MG PO SCH (09:13)
[2018-07-26] MEDS: MULTIVITAMINS AREDS2 PO SCH ×3 (09:13→20:15)
[2018-07-26] MEDS: MINS PO SCH ×3 (09:13→20:15)
[2018-07-26] MEDS: guaiFENesin ER TAB 600 MG PO SCH ×2 (09:13→21:08)
[2018-07-26] MEDS: Cyanocobalamin TAB* 500 MCG PO SCH (09:13)
[2018-07-26] MEDS: Saline NASAL SPRAY 0.65%* BTL BOTH NARES PRN (09:19)
--- NOTE | 2018-07-26 14:17 | PN ---
Progress Note - Progress Note Date of Service: 07/26/18 - Pulm f/u note Note: Pt seen and examined at bedside. Pt reports no change in sx. Still becoming dyspneic with minimal ambulation. Active Medications Generic Name Dose Route Start Last Admin Trade Name Freq PRN Reason Stop Dose Admin Albuterol/Ipratropium 1 neb 07/20/18 15:13 Duoneb (Albuterol 2.5 Mg/Ipratropium 0.5 Mg) INH [id number] AWAKE PRN SOB/WHEEZING Apixaban 5 mg 07/18/18 09:00 07/26/18 09:12 Eliquis* PO 5 mg BID BIN Administration Cholecalciferol 800 unit 07/18/18 08:00 07/26/18 09:12 Vitamin D Tab* PO 800 unit DAILY BIN Administration Cyanocobalamin 1,000 mcg 07/18/18 09:00 07/26/18 09:13 Vitamin B12 Tab* PO 1,000 mcg DAILY BIN Administration Dofetilide 250 mcg 07/18/18 09:00 07/26/18 09:12 Tikosyn Cap* PO 250 mcg BID BIN Administration Doxycycline Hyclate 100 mg 07/18/18 09:00 07/26/18 09:13 Vibramycin Cap(*) PO 100 mg BID BIN Administration Famotidine 20 mg 07/18/18 07:06 07/22/18 20:30 Pepcid Tab* PO 20 mg DAILY PRN Administration INDIGESTION Fluticasone Propionate 2 spray 07/23/18 12:00 07/26/18 09:15 Flonase Nasal [place] 50mcg* BOTH NARES Not Given DAILY BIN Guaifenesin 600 mg 07/23/18 12:00 07/26/18 09:13 Mucinex* PO 600 mg BID BIN Administration Latanoprost 1 drop 07/25/18 21:00 07/25/18 22:05 Xalatan 0.005%* BOTH EYES 1 drop BEDTIME BIN Administration Multivitamins/Minerals 1 cap 07/18/18 09:00 07/26/18 09:13 Preservision Areds 2 PO 1 cap BID BIN Administration Prednisone 60 mg 07/26/18 17:00 Deltasone Tab* PO DAILY BIN Sodium Chloride 1 spray 07/25/18 22:06 07/26/18 09:19 Sodium Chloride 0.65% Nasal [place]* BOTH NARES 1 spray Q3H PRN Administration Dryness Vital Signs Temp Pulse Resp BP Pulse Ox 98.1 F 48 16 113/58 99 07/26/18 11:40 07/26/18 11:40 07/26/18 11:40 07/26/18 11:40 07/26/18 11:40 O/E: Pt in NAD, lying in bed HEENT: PERRLA, no JVD, no accessory muscle usage Lungs: Crackles at bases, no wheeze CVS: S1, S2+, regular Abd: Soft, BS+ Ext: No edema Skin: No rash Laboratory Results - last 24 hr 07/26/18 07/26/18 07:55 09:06 Sodium 129 L Potassium TNP 3.5 Chloride 93 L Carbon Dioxide 32 Anion Gap 4 BUN 27 H Creatinine 0.89 Est GFR ( Amer) 99.3 Est GFR (Non-Af Amer) 82.0 BUN/Creatinine Ratio 30.3 H Glucose 91 Calcium 9.0 Magnesium 2.2 I/R: 83 y o m with h/o pulm fibrosis, recent A.flutter/A.fib a/w worsening SOB Acute IPF exacerbation versus PNA versus fluid overload Pt with acute hypoxic resp failure, no PE noted CT chest showed significant pulm fibrosis with drastic change from prior CT from [address] from [place] from May 2018 also showed significant fibrosis I have reviewed CT done at [facility] 1 day prior to hospitalization, worsening air space opacities and fibrotic changes compared to May 2018. O2 requirement at 4L O2 at rest and 8L with activity Desaturates on O2 however able to recover with rest Received high dose steroids for 3 days, changed to prednisone at 60 Completed 7 day course of abx Will d/c with 60mg prednisone and c/w slow taper of 5 mg weekly Is on Pirfenidone for IPF, d/satnam with concern for medication side effect ? Tikosyn side effect Lasix was given x2 with no effect Will discuss with cardiology regarding d/cing ias he is in NSR and significant change since introduction of medication in June Titrate O2 as tolerated, O2 sat around 92% is acceptable c/w pepcid for GI px while on steroids D/c planning today with arrangements for O2 and home care. D/w pt, family at bedside and Penny Jacome [employer]
[2018-07-26] MEDS: predniSONE TAB* 20 MG PO SCH (18:33)
--- NOTE | 2018-07-26 19:00 | PN ---
Subjective Date of Service: 07/26/18 Interval History: Patient assessed in chair. Family at bedside. Patient expresses concern due to quick and significant destat while ambulating. Reports he was ambulating this morning on 8L NC and was doing okay until destat' ed into the mid 70s. Patient can recover well with rest and reach O2 sat goal. In addition with no exertion patient's oxygen saturation is in range on 4L. Patient denies fever/chills, cp, palpitations, nausea, vomiting, diarrhea. Objective Active Medications: Albuterol/Ipratropium (Duoneb (Albuterol 2.5 Mg/Ipratropium 0.5 Mg)) 1 neb INH [id number] AWAKE PRN PRN Reason: SOB/WHEEZING Apixaban (Eliquis*) 5 mg PO BID [facility] Last Admin: 07/26/18 09:12 Dose: 5 mg Cholecalciferol (Vitamin D Tab*) 800 unit PO DAILY [facility] Last Admin: 07/26/18 09:12 Dose: 800 unit Cyanocobalamin (Vitamin B12 Tab*) 1,000 mcg PO DAILY [facility] Last Admin: 07/26/18 09:13 Dose: 1,000 mcg Dofetilide (Tikosyn Cap*) 250 mcg PO BID [facility] Last Admin: 07/26/18 09:12 Dose: 250 mcg Famotidine (Pepcid Tab*) 20 mg PO DAILY PRN PRN Reason: INDIGESTION Last Admin: 07/22/18 20:30 Dose: 20 mg Fluticasone Propionate (Flonase Nasal [place] 50mcg*) 2 spray BOTH NARES DAILY [facility] Last Admin: 07/26/18 09:15 Dose: Not Given Guaifenesin (Mucinex*) 600 mg PO BID [facility] Last Admin: 07/26/18 09:13 Dose: 600 mg Latanoprost (Xalatan 0.005%*) 1 drop BOTH EYES BEDTIME [facility] Last Admin: 07/25/18 22:05 Dose: 1 drop Multivitamins/Minerals (Preservision Areds 2) 1 cap PO BID [facility] Last Admin: 07/26/18 18:34 Dose: 1 cap Prednisone (Deltasone Tab*) 60 mg PO DAILY [facility] Last Admin: 07/26/18 18:33 Dose: 60 mg Sodium Chloride (Sodium Chloride 0.65% Nasal [place]*) 1 spray BOTH NARES Q3H PRN PRN Reason: Dryness Last Admin: 07/26/18 09:19 Dose: 1 spray Vital Signs - 8 hr 07/26/18 07/26/18 11:40 15:48 Temperature 98.1 F 98.0 F Pulse Rate 48 49 Respiratory 16 16 Rate Blood Pressure 113/58 106/53 (mmHg) O2 Sat by Pulse 99 96 Oximetry Oxygen Devices in Use Now: Nasal Cannula Appearance: Comfortable, NAD Eyes: No Scleral Icterus Ears/Nose/Mouth/Throat: Clear Oropharnyx, Mucous Membranes Moist Neck: NL Appearance and Movements; NL JVP Respiratory: Symmetrical Chest Expansion and Respiratory Effort, Clear to Auscultation - Decreased aeration Cardiovascular: NL Sounds; No Murmurs; No JVD, RRR, No Edema Abdominal: NL Sounds; No Tenderness; No Distention Lymphatic: No Cervical Adenopathy Extremities: No Edema Skin: No Rash or Ulcers Neurological: Alert and Oriented x 3 Nutrition: Taking PO's Result Diagrams: 07/25/18 05:44 07/26/18 09:06 Microbiology and Other Data: Laboratory Results - last 24 hr 07/26/18 07/26/18 07/26/18 07:55 09:06 16:55 Patient Temperature Not Reportable ABG pH 7.45 ABG pH (Temp Correct) Not Reportable ABG pCO2 42 ABG pCO2 (Temp Corrct Not Reportable ABG pO2 73 L ABG pO2 (Temp Correct Not Reportable ABG HCO3 28.5 ABG O2 Saturation 95.7 ABG Base Excess 4.7 H Respiration Rate Not Reportable O2 Delivery Device n/c Ventilator Type Not Reportable Vent Mode Not Reportable FiO2 2 Inspiratory Time Not Reportable PEEP Not Reportable Pressure Support Not Reportable Pressure Control Not Reportable EPAP Not Reportable IPAP Not Reportable BiPAP Not Reportable Sodium 129 L Potassium TNP 3.5 Chloride 93 L Carbon Dioxide 32 Anion Gap 4 BUN 27 H Creatinine 0.89 Est GFR ( Amer) 99.3 Est GFR (Non-Af Amer) 82.0 BUN/Creatinine Ratio 30.3 H Glucose 91 Calcium 9.0 Magnesium 2.2 Assess/Plan/Problems-Billing Assessment: 83 year old Male with history of pulmonary fibrosis, atrial fibrillation; who is inpatient for exacerbation of pulmonary fibrosis due to pna - Patient Problems (1) Acute respiratory failure with hypoxia Comment: - 2/2 to pulmonary fibrosis with exacerbation caused by CAP - Prednisone 60 mg PO daily. Will need 5 wk taper per Atul - Completed abx course - Lasix given with no effect - Esbriet discontinued as it was a newly started med before flare - Dr Pollard suggested stopping Tikosyn as this was also started shortly before exacerbation of pulmonary fibrosis. Discussed with Dr Vidales who was okay with patient stopping as long as he knew to return if new/worseing symptoms and was educated not to restart Tikosyn on his own at home. Discussed at length with patient and family. They have come to conclusion they would like to not discontinue Tikosyn at this point. (2) Pulmonary fibrosis Comment: - Rapid progression on CT scan - Steriods transitioned to PO. Will need [address] Pollard will manage as outpatient when patient is discharge. - Continue supplemental O2. Wean to keep O2 sat of 92% - Discontinued Esbriet (3) Pneumonia Comment: - Completed Doxycycline (4) A-fib Comment: - In RSR with occasional bradycardia - Continue tikosyn and eliquis - Patient has been noted to be bradycardic at rest and he reports this is baseline due to active lifestyle (5) DVT prophylaxis Comment: - On eliquis (6) Full code status Status and Disposition: Inpatient, anticipate DC home when medically optimized. Attending: Evgeny Welch
[2018-07-26] MEDS: Latanoprost 0.005%* 2.5 ml BTL BOTH EYES SCH (21:08)
[2018-07-27] MEDS: MINS PO SCH ×2 (07:32→21:22)
[2018-07-27] MEDS: MULTIVITAMINS AREDS2 PO SCH ×2 (07:32→21:22)
[2018-07-27] MEDS: Saline NASAL SPRAY 0.65%* BTL BOTH NARES PRN (07:32)
[2018-07-27] MEDS: guaiFENesin ER TAB 600 MG PO SCH ×2 (07:33→21:22)
[2018-07-27] MEDS: Cholecalciferol TAB* 400 UNIT PO SCH (07:33)
[2018-07-27] MEDS: Dofetilide CAP* 250 MCG PO SCH ×2 (07:33→21:22)
[2018-07-27] MEDS: Apixaban* 5 MG TAB PO SCH ×2 (07:33→21:22)
[2018-07-27] MEDS: Cyanocobalamin TAB* 500 MCG PO SCH (07:33)
[2018-07-27] MEDS: predniSONE TAB* 20 MG PO SCH (07:33)
[2018-07-27] MEDS: Fluticasone NASAL SPRAY 50MCG* 16 gm SPRAY BTL BOTH NARES SCH (07:34)
[2018-07-27 07:53] LABS: BUN/Creatinine Ratio 28.2 (8-20); Calcium 8.7 mg/dL (8.6-10.3); EGFR African American 104.7 (>60); EGFR Non-African American 86.5 (>60); Potassium 4.3 mmol/L (3.5-5.0)
--- NOTE | 2018-07-27 11:32 | PN ---
Progress Note - Progress Note Date of Service: 07/27/18 - Pulm f/u note Note: Pt seen and examined at bedside. Pt reports slight improvement in SOB, was less dyspneic after returning from bath room and was able to recover faster. Denies chest pain, dizziness, productive cough Active Medications Generic Name Dose Route Start Last Admin Trade Name Freq PRN Reason Stop Dose Admin Albuterol/Ipratropium 1 neb 07/20/18 15:13 Duoneb (Albuterol 2.5 Mg/Ipratropium 0.5 Mg) INH [id number] AWAKE PRN SOB/WHEEZING Apixaban 5 mg 07/18/18 09:00 07/27/18 07:33 Eliquis* PO 5 mg BID BIN Administration Cholecalciferol 800 unit 07/18/18 08:00 07/27/18 07:33 Vitamin D Tab* PO 800 unit DAILY BIN Administration Cyanocobalamin 1,000 mcg 07/18/18 09:00 07/27/18 07:33 Vitamin B12 Tab* PO 1,000 mcg DAILY BIN Administration Dofetilide 250 mcg 07/18/18 09:00 07/27/18 07:33 Tikosyn Cap* PO 250 mcg BID BIN Administration Famotidine 20 mg 07/18/18 07:06 07/22/18 20:30 Pepcid Tab* PO 20 mg DAILY PRN Administration INDIGESTION Fluticasone Propionate 2 spray 07/23/18 12:00 07/27/18 07:34 Flonase Nasal [place] 50mcg* BOTH NARES Not Given DAILY BIN Guaifenesin 600 mg 07/23/18 12:00 07/27/18 07:33 Mucinex* PO 600 mg BID BIN Administration Latanoprost 1 drop 07/25/18 21:00 07/26/18 21:08 Xalatan 0.005%* BOTH EYES 1 drop BEDTIME BIN Administration Multivitamins/Minerals 1 cap 07/18/18 09:00 07/27/18 07:32 Preservision Areds 2 PO 1 cap BID BIN Administration Prednisone 60 mg 07/26/18 17:00 07/27/18 07:33 Deltasone Tab* PO 60 mg DAILY BIN Administration Sodium Chloride 1 spray 07/25/18 22:06 07/27/18 07:32 Sodium Chloride 0.65% Nasal [place]* BOTH NARES 1 spray Q3H PRN Administration Dryness Vital Signs Temp Pulse Resp BP Pulse Ox 97.7 F 56 18 114/63 96 07/27/18 07:12 07/27/18 07:25 07/27/18 07:39 07/27/18 07:12 07/27/18 07:39 O/E: Pt in NAD, lying in bed HEENT: PERRLA, no JVD, no accessory muscle usage Lungs: Crackles at bases, no wheeze, better aeration today CVS: S1, S2+, regular Abd: Soft, BS+ Ext: No edema Skin: No rash Laboratory Results - last 24 hr 07/26/18 07/27/18 16:55 07:14 Patient Temperature Not Reportable ABG pH 7.45 ABG pH (Temp Correct) Not Reportable ABG pCO2 42 ABG pCO2 (Temp Corrct Not Reportable ABG pO2 73 L ABG pO2 (Temp Correct Not Reportable ABG HCO3 28.5 ABG O2 Saturation 95.7 ABG Base Excess 4.7 H Respiration Rate Not Reportable O2 Delivery Device n/c Ventilator Type Not Reportable Vent Mode Not Reportable FiO2 2 Inspiratory Time Not Reportable PEEP Not Reportable Pressure Support Not Reportable Pressure Control Not Reportable EPAP Not Reportable IPAP Not Reportable BiPAP Not Reportable Sodium 131 L Potassium 4.3 Chloride 95 L Carbon Dioxide 32 Anion Gap 4 BUN 24 Creatinine 0.85 Est GFR ( Amer) 104.7 Est GFR (Non-Af Amer) 86.5 BUN/Creatinine Ratio 28.2 H Glucose 106 H Calcium 8.7 I/R: 83 y o m with h/o pulm fibrosis, recent A.flutter/A.fib a/w worsening SOB Acute IPF exacerbation versus PNA versus fluid overload Pt with acute hypoxic resp failure, no PE noted CT chest showed significant pulm fibrosis with drastic change from prior CT from [address] from [place] from May 2018 also showed significant fibrosis CT done at [facility] 1 day prior to hospitalization, worsening air space opacities and fibrotic changes compared to May 2018. O2 requirements improved since last night, able to tolerate 2-3L at rest and 4- 6L O2 with activity Will reassess today ABG on 2L O2 showed pO2 of 62. Desaturates on O2 however able to recover with rest Received high dose steroids for 3 days, changed to prednisone at 60 Will d/c with 60mg prednisone and c/w slow taper of 5 mg weekly Is on Pirfenidone for IPF, d/satnam 07/25 with concern for medication side effect ? Tikosyn side effect Less likely as per cardiology Plan to continue given concern with recurrence of arrythmia c/w pepcid for GI px while on steroids D/w pt, family at bedside
--- NOTE | 2018-07-27 17:39 | PN ---
Subjective Date of Service: 07/27/18 Interval History: Patient seen today. I did spend over 30 minutes with patient face to face alone in the room discussing with patient, family current condition, diagnosis and prognosis. Most questions were answered to the best of my ability. He was made aware the serious of his conditions and the need to be on Oxygen now to maintain good arterial oxygenation for saturations of 88-92%. Will continue him on 2-3 liter at rest and 4-6 liter with exertions Family History: Unchanged from Admission Objective Active Medications: Albuterol/Ipratropium (Duoneb (Albuterol 2.5 Mg/Ipratropium 0.5 Mg)) 1 neb INH [id number] AWAKE PRN PRN Reason: SOB/WHEEZING Apixaban (Eliquis*) 5 mg PO BID [facility] Last Admin: 07/27/18 07:33 Dose: 5 mg Cholecalciferol (Vitamin D Tab*) 800 unit PO DAILY [facility] Last Admin: 07/27/18 07:33 Dose: 800 unit Cyanocobalamin (Vitamin B12 Tab*) 1,000 mcg PO DAILY [facility] Last Admin: 07/27/18 07:33 Dose: 1,000 mcg Dofetilide (Tikosyn Cap*) 250 mcg PO BID [facility] Last Admin: 07/27/18 07:33 Dose: 250 mcg Famotidine (Pepcid Tab*) 20 mg PO DAILY PRN PRN Reason: INDIGESTION Last Admin: 07/22/18 20:30 Dose: 20 mg Fluticasone Propionate (Flonase Nasal [place] 50mcg*) 2 spray BOTH NARES DAILY [facility] Last Admin: 07/27/18 07:34 Dose: Not Given Guaifenesin (Mucinex*) 600 mg PO BID [facility] Last Admin: 07/27/18 07:33 Dose: 600 mg Latanoprost (Xalatan 0.005%*) 1 drop BOTH EYES BEDTIME [facility] Last Admin: 07/26/18 21:08 Dose: 1 drop Multivitamins/Minerals (Preservision Areds 2) 1 cap PO BID [facility] Last Admin: 07/27/18 07:32 Dose: 1 cap Prednisone (Deltasone Tab*) 60 mg PO DAILY [facility] Last Admin: 07/27/18 07:33 Dose: 60 mg Sodium Chloride (Sodium Chloride 0.65% Nasal [place]*) 1 spray BOTH NARES Q3H PRN PRN Reason: Dryness Last Admin: 07/27/18 07:32 Dose: 1 spray Vital Signs - 8 hr 07/27/18 07/27/18 07/27/18 11:25 11:28 11:29 Temperature 97.4 F Pulse Rate 46 Respiratory 20 20 24 Rate Blood Pressure 131/55 (mmHg) O2 Sat by Pulse 91 85 Oximetry 07/27/18 07/27/18 07/27/18 11:30 14:12 15:28 Temperature 98.2 F Pulse Rate 67 Respiratory 20 20 Rate Blood Pressure 128/76 (mmHg) O2 Sat by Pulse 92 94 96 Oximetry Oxygen Devices in Use Now: Nasal Cannula Appearance: awake, resting. pleasant and cooporative with examinations. Eyes: No Scleral Icterus, PERRLA Ears/Nose/Mouth/Throat: NL Teeth, Lips, Gums, Clear Oropharnyx, Mucous Membranes Moist Neck: NL Appearance and Movements; NL JVP, Trachea Midline Respiratory: Symmetrical Chest Expansion and Respiratory Effort, - - expiratory crackles. scaterred Cardiovascular: NL Sounds; No Murmurs; No JVD, No Edema Abdominal: NL Sounds; No Tenderness; No Distention Extremities: No Edema Skin: No Rash or Ulcers Neurological: Alert and Oriented x 3, NL Muscle Strength and Tone Result Diagrams: 07/25/18 05:44 07/27/18 07:14 Microbiology and Other Data: Laboratory Results - last 24 hr 07/26/18 07/26/18 07/26/18 07:55 09:06 16:55 Patient Temperature Not Reportable ABG pH 7.45 ABG pH (Temp Correct) Not Reportable ABG pCO2 42 ABG pCO2 (Temp Corrct Not Reportable ABG pO2 73 L ABG pO2 (Temp Correct Not Reportable ABG HCO3 28.5 ABG O2 Saturation 95.7 ABG Base Excess 4.7 H Respiration Rate Not Reportable O2 Delivery Device n/c Ventilator Type Not Reportable Vent Mode Not Reportable FiO2 2 Inspiratory Time Not Reportable PEEP Not Reportable Pressure Support Not Reportable Pressure Control Not Reportable EPAP Not Reportable IPAP Not Reportable BiPAP Not Reportable Sodium 129 L Potassium TNP 3.5 Chloride 93 L Carbon Dioxide 32 Anion Gap 4 BUN 27 H Creatinine 0.89 Est GFR ( Amer) 99.3 Est GFR (Non-Af Amer) 82.0 BUN/Creatinine Ratio 30.3 H Glucose 91 Calcium 9.0 Magnesium 2.2 Assess/Plan/Problems-Billing Assessment: 83 year old Male with history of pulmonary fibrosis, atrial fibrillation; who is inpatient for exacerbation of pulmonary fibrosis due to pna - Patient Problems (1) Pulmonary fibrosis Current Visit: No Status: Chronic Code(s): J84.10 - PULMONARY FIBROSIS, UNSPECIFIED SNOMED Code(s): 20568371 Comment: - Rapid progression on CT scan - Steriods transitioned to PO. Will need [address] Pollard will manage as outpatient when patient is discharge. - Continue supplemental O2. Wean to keep O2 sat of 92% - Discontinued Esbriet (2) Acute respiratory failure with hypoxia Current Visit: Yes Status: Acute Code(s): J96.01 - ACUTE RESPIRATORY FAILURE WITH HYPOXIA SNOMED Code(s): 01692622 Comment: - 2/2 to pulmonary fibrosis with exacerbation caused by CAP - Prednisone 60 mg PO daily. Will need 5 wk taper per Atul - Completed abx course - Esbriet discontinued as it was a newly started med before flare - will continue Tikosyn will defer to his outpatient provider for further recommendations. (3) A-fib Current Visit: No Status: Acute Code(s): I48.91 - UNSPECIFIED ATRIAL FIBRILLATION SNOMED Code(s): 33502588 Comment: - In RSR with occasional bradycardia - Continue tikosyn and eliquis - Patient has been noted to be bradycardic at rest and he reports this is baseline due to active lifestyle (4) DVT prophylaxis Current Visit: No Status: Acute Code(s): XTV4790 - SNOMED Code(s): 389399710 Comment: - On eliquis Status and Disposition: Inpatient, anticipate DC home when medically optimized.
[2018-07-27] MEDS: Latanoprost 0.005%* 2.5 ml BTL BOTH EYES SCH (21:23)
--- NOTE | 2018-07-28 00:52 | PN ---
Hospitalist Progress Note Date of Service: 07/28/18 HOSPITALIST ADDENDUM Called by RN for bradycardia high 30s, low 40s while sleeping, asymptomatic, normal BP. On Tykosin for Afib. Will continue to monitor.
[2018-07-28] MEDS: MULTIVITAMINS AREDS2 PO SCH ×2 (10:56→21:39)
[2018-07-28] MEDS: Fluticasone NASAL SPRAY 50MCG* 16 gm SPRAY BTL BOTH NARES SCH (10:56)
[2018-07-28] MEDS: MINS PO SCH ×2 (10:56→21:39)
[2018-07-28] MEDS: Cyanocobalamin TAB* 500 MCG PO SCH (10:57)
[2018-07-28] MEDS: Cholecalciferol TAB* 400 UNIT PO SCH (10:57)
[2018-07-28] MEDS: Apixaban* 5 MG TAB PO SCH ×2 (10:58→21:37)
[2018-07-28] MEDS: Dofetilide CAP* 250 MCG PO SCH (10:59)
[2018-07-28] MEDS: Famotidine TAB* 20 MG PO SCH (10:59)
[2018-07-28] MEDS: predniSONE TAB* 20 MG PO SCH (10:59)
[2018-07-28] MEDS: guaiFENesin ER TAB 600 MG PO SCH ×2 (11:00→21:37)
--- NOTE | 2018-07-28 15:53 | PN ---
Subjective Date of Service: 07/28/18 Interval History: Patient seen today! Awake. Alert. He was in the bathroom today and he felt increase shortness of breath on 6 liters. I was able to see the patient in the room, he was on 8 liter nasal cannula hyperventilating, and panicking. I did ask the staff to obtain the forehead oximetry and his saturation when I went back to check on him was 100% and I was able to wean him down to 2.5 liter and he maintained 98%. I kept him on 2.5 liters and i advised to only use forehead oximetry. Event from last night reviewed. He did have bradycardia. sinus in the mid 30's! currently in the 50's. I briefly discussed with Dr. Tirado and advised to lower his tikosyn at night to 125 mcg (from 250 mcg) given his bradycardia. And in am to contact his primary auditor/quality before giving the tikosyn 250 mcg in am. Family History: Unchanged from Admission Social History: Unchanged from Admission Objective Active Medications: Albuterol/Ipratropium (Duoneb (Albuterol 2.5 Mg/Ipratropium 0.5 Mg)) 1 neb INH [id number] AWAKE PRN PRN Reason: SOB/WHEEZING Apixaban (Eliquis*) 5 mg PO BID [facility] Last Admin: 07/28/18 10:58 Dose: 5 mg Cholecalciferol (Vitamin D Tab*) 800 unit PO DAILY [facility] Last Admin: 07/28/18 10:57 Dose: 800 unit Cyanocobalamin (Vitamin B12 Tab*) 1,000 mcg PO DAILY [facility] Last Admin: 07/28/18 10:57 Dose: 1,000 mcg Dofetilide (Tikosyn Cap*) 250 mcg PO BID [facility] Last Admin: 07/28/18 10:59 Dose: 250 mcg Famotidine (Pepcid Tab*) 20 mg PO DAILY [facility] Last Admin: 07/28/18 10:59 Dose: 20 mg Fluticasone Propionate (Flonase Nasal [place] 50mcg*) 2 spray BOTH NARES DAILY [facility] Last Admin: 07/28/18 10:56 Dose: 2 spray Guaifenesin (Mucinex*) 600 mg PO BID [facility] Last Admin: 07/28/18 11:00 Dose: 600 mg Latanoprost (Xalatan 0.005%*) 1 drop BOTH EYES BEDTIME [facility] Last Admin: 07/27/18 21:23 Dose: 1 drop Multivitamins/Minerals (Preservision Areds 2) 1 cap PO BID [facility] Last Admin: 07/28/18 10:56 Dose: 1 cap Prednisone (Deltasone Tab*) 60 mg PO DAILY [facility] Last Admin: 07/28/18 10:59 Dose: 60 mg Sodium Chloride (Sodium Chloride 0.65% Nasal [place]*) 1 spray BOTH NARES Q3H PRN PRN Reason: Dryness Last Admin: 07/27/18 07:32 Dose: 1 spray Vital Signs - 8 hr 07/28/18 07/28/18 07/28/18 08:00 10:55 11:01 Temperature 97.3 F Pulse Rate 64 70 Respiratory 16 18 Rate Blood Pressure 112/76 106/40 (mmHg) O2 Sat by Pulse 94 87 Oximetry 07/28/18 11:47 Temperature 97.4 F Pulse Rate 52 Respiratory 20 Rate Blood Pressure 97/47 (mmHg) O2 Sat by Pulse 97 Oximetry Oxygen Devices in Use Now: Nasal Cannula Appearance: Awake, ALert. No distress when examined Eyes: No Scleral Icterus Ears/Nose/Mouth/Throat: NL Teeth, Lips, Gums, Clear Oropharnyx Neck: NL Appearance and Movements; NL JVP Respiratory: Symmetrical Chest Expansion and Respiratory Effort, - - fines crackles diffuse Cardiovascular: - - regular, bradycardia Skin: No Rash or Ulcers Neurological: Alert and Oriented x 3 Result Diagrams: 07/25/18 05:44 07/27/18 07:14 Microbiology and Other Data: Laboratory Results - last 24 hr 07/26/18 07/26/18 07/26/18 07:55 09:06 16:55 Patient Temperature Not Reportable ABG pH 7.45 ABG pH (Temp Correct) Not Reportable ABG pCO2 42 ABG pCO2 (Temp Corrct Not Reportable ABG pO2 73 L ABG pO2 (Temp Correct Not Reportable ABG HCO3 28.5 ABG O2 Saturation 95.7 ABG Base Excess 4.7 H Respiration Rate Not Reportable O2 Delivery Device n/c Ventilator Type Not Reportable Vent Mode Not Reportable FiO2 2 Inspiratory Time Not Reportable PEEP Not Reportable Pressure Support Not Reportable Pressure Control Not Reportable EPAP Not Reportable IPAP Not Reportable BiPAP Not Reportable Sodium 129 L Potassium TNP 3.5 Chloride 93 L Carbon Dioxide 32 Anion Gap 4 BUN 27 H Creatinine 0.89 Est GFR ( Amer) 99.3 Est GFR (Non-Af Amer) 82.0 BUN/Creatinine Ratio 30.3 H Glucose 91 Calcium 9.0 Magnesium 2.2 Assess/Plan/Problems-Billing Assessment: 83 year old Male with history of pulmonary fibrosis, atrial fibrillation; who is inpatient for exacerbation of pulmonary fibrosis due to pna - Patient Problems (1) Pulmonary fibrosis Current Visit: No Status: Chronic Code(s): J84.10 - PULMONARY FIBROSIS, UNSPECIFIED SNOMED Code(s): 22870440 Comment: - Rapid progression on CT scan - Steriods transitioned to PO. Will need [address] Pollard will manage as outpatient when patient is discharge. Currently on 60 mg yasmin taper to 55 mg in am - Continue supplemental O2. Wean to keep O2 sat of 92% 2-3 liters at rest. 6 Liters with exertions - Discontinued Esbriet (2) Acute respiratory failure with hypoxia Current Visit: Yes Status: Acute Code(s): J96.01 - ACUTE RESPIRATORY FAILURE WITH HYPOXIA SNOMED Code(s): 61409671 Comment: - 2/2 to pulmonary fibrosis with exacerbation caused by CAP - Prednisone 60 mg PO daily, change to 55 mg in am. Will need 5 wk taper per Atul - Completed abx course - Esbriet discontinued as it was a newly started med before flare - will continue Tikosyn will defer to his outpatient provider for further recommendations, however given his significant bradycardia, I contacted Dr. Tirado and he recommended to decrease his pm tikosyn to 125 mcg tonight (already got his 250 mcg this morning)! And in am to contact his primary auditor/quality to discuss further taper to 125 mcg bid. (3) A-fib Current Visit: No Status: Acute Code(s): I48.91 - UNSPECIFIED ATRIAL FIBRILLATION SNOMED Code(s): 51640313 Comment: - In RSR with occasional bradycardia last night 07/27/18 he dropped to mid to high 30's - Continue tikosyn and eliquis - I will continue Tikosyn will defer to his outpatient provider for further recommendations, however; given his significant bradycardia as documented on , I contacted Dr. Tirado and he recommended to decrease his pm tikosyn to 125 mcg tonight 07/28/18 (already got his 250 mcg this morning)! And in am to contact his primary auditor/quality to discuss further taper to 125 mcg bid. (4) DVT prophylaxis Current Visit: No Status: Acute Code(s): UIE6158 - SNOMED Code(s): 534729990 Comment: - On eliquis Status and Disposition: Inpatient, anticipate DC home when medically optimized.
--- NOTE | 2018-07-28 18:20 | PN ---
Progress Note - Progress Note Date of Service: 07/28/18 - Pulm f/u note Note: Pt seen and examined at bedside. Pt reports feeling worse today. He also reports not able to sleep well last night. Pt reports having felt dizzy when he returned from rest room Active Medications Generic Name Dose Route Start Last Admin Trade Name Freq PRN Reason Stop Dose Admin Albuterol/Ipratropium 1 neb 07/20/18 15:13 Duoneb (Albuterol 2.5 Mg/Ipratropium 0.5 Mg) INH [id number] AWAKE PRN SOB/WHEEZING Apixaban 5 mg 07/18/18 09:00 07/28/18 10:58 Eliquis* PO 5 mg BID [facility] Administration Cholecalciferol 800 unit 07/18/18 08:00 07/28/18 10:57 Vitamin D Tab* PO 800 unit DAILY [facility] Administration Cyanocobalamin 1,000 mcg 07/18/18 09:00 07/28/18 10:57 Vitamin B12 Tab* PO 1,000 mcg DAILY [facility] Administration Dofetilide 250 mcg 07/29/18 09:00 Tikosyn Cap* PO DAILY [facility] Dofetilide 125 mcg 07/28/18 21:00 Tikosyn Cap* PO BEDTIME [facility] Famotidine 20 mg 07/28/18 09:00 07/28/18 10:59 Pepcid Tab* PO 20 mg DAILY [facility] Administration Fluticasone Propionate 2 spray 07/23/18 12:00 07/28/18 10:56 Flonase Nasal [place] 50mcg* BOTH NARES 2 spray DAILY [facility] Administration Guaifenesin 600 mg 07/23/18 12:00 07/28/18 11:00 Mucinex* PO 600 mg BID [facility] Administration Latanoprost 1 drop 07/25/18 21:00 07/27/18 21:23 Xalatan 0.005%* BOTH EYES 1 drop BEDTIME [facility] Administration Multivitamins/Minerals 1 cap 07/18/18 09:00 07/28/18 10:56 Preservision Areds 2 PO 1 cap BID [facility] Administration Prednisone 60 mg 07/26/18 17:00 07/28/18 10:59 Deltasone Tab* PO 07/28/18 23:59 60 mg DAILY [facility] Administration Prednisone 55 mg 07/29/18 17:00 Deltasone Tab* PO 1700 [facility] Sodium Chloride 1 spray 07/25/18 22:06 07/27/18 07:32 Sodium Chloride 0.65% Nasal [place]* BOTH NARES 1 spray Q3H PRN Administration Dryness Vital Signs Temp Pulse Resp BP Pulse Ox 97.3 F 55 24 115/63 97 07/28/18 16:45 07/28/18 16:45 07/28/18 16:45 07/28/18 16:45 07/28/18 16:45 O/E: pt in NAD HEENT: PERRLA, no JVD Lungs: Diminished air entry, crackles at bases CVS: S1, S2+, bradycardia Abd: Soft, BS+ Ext: Normal ROM Neuro: NO focal deficits Skin: Mild rash on rt knuckles 07/26/18 07/26/18 07/26/18 07:55 09:06 16:55 Patient Temperature Not Reportable ABG pH 7.45 ABG pH (Temp Correct) Not Reportable ABG pCO2 42 ABG pCO2 (Temp Corrct Not Reportable ABG pO2 73 L ABG pO2 (Temp Correct Not Reportable ABG HCO3 28.5 ABG O2 Saturation 95.7 ABG Base Excess 4.7 H Respiration Rate Not Reportable O2 Delivery Device n/c Ventilator Type Not Reportable Vent Mode Not Reportable FiO2 2 Inspiratory Time Not Reportable PEEP Not Reportable Pressure Support Not Reportable Pressure Control Not Reportable EPAP Not Reportable IPAP Not Reportable BiPAP Not Reportable Sodium 129 L Potassium TNP 3.5 Chloride 93 L Carbon Dioxide 32 Anion Gap 4 BUN 27 H Creatinine 0.89 Est GFR ( Amer) 99.3 Est GFR (Non-Af Amer) 82.0 BUN/Creatinine Ratio 30.3 H Glucose 91 Calcium 9.0 Magnesium 2.2 07/27/18 07:14 Patient Temperature ABG pH ABG pH (Temp Correct) ABG pCO2 ABG pCO2 (Temp Corrct ABG pO2 ABG pO2 (Temp Correct ABG HCO3 ABG O2 Saturation ABG Base Excess Respiration Rate O2 Delivery Device Ventilator Type Vent Mode FiO2 Inspiratory Time PEEP Pressure Support Pressure Control EPAP IPAP BiPAP Sodium 131 L Potassium 4.3 Chloride 95 L Carbon Dioxide 32 Anion Gap 4 BUN 24 Creatinine 0.85 Est GFR ( Amer) 104.7 Est GFR (Non-Af Amer) 86.5 BUN/Creatinine Ratio 28.2 H Glucose 106 H Calcium 8.7 Magnesium CXR 07/28 was personally reviewed- Improvement of air space consolidation at rt base, interstitial opacities persist I/R: 83 y o m with h/o pulm fibrosis, recent A.flutter/A.fib a/w worsening SOB Acute IPF exacerbation versus PNA versus fluid overload Pt with acute hypoxic resp failure, no PE noted CT chest showed significant pulm fibrosis with drastic change from prior CT from [address] from [place] from May 2018 also showed significant fibrosis CT done at [facility] 1 day prior to hospitalization, worsening air space opacities and fibrotic changes compared to May 2018. Rpt CXR shows slight improvement O2 requirements improved since last night, able to tolerate 2-3L at rest and 4- 6L O2 with activity Will reassess today ABG on 2L O2 showed pO2 of 62. Desaturates on O2 however able to recover with rest Received high dose steroids for 3 days, changed to prednisone at 60 Will d/c with 60mg prednisone and c/w slow taper of 5 mg weekly Is on Pirfenidone for IPF, d/[place] 07/25 with concern for medication side effect ? Tikosyn side effect Less likely as per cardiology Plan to continue given concern with recurrence of arrythmia Bradycardia last night, Tikosyn lowered for tonight c/w pepcid for GI px while on steroids y D/w pt at bedside D/w Dr Velasco
[2018-07-28] MEDS: Dofetilide CAP* 125 MCG PO SCH (21:38)
[2018-07-28] MEDS: Latanoprost 0.005%* 2.5 ml BTL BOTH EYES SCH (21:39)
--- NOTE | 2018-07-28 22:04 | DS ---
CC: Dr. Valentina Pritchard; Dr. Emiliana Pollard; Dr. Thony Vidales * INTERIM DISCHARGE SUMMARY: DATE OF ADMISSION: 07/18/18 DATE OF DISCHARGE: Potential discharge, 07/29/18. Interim discharge summary, pending final approval by the attending on 07/29/18 caring for this patient. PRIMARY CARE PROVIDER: Dr. Valentina Pritchard. HOSPITAL COURSE: Patient presented to [facility] on 07/18/18 for persistent dyspnea, worsening on exertion with underlying hypoxia of recent deterioration of his pulmonary fibrosis. He has history of pulmonary fibrosis diagnosed for 3 plus years and recently has been dealing with underlying cardiac arrhythmia and patient was recently placed on Tikosyn from which achieved successful chemical cardioversion and maintaining of his sinus rhythm. He presented on 07/18/18 for the dyspnea and shortness of breath. He was admitted to the medical service and was started on oxygen therapy to maintain saturation above 90%. It was noted that his pulse saturation was requiring a very large amount of oxygen to maintain his saturation despite 8 L at rest. He was desatting quickly with minimal exertion. It was decided after discussion with his lab scientist in [place] to discontinue his new medication of pulmonary fibrosis, Esbriet 801 mg 3 times a day as the potential cause of his deterioration of his respiratory symptoms. I evaluated the patient on his hospital day #9 on 07/27/18 and with speaking with the patient and family, I was somehow not convinced with his pulse oximetry in the low 80s as I was speaking with him giving the normal respiratory during the interview. We obtained a blood gas at 2 L about an hour and the blood gas did confirm that his saturation was 95.7 on 2 L and the finger at that time was corresponding to the mid to low 80s, hence I explained to staff and patient and family not weigh too much effort on the finger pulse oximetry as it was for some reason not picking up an accurate pulse oximetry and we placed oximetry over his forehead and his oximetry registered 100% on 6 L. We were able to wean him down to 2.5 where he was maintaining saturation of 98%. Both the patient and family did feel significantly better with this evaluation. I did explain to them that they need to be very alert and subjective to his symptoms versus only the pulse oximetry read and at the same time to further followup with any further recommendation with his lab scientist both locally and in [facility]. He was made aware that at this time he will need to go on oxygen at 3 L at rest and 6 L with exertion and he is to continue the prednisone 60 mg taper by 5 mg every week. He is to start 55 mg on 07/29/18. Overall, I deem the patient is stable to be released on 07/29/18 with chronic home O2 delivery. Also during his hospital stay, it was noted that his pulse rate drops to the mid 30s to high 30s at night while he is asleep. He is on Tikosyn 250 mcg b.i.d. I did discuss with cardiology covering for Dr. Vidales over the phone who recommended to decrease the night dose of Tikosyn to 125 mcg this evening on 07/28/18. Discussed with Dr. Vidales the patient's primary verification manager in the a.m. and decide whether or not the patient will need further adjustment of his Tikosyn. For now, I changed his Tikosyn to 250 mcg in the morning, 125 mcg in the evening. The patient was deemed stable for discharge. Discharge planning was ordered and we will sign out the patient for the coming physician in the morning for further adjustment of his medication upon discharge and pending his need from the program planner. For now, his discharge medications are deemed to be as follows pending final approval from his discharging physician: 1. Eliquis 5 mg b.i.d. to continue. 2. Vitamin D 1000 mcg daily. 3. Tikosyn pending final approval from his discharging physician 125 mcg at bedtime, 250 mcg in the morning. Need to discuss with the primary verification manager for the final approval of Tikosyn discharge dose. 4. Famotidine 20 mg daily. 5. Xalatan eye drop at night. 6. Prednisone 55 mg daily for 1 week, then taper down by 5 mg each week until he is told otherwise by his lab scientist and to follow up with Dr. Pollard. 7. Continue his PreserVision. 8. Continue his Tylenol. 9. Continue his calcium supplement. 10. Copper supplement. 11. Famotidine 40 mg daily. 12. Magnesium 50 mcg daily. 13. Metoprolol was discontinued. I will defer that to his verification manager. 14. Multivitamin continue. 15. Discontinue his pirfenidone. DISCHARGE FINAL DIAGNOSES: 1. Pulmonary fibrosis, progressive. 2. Acute respiratory failure with hypoxia secondary to pulmonary fibrosis. 3. Atrial fibrillation, in sinus rhythm. DISCHARGE RECOMMENDATION: The patient is to be discharged on oxygen 3 L at rest , 6 L with exertion. Follow up with the verification manager and I decreased to 125 mcg at night, 250 mcg during the day. Patient is to have further clarification on his dose with his primary verification manager in the morning, 07/29/[address] Vidales. Take prednisone as described 5 mg weekly. To remain on GI prophylaxis while he is on steroid. [id number]/CPS #: [id number] MTDD
[2018-07-29] MEDS: Apixaban* 5 MG TAB PO SCH ×2 (08:48→21:25)
[2018-07-29] MEDS: Cyanocobalamin TAB* 500 MCG PO SCH (08:48)
[2018-07-29] MEDS: Fluticasone NASAL SPRAY 50MCG* 16 gm SPRAY BTL BOTH NARES SCH (08:48)
[2018-07-29] MEDS: Dofetilide CAP* 250 MCG PO SCH (08:48)
[2018-07-29] MEDS: Famotidine TAB* 20 MG PO SCH (08:48)
[2018-07-29] MEDS: Cholecalciferol TAB* 400 UNIT PO SCH (08:48)
[2018-07-29] MEDS: guaiFENesin ER TAB 600 MG PO SCH ×2 (08:48→21:25)
[2018-07-29] MEDS: MINS PO SCH ×2 (08:50→21:25)
[2018-07-29] MEDS: MULTIVITAMINS AREDS2 PO SCH ×2 (08:50→21:25)
--- NOTE | 2018-07-29 11:47 | PN ---
Subjective Date of Service: 07/29/18 Interval History: Patient has no complaints. He feels OK with O2 at 2.5 l/m when at rest and 6 l/ m when ambulating. Walked on nursing unit last night. No new coughing, fever. Aware of plan for possible pulmonary acute rehab starting tomorrow, vs going home and waiting for rehab. Daughter is coming from [place] tomorrow. Family History: Unchanged from Admission Social History: Unchanged from Admission Past Medical History: Unchanged from Admission Objective Active Medications: Albuterol/Ipratropium (Duoneb (Albuterol 2.5 Mg/Ipratropium 0.5 Mg)) 1 neb INH [id number] AWAKE PRN PRN Reason: SOB/WHEEZING Apixaban (Eliquis*) 5 mg PO BID [facility] Last Admin: 07/29/18 08:48 Dose: 5 mg Cholecalciferol (Vitamin D Tab*) 800 unit PO DAILY [facility] Last Admin: 07/29/18 08:48 Dose: 800 unit Cyanocobalamin (Vitamin B12 Tab*) 1,000 mcg PO DAILY [facility] Last Admin: 07/29/18 08:48 Dose: 1,000 mcg Dofetilide (Tikosyn Cap*) 250 mcg PO DAILY [facility] Last Admin: 07/29/18 08:48 Dose: 250 mcg Dofetilide (Tikosyn Cap*) 125 mcg PO BEDTIME [facility] Last Admin: 07/28/18 21:38 Dose: 125 mcg Famotidine (Pepcid Tab*) 20 mg PO DAILY [facility] Last Admin: 07/29/18 08:48 Dose: 20 mg Fluticasone Propionate (Flonase Nasal [place] 50mcg*) 2 spray BOTH NARES DAILY [facility] Last Admin: 07/29/18 08:48 Dose: 2 spray Guaifenesin (Mucinex*) 600 mg PO BID [facility] Last Admin: 07/29/18 08:48 Dose: 600 mg Latanoprost (Xalatan 0.005%*) 1 drop BOTH EYES BEDTIME [facility] Last Admin: 07/28/18 21:39 Dose: 1 drop Multivitamins/Minerals (Preservision Areds 2) 1 cap PO BID [facility] Last Admin: 07/29/18 08:50 Dose: 1 cap Prednisone (Deltasone Tab*) 55 mg PO 1700 [facility] Sodium Chloride (Sodium Chloride 0.65% Nasal [place]*) 1 spray BOTH NARES Q3H PRN PRN Reason: Dryness Last Admin: 07/27/18 07:32 Dose: 1 spray Vital Signs - 8 hr 07/29/18 07/29/18 07/29/18 04:46 08:00 09:54 Temperature 36.4 C Pulse Rate 58 Respiratory 20 20 Rate Blood Pressure 124/60 (mmHg) O2 Sat by Pulse 98 94 97 Oximetry Oxygen Devices in Use Now: Nasal Cannula Appearance: alert, no distress Eyes: No Scleral Icterus Ears/Nose/Mouth/Throat: Clear Oropharnyx Neck: No Thyroid Enlargement, Masses Respiratory: - - dry rales bilat bases Cardiovascular: NL Sounds; No Murmurs; No JVD, RRR Abdominal: NL Sounds; No Tenderness; No Distention Extremities: No Edema Neurological: Alert and Oriented x 3 Lines/Tubes/Other Access: Clean, Dry and Intact Peripheral IV Nutrition: Taking PO's Result Diagrams: 07/25/18 05:44 07/27/18 07:14 Assess/Plan/Problems-Billing Assessment: 83 year old Male with history of pulmonary fibrosis, atrial fibrillation; who is inpatient for exacerbation of pulmonary fibrosis due to pneumonia. - Patient Problems (1) Acute respiratory failure with hypoxia Current Visit: Yes Status: Acute Priority: High Code(s): J96.01 - ACUTE RESPIRATORY FAILURE WITH HYPOXIA SNOMED Code(s): 10019296 Comment: - 2/2 to pulmonary fibrosis with exacerbation caused by CAP vs fluid overload - Prednisone at 55 mg in am. Appreciate consult by Dr. Atul alvarenga as it was a newly started med before flare, know to occasionally cause worsening. (2) Atrial flutter Current Visit: No Status: Acute Priority: Medium Code(s): I48.92 - UNSPECIFIED ATRIAL FLUTTER SNOMED Code(s): 3035990 Comment: - in NSR now - will continue Tikosyn at lower doses, will discuss further lowering with Dr. Vidales. - no need for telemetry (3) Pneumonia Current Visit: Yes Status: Acute Code(s): J18.9 - PNEUMONIA, UNSPECIFIED ORGANISM SNOMED Code(s): 986413439 Comment: - Completed Doxycycline (4) DVT prophylaxis Current Visit: No Status: Acute Priority: Low Code(s): ZBO1467 - SNOMED Code(s): 556126515 Comment: - On eliquis Status and Disposition: Inpatient, anticipate DC to rehab in 1-2 days.
[2018-07-29] MEDS: predniSONE TAB* 10 MG PO SCH (16:45)
[2018-07-29] MEDS: Dofetilide CAP* 125 MCG PO SCH (21:25)
[2018-07-29] MEDS: Latanoprost 0.005%* 2.5 ml BTL BOTH EYES SCH (21:25)
[2018-07-30] MEDS: Fluticasone NASAL SPRAY 50MCG* 16 gm SPRAY BTL BOTH NARES SCH (09:59)
[2018-07-30] MEDS: MULTIVITAMINS AREDS2 PO SCH ×2 (09:59→21:58)
[2018-07-30] MEDS: MINS PO SCH ×2 (09:59→21:58)
[2018-07-30] MEDS: Cholecalciferol TAB* 400 UNIT PO SCH (10:02)
[2018-07-30] MEDS: Apixaban* 5 MG TAB PO SCH ×2 (10:03→21:57)
[2018-07-30] MEDS: Dofetilide CAP* 250 MCG PO SCH ×2 (10:03→22:04)
[2018-07-30] MEDS: Cyanocobalamin TAB* 500 MCG PO SCH (10:04)
[2018-07-30] MEDS: guaiFENesin ER TAB 600 MG PO SCH ×2 (10:04→21:57)
[2018-07-30] MEDS: Famotidine TAB* 20 MG PO SCH (10:04)
--- NOTE | 2018-07-30 15:36 | PN ---
Subjective Date of Service: 07/30/18 Interval History: Patient has no new complaints. Is ambulating in [place] w/ 6 l/min O2. He has been on Esbriet since January, so he does not think this caused the fibrosis exacerbation. Spoke with Dr. Vidales, he feels patient began to decompensate pulmonary-alonzo prior to start Tikosyn, so he feels this is not the cause. He did not advise lower dose Tikosyn, advised usual dose, or stop altogether to see if lungs improve. Family History: Unchanged from Admission Social History: Unchanged from Admission Past Medical History: Unchanged from Admission Objective Active Medications: Albuterol/Ipratropium (Duoneb (Albuterol 2.5 Mg/Ipratropium 0.5 Mg)) 1 neb INH [id number] AWAKE PRN PRN Reason: SOB/WHEEZING Apixaban (Eliquis*) 5 mg PO BID [facility] Last Admin: 07/30/18 10:03 Dose: 5 mg Cholecalciferol (Vitamin D Tab*) 800 unit PO DAILY [facility] Last Admin: 07/30/18 10:02 Dose: 800 unit Cyanocobalamin (Vitamin B12 Tab*) 1,000 mcg PO DAILY [facility] Last Admin: 07/30/18 10:04 Dose: 1,000 mcg Dofetilide (Tikosyn Cap*) 250 mcg PO BID [facility] Famotidine (Pepcid Tab*) 20 mg PO DAILY [facility] Last Admin: 07/30/18 10:04 Dose: 20 mg Fluticasone Propionate (Flonase Nasal [place] 50mcg*) 2 spray BOTH NARES DAILY [facility] Last Admin: 07/30/18 09:59 Dose: 2 spray Guaifenesin (Mucinex*) 600 mg PO BID [facility] Last Admin: 07/30/18 10:04 Dose: 600 mg Latanoprost (Xalatan 0.005%*) 1 drop BOTH EYES BEDTIME [facility] Last Admin: 07/29/18 21:25 Dose: 1 drop Multivitamins/Minerals (Preservision Areds 2) 1 cap PO BID [facility] Last Admin: 07/30/18 09:59 Dose: 1 cap Prednisone (Deltasone Tab*) 55 mg PO 1700 [facility] Last Admin: 07/29/18 16:45 Dose: 55 mg Sodium Chloride (Sodium Chloride 0.65% Nasal [place]*) 1 spray BOTH NARES Q3H PRN PRN Reason: Dryness Last Admin: 07/27/18 07:32 Dose: 1 spray Vital Signs - 8 hr 07/30/18 07/30/18 10:00 12:00 Temperature 37.1 C Pulse Rate 50 Respiratory 18 18 Rate Blood Pressure 109/54 (mmHg) O2 Sat by Pulse 97 Oximetry Oxygen Devices in Use Now: Nasal Cannula Appearance: alert, no distress Ears/Nose/Mouth/Throat: Clear Oropharnyx Neck: Trachea Midline Respiratory: - - rales at bases bilat Cardiovascular: NL Sounds; No Murmurs; No JVD, RRR Abdominal: NL Sounds; No Tenderness; No Distention Extremities: No Edema Neurological: Alert and Oriented x 3 Lines/Tubes/Other Access: Clean, Dry and Intact Peripheral IV Nutrition: Taking PO's Result Diagrams: 07/25/18 05:44 07/27/18 07:14 Assess/Plan/Problems-Billing Assessment: 83 year old Male with history of pulmonary fibrosis, atrial fibrillation; who is inpatient for exacerbation of pulmonary fibrosis due to pneumonia. - Patient Problems (1) Acute respiratory failure with hypoxia Current Visit: Yes Status: Acute Priority: High Code(s): J96.01 - ACUTE RESPIRATORY FAILURE WITH HYPOXIA SNOMED Code(s): 58402824 Comment: - 2/2 to pulmonary fibrosis with exacerbation caused by CAP vs fluid overload - Prednisone at 55 mg in am. Appreciate consult by Dr. Pollard - Dalilaiet discontinued as it was a newly started med before flare, know to occasionally cause worsening. - Plan is for [facility] Acute rehab in 2-3 days, vs home w/ VNS/O2. (2) Atrial flutter Current Visit: No Status: Acute Priority: Medium Code(s): I48.92 - UNSPECIFIED ATRIAL FLUTTER SNOMED Code(s): 8555774 Comment: - in NSR now - will continue Tikosyn at outpatient doses, only had 3/4 dose for 2 days. - no need for telemetry (3) Pneumonia Current Visit: Yes Status: Acute Code(s): J18.9 - PNEUMONIA, UNSPECIFIED ORGANISM SNOMED Code(s): 624346050 Comment: - Completed Doxycycline (4) DVT prophylaxis Current Visit: No Status: Acute Priority: Low Code(s): SML0626 - SNOMED Code(s): 974793874 Comment: - On eliquis Status and Disposition: Inpatient, anticipate DC to rehab in 1-2 days.
--- NOTE | 2018-07-30 16:21 | PN ---
Progress Note - Progress Note Date of Service: 07/30/18 - Pulm f/u Note: Pt seen and examined at bedside. Pt reports that he has started to feel better over the past 2 days eventhough he is concerned regarding slow improvement. Denies cough or sputum production. No acute events o/n Active Medications Generic Name Dose Route Start Last Admin Trade Name Freq PRN Reason Stop Dose Admin Albuterol/Ipratropium 1 neb 07/20/18 15:13 Duoneb (Albuterol 2.5 Mg/Ipratropium 0.5 Mg) INH [id number] AWAKE PRN SOB/WHEEZING Apixaban 5 mg 07/18/18 09:00 07/30/18 10:03 Eliquis* PO 5 mg BID BIN Administration Cholecalciferol 800 unit 07/18/18 08:00 07/30/18 10:02 Vitamin D Tab* PO 800 unit DAILY BIN Administration Cyanocobalamin 1,000 mcg 07/18/18 09:00 07/30/18 10:04 Vitamin B12 Tab* PO 1,000 mcg DAILY BIN Administration Dofetilide 250 mcg 07/30/18 21:00 Tikosyn Cap* PO BID BIN Famotidine 20 mg 07/28/18 09:00 07/30/18 10:04 Pepcid Tab* PO 20 mg DAILY BIN Administration Fluticasone Propionate 2 spray 07/23/18 12:00 07/30/18 09:59 Flonase Nasal [place] 50mcg* BOTH NARES 2 spray DAILY BIN Administration Guaifenesin 600 mg 07/23/18 12:00 07/30/18 10:04 Mucinex* PO 600 mg BID BIN Administration Latanoprost 1 drop 07/25/18 21:00 07/29/18 21:25 Xalatan 0.005%* BOTH EYES 1 drop BEDTIME BIN Administration Multivitamins/Minerals 1 cap 07/18/18 09:00 07/30/18 09:59 Preservision Areds 2 PO 1 cap BID BIN Administration Prednisone 55 mg 07/29/18 17:00 07/29/18 16:45 Deltasone Tab* PO 55 mg 1700 BIN Administration Sodium Chloride 1 spray 07/25/18 22:06 07/27/18 07:32 Sodium Chloride 0.65% Nasal [place]* BOTH NARES 1 spray Q3H PRN Administration Dryness Vital Signs Temp Pulse Resp BP Pulse Ox 98.7 F 50 18 109/54 97 07/30/18 12:00 07/30/18 12:00 07/30/18 12:00 07/30/18 12:00 07/30/18 12:00 O/E: pt in NAD HEENT: TWYLARLA, no JVD Lungs: Diminished air entry, crackles at bases CVS: S1, S2+, bradycardia Abd: Soft, BS+ Ext: Normal ROM Neuro: NO focal deficits Skin: Mild rash on rt knuckles Labs: No new labs CXR 07/28 - Improvement of air space consolidation at rt base, interstitial opacities persist I/R: 83 y o m with h/o pulm fibrosis, recent A.flutter/A.fib a/w worsening SOB Acute IPF exacerbation versus PNA versus fluid overload Pt with acute hypoxic resp failure, no PE noted CT chest showed significant pulm fibrosis with drastic change from prior CT from [address] from [place] from May 2018 also showed significant fibrosis CT done at [facility] 1 day prior to hospitalization, worsening air space opacities and fibrotic changes compared to May 2018. Rpt CXR shows slight improvement O2 requirements improved since last night, able to tolerate 2-3L at rest and 4- 6L O2 with activity Less desaturations with activity Received high dose steroids for 3 days, changed to prednisone at 60 which was tapered to 55mg c/w slow taper of 5 mg weekly Is on Pirfenidone for IPF, d/satnam 07/25 with concern for medication side effect ? Tikosyn side effect Less likely as per cardiology Night time dose was lowered to half given bradycardia at night Plan to continue given concern with recurrence of arrythmia c/w pepcid for GI px while on steroids D/w pt at bedside
[2018-07-30] MEDS: predniSONE TAB* 10 MG PO SCH (17:11)
[2018-07-30] MEDS: Latanoprost 0.005%* 2.5 ml BTL BOTH EYES SCH (21:58)
[2018-07-31] MEDS: Cholecalciferol TAB* 400 UNIT PO SCH (09:27)
[2018-07-31] MEDS: Cyanocobalamin TAB* 500 MCG PO SCH (09:29)
[2018-07-31] MEDS: Famotidine TAB* 20 MG PO SCH (09:29)
[2018-07-31] MEDS: guaiFENesin ER TAB 600 MG PO SCH ×2 (09:29→20:51)
[2018-07-31] MEDS: Apixaban* 5 MG TAB PO SCH ×2 (09:29→20:51)
[2018-07-31] MEDS: Fluticasone NASAL SPRAY 50MCG* 16 gm SPRAY BTL BOTH NARES SCH (09:30)
[2018-07-31] MEDS: MINS PO SCH ×2 (09:30→20:52)
[2018-07-31] MEDS: Dofetilide CAP* 250 MCG PO SCH ×2 (09:30→20:51)
[2018-07-31] MEDS: MULTIVITAMINS AREDS2 PO SCH ×2 (09:30→20:52)
--- NOTE | 2018-07-31 15:57 | PN ---
Subjective Date of Service: 07/31/18 Interval History: Pt seen and examined. Meds and labs reviewed. CC: Pt extremely anxious about being on O2 when he wasnt on it until recently. Reviewed data with patient. Pt thankful his clinical course has been explained to his satisfaction. ROS: Denied BENDER/dizziness, F/C, N/V, CP, SOB, increased cough, sputum production , abd pain, diarrhea, constipation, dysuria, myalgias, arthralgias, throat pain , and new skin lesions. The rest of the 14 point ROS are unremarkable. PHYSICAL EXAM: GEN APPEARANCE: Awake, not in acute distress HEENT: NC/AT, PERRLA, moist oral mucosa, (-) throat erythema NECK: Soft, supple, (-) cervical LAD, (-)JVD HEART: S1S2 WNL, RRR, No MRG CHEST: CTA, BL, GAE, No W/R/R ABD: Soft, ND/NT, NABS 4x Q EXT: No C/C/E SKIN: Warm to touch PSYCH: No active psychosis, hallucinations, depression, SI/HI Family History: Unchanged from Admission Social History: Unchanged from Admission Past Medical History: Unchanged from Admission Objective Active Medications: Albuterol/Ipratropium (Duoneb (Albuterol 2.5 Mg/Ipratropium 0.5 Mg)) 1 neb INH [id number] AWAKE PRN PRN Reason: SOB/WHEEZING Apixaban (Eliquis*) 5 mg PO BID [facility] Last Admin: 07/31/18 09:29 Dose: 5 mg Cholecalciferol (Vitamin D Tab*) 800 unit PO DAILY [facility] Last Admin: 07/31/18 09:27 Dose: 800 unit Cyanocobalamin (Vitamin B12 Tab*) 1,000 mcg PO DAILY [facility] Last Admin: 07/31/18 09:29 Dose: 1,000 mcg Dofetilide (Tikosyn Cap*) 250 mcg PO BID [facility] Last Admin: 07/31/18 09:30 Dose: 250 mcg Famotidine (Pepcid Tab*) 20 mg PO DAILY [facility] Last Admin: 07/31/18 09:29 Dose: 20 mg Fluticasone Propionate (Flonase Nasal [place] 50mcg*) 2 spray BOTH NARES DAILY [facility] Last Admin: 07/31/18 09:30 Dose: 2 spray Guaifenesin (Mucinex*) 600 mg PO BID [facility] Last Admin: 07/31/18 09:29 Dose: 600 mg Latanoprost (Xalatan 0.005%*) 1 drop BOTH EYES BEDTIME [facility] Last Admin: 07/30/18 21:58 Dose: 1 drop Multivitamins/Minerals (Preservision Areds 2) 1 cap PO BID [facility] Last Admin: 07/31/18 09:30 Dose: 1 cap Prednisone (Deltasone Tab*) 55 mg PO 1700 [facility] Last Admin: 07/30/18 17:11 Dose: 55 mg Sodium Chloride (Sodium Chloride 0.65% Nasal [place]*) 1 spray BOTH NARES Q3H PRN PRN Reason: Dryness Last Admin: 07/27/18 07:32 Dose: 1 spray Vital Signs - 8 hr 07/31/18 07/31/18 07/31/18 08:00 09:30 11:18 Temperature 96.9 F Pulse Rate 41 Respiratory 19 18 Rate Blood Pressure 110/60 (mmHg) O2 Sat by Pulse 92 95 Oximetry 07/31/18 11:39 Temperature Pulse Rate 57 Respiratory Rate Blood Pressure (mmHg) O2 Sat by Pulse Oximetry Oxygen Devices in Use Now: Nasal Cannula Result Diagrams: 07/25/18 05:44 07/27/18 07:14 Microbiology and Other Data: Laboratory Results - last 24 hr 07/26/18 07/26/18 07/26/18 07:55 09:06 16:55 Patient Temperature Not Reportable ABG pH 7.45 ABG pH (Temp Correct) Not Reportable ABG pCO2 42 ABG pCO2 (Temp Corrct Not Reportable ABG pO2 73 L ABG pO2 (Temp Correct Not Reportable ABG HCO3 28.5 ABG O2 Saturation 95.7 ABG Base Excess 4.7 H Respiration Rate Not Reportable O2 Delivery Device n/c Ventilator Type Not Reportable Vent Mode Not Reportable FiO2 2 Inspiratory Time Not Reportable PEEP Not Reportable Pressure Support Not Reportable Pressure Control Not Reportable EPAP Not Reportable IPAP Not Reportable BiPAP Not Reportable Sodium 129 L Potassium TNP 3.5 Chloride 93 L Carbon Dioxide 32 Anion Gap 4 BUN 27 H Creatinine 0.89 Est GFR ( Amer) 99.3 Est GFR (Non-Af Amer) 82.0 BUN/Creatinine Ratio 30.3 H Glucose 91 Calcium 9.0 Magnesium 2.2 Assess/Plan/Problems-Billing Assessment: 83 year old Male with history of pulmonary fibrosis, atrial fibrillation; who is inpatient for exacerbation of pulmonary fibrosis due to pneumonia. - Patient Problems (1) Acute respiratory failure with hypoxia Current Visit: Yes Status: Acute Priority: High Code(s): J96.01 - ACUTE RESPIRATORY FAILURE WITH HYPOXIA SNOMED Code(s): 45977022 Comment: - 2/2 to pulmonary fibrosis with exacerbation caused by CAP vs fluid overload - Prednisone at 55 mg in am. Appreciate consult by Dr. Pollard - Dalilaiet discontinued as it was a newly started med before flare, know to occasionally cause worsening. - Plan is for [facility] Acute rehab in AM (2) Atrial flutter Current Visit: No Status: Acute Priority: Medium Code(s): I48.92 - UNSPECIFIED ATRIAL FLUTTER SNOMED Code(s): 8158135 Comment: - in NSR now - will continue Tikosyn at outpatient doses, only had 3/4 dose for 2 days. - no need for telemetry (3) Pneumonia Current Visit: Yes Status: Acute Code(s): J18.9 - PNEUMONIA, UNSPECIFIED ORGANISM SNOMED Code(s): 523665010 Comment: -Completed Doxycycline -Clarified with pt that he was on antibiotics but has already finished them (4) DVT prophylaxis Current Visit: No Status: Acute Priority: Low Code(s): NYD3547 - SNOMED Code(s): 412510857 Comment: - On eliquis Status and Disposition: -D/C to [facility] in AM
[2018-07-31] MEDS: predniSONE TAB* 10 MG PO SCH (17:14)
--- NOTE | 2018-07-31 20:18 | PN ---
Progress Note - Progress Note Date of Service: 07/31/18 - Pulm f/u note Note: Pt seen and examined at bedside. Pt reports improvement in breathing. Still desaturates wit exertion. Active Medications Generic Name Dose Route Start Last Admin Trade Name Freq PRN Reason Stop Dose Admin Albuterol/Ipratropium 1 neb 07/20/18 15:13 Duoneb (Albuterol 2.5 Mg/Ipratropium 0.5 Mg) INH [id number] AWAKE PRN SOB/WHEEZING Apixaban 5 mg 07/18/18 09:00 07/31/18 09:29 Eliquis* PO 5 mg BID BIN Administration Cholecalciferol 800 unit 07/18/18 08:00 07/31/18 09:27 Vitamin D Tab* PO 800 unit DAILY BIN Administration Cyanocobalamin 1,000 mcg 07/18/18 09:00 07/31/18 09:29 Vitamin B12 Tab* PO 1,000 mcg DAILY BIN Administration Dofetilide 250 mcg 07/30/18 21:00 07/31/18 09:30 Tikosyn Cap* PO 250 mcg BID BIN Administration Famotidine 20 mg 07/28/18 09:00 07/31/18 09:29 Pepcid Tab* PO 20 mg DAILY BIN Administration Fluticasone Propionate 2 spray 07/23/18 12:00 07/31/18 09:30 Flonase Nasal [place] 50mcg* BOTH NARES 2 spray DAILY BIN Administration Guaifenesin 600 mg 07/23/18 12:00 07/31/18 09:29 Mucinex* PO 600 mg BID BIN Administration Latanoprost 1 drop 07/25/18 21:00 07/30/18 21:58 Xalatan 0.005%* BOTH EYES 1 drop BEDTIME BIN Administration Multivitamins/Minerals 1 cap 07/18/18 09:00 07/31/18 09:30 Preservision Areds 2 PO 1 cap BID BIN Administration Prednisone 55 mg 07/29/18 17:00 07/31/18 17:14 Deltasone Tab* PO 55 mg 1700 BIN Administration Sodium Chloride 1 spray 07/25/18 22:06 07/27/18 07:32 Sodium Chloride 0.65% Nasal [place]* BOTH NARES 1 spray Q3H PRN Administration Dryness Vital Signs Temp Pulse Resp BP Pulse Ox 96.9 F 58 26 108/59 95 07/31/18 11:18 07/31/18 15:43 07/31/18 15:43 07/31/18 15:43 07/31/18 15:43 O/E: pt in NAD HEENT: PERRLA, no JVD Lungs: Diminished air entry, crackles at bases CVS: S1, S2+, bradycardia Abd: Soft, BS+ Ext: Normal ROM Neuro: NO focal deficits Skin: Mild rash on rt knuckles Labs: No new labs CXR 07/28 - Improvement of air space consolidation at rt base, interstitial opacities persist I/R: 83 y o m with h/o pulm fibrosis, recent A.flutter/A.fib a/w worsening SOB Acute IPF exacerbation versus PNA versus fluid overload Pt with acute hypoxic resp failure, no PE noted CT chest showed significant pulm fibrosis with drastic change from prior CT from [address] from [place] from May 2018 also showed significant fibrosis CT done at [facility] 1 day prior to hospitalization, worsening air space opacities and fibrotic changes compared to May 2018. Rpt CXR shows slight improvement O2 requirements improved since last night, able to tolerate 2-3L at rest and 4- 6L O2 with activity Less desaturations with activity Unclear if true drop in O2 or low sats recorded sec to underlying A.fib while ambualting His ABG looks better than what his sats suggest Has significant bradycardia, is asymptomatic Received high dose steroids for 3 days, changed to prednisone at 60 which was tapered to 55mg To be d/satnam on 50 mg of prednisone tomorrow and c/w slow taper of 10 mg weekly Is on Pirfenidone for IPF, d/satnam 07/25 with concern for medication side effect ? Tikosyn side effect Less likely as per cardiology Night time dose was lowered to half given bradycardia at night Plan to continue given concern with recurrence of arrythmia c/w pepcid for GI px while on steroids Recommended saline nasal spray, given nasal congestion and blew out large black , rigid plugs- ? dried blood D/w Dr Gray
[2018-07-31] MEDS: Latanoprost 0.005%* 2.5 ml BTL BOTH EYES SCH (20:51)
[2018-08-01 03:28] VITALS: BP 111/57
[2018-08-01 06:18] LABS: Hematocrit 41 % (42-52); Mean Corpuscular HGB Conc 34 g/dl (31-36); Mean Corpuscular Hemoglobin 33 pg (27-31); Mean Corpuscular Volume 97 fL (80-94); Platelet Count 358 10^3/ul (150-450); Red Blood Count 4.23 10^6/ul (4.00-5.40); Red Cell Distribution Width 13 % (10.5-15); White Blood Count 10.6 10^3/ul (3.5-10.8)
[2018-08-01 06:34] LABS: Albumin 3.1 g/dL (3.2-5.2); Albumin/Globulin Ratio 0.8 (1-3); BUN/Creatinine Ratio 22.5 (8-20); Calcium 9.1 mg/dL (8.6-10.3); EGFR African American 112.3 (>60); EGFR Non-African American 92.8 (>60); Globulin 3.8 g/dL (2-4); Magnesium 2.3 mg/dL (1.9-2.7); Phosphorus 3.7 mg/dL (2.5-5.0); Potassium 4.4 mmol/L (3.5-5.0); Total Bilirubin 0.7 mg/dL (0.2-1.0); Total Protein 6.9 g/dL (6.4-8.9)
--- NOTE | 2018-08-01 07:26 | PN ---
Progress Note - Progress Note Date of Service: 08/01/18 - Pulm f/u Note: Pt seen and examined at bedside. Pt reports feeling better. No acute events o/ n. Has not had any drainage or crusting from the nose. Active Medications Generic Name Dose Route Start Last Admin Trade Name Freq PRN Reason Stop Dose Admin Albuterol/Ipratropium 1 neb 07/20/18 15:13 Duoneb (Albuterol 2.5 Mg/Ipratropium 0.5 Mg) INH [id number] AWAKE PRN SOB/WHEEZING Apixaban 5 mg 07/18/18 09:00 07/31/18 20:51 Eliquis* PO 5 mg BID BIN Administration Cholecalciferol 800 unit 07/18/18 08:00 07/31/18 09:27 Vitamin D Tab* PO 800 unit DAILY BIN Administration Cyanocobalamin 1,000 mcg 07/18/18 09:00 07/31/18 09:29 Vitamin B12 Tab* PO 1,000 mcg DAILY BIN Administration Dofetilide 250 mcg 07/30/18 21:00 07/31/18 20:51 Tikosyn Cap* PO 250 mcg BID BIN Administration Famotidine 20 mg 07/28/18 09:00 07/31/18 09:29 Pepcid Tab* PO 20 mg DAILY BIN Administration Fluticasone Propionate 2 spray 07/23/18 12:00 07/31/18 09:30 Flonase Nasal [place] 50mcg* BOTH NARES 2 spray DAILY BIN Administration Guaifenesin 600 mg 07/23/18 12:00 07/31/18 20:51 Mucinex* PO 600 mg BID BIN Administration Latanoprost 1 drop 07/25/18 21:00 07/31/18 20:51 Xalatan 0.005%* BOTH EYES 1 drop BEDTIME BIN Administration Multivitamins/Minerals 1 cap 07/18/18 09:00 07/31/18 20:52 Preservision Areds 2 PO 1 cap BID BIN Administration Prednisone 55 mg 07/29/18 17:00 07/31/18 17:14 Deltasone Tab* PO 55 mg 1700 BIN Administration Sodium Chloride 1 spray 07/25/18 22:06 07/27/18 07:32 Sodium Chloride 0.65% Nasal [place]* BOTH NARES 1 spray Q3H PRN Administration Dryness Vital Signs Temp Pulse Resp BP Pulse Ox 98.5 F 50 20 111/57 95 08/01/18 03:16 08/01/18 03:16 08/01/18 03:16 08/01/18 03:16 08/01/18 03:16 O/E: pt in NAD, lying in bed HEENT: PERRLA, no JVD Lungs: Improved air entry, crackles at bases, improved CVS: S1, S2+, bradycardia, irregular Abd: Soft, BS+ Ext: Normal ROM Neuro: NO focal deficits Skin: No rash Labs: No new labs CXR 07/28 - Improvement of air space consolidation at rt base, interstitial opacities persist I/R: 83 y o m with h/o pulm fibrosis, recent A.flutter/A.fib a/w worsening SOB Acute IPF exacerbation versus PNA versus fluid overload Pt with acute hypoxic resp failure, no PE noted CT chest showed significant pulm fibrosis with drastic change from prior CT from [address] from [place] from May 2018 also showed significant fibrosis CT done at [facility] 1 day prior to hospitalization, worsening air space opacities and fibrotic changes compared to May 2018. Rpt CXR shows slight improvement O2 requirements - 2-3L at rest and 4-6L O2 with activity Unclear if true drop in O2 or low sats recorded sec to underlying A.fib while ambualting His ABG looks better than what his sats suggest Has significant bradycardia, is asymptomatic Is on full dose of Tikosyn Received high dose steroids for 3 days, changed to prednisone at 60 which was tapered to 55mg To be d/satnam on 50 mg of prednisone tomorrow and c/w slow taper of 10 mg weekly Is on Pirfenidone for IPF, d/satnam 07/25 with concern for medication side effect Might restart when stable ? Tikosyn side effect Less likely as per cardiology Plan to continue given concern with recurrence of arrythmia c/w pepcid for GI px while on steroids For d/c home today
[2018-08-01] MEDS: MULTIVITAMINS AREDS2 PO SCH (07:30)
[2018-08-01] MEDS: Apixaban* 5 MG TAB PO SCH (07:30)
[2018-08-01] MEDS: Cyanocobalamin TAB* 500 MCG PO SCH (07:30)
[2018-08-01] MEDS: Cholecalciferol TAB* 400 UNIT PO SCH (07:30)
[2018-08-01] MEDS: MINS PO SCH (07:30)
[2018-08-01] MEDS: Famotidine TAB* 20 MG PO SCH (07:30)
[2018-08-01] MEDS: Dofetilide CAP* 250 MCG PO SCH (07:30)
[2018-08-01] MEDS: Fluticasone NASAL SPRAY 50MCG* 16 gm SPRAY BTL BOTH NARES SCH (07:30)
[2018-08-01] MEDS: guaiFENesin ER TAB 600 MG PO SCH (07:30)
--- NOTE | 2018-08-01 09:54 | DS ---
CC: Dr. Lico Boateng; Dr. Richard Moore; Dr. Emiliana Pollard; Dr. Valentina Pritchard.* DISCHARGE SUMMARY: DATE OF ADMISSION: DATE OF DISCHARGE: 08/01/18 DISCHARGE DIAGNOSES: Are as follows: 1. Acute respiratory failure with hypoxia likely due to worsening pulmonary fibrosis possibly due to recent pneumonia. 2. History of atrial flutter. DISCHARGE MEDICATIONS: Are as follows: 1. DuoNebs 1 neb inhalation t.i.d. p.r.n. 2. Apixaban 5 mg p.o. b.i.d. 3. Cholecalciferol 800 mg p.o. daily. 4. Cyanocobalamin 1000 mcg p.o. daily. 5. Dofetilide or Tikosyn 250 mcg p.o. b.i.d. 6. Famotidine 20 mg p.o. daily. 7. Fluticasone nasal spray 2 sprays both nares daily. 8. Guaifenesin 600 mg p.o. b.i.d. 9. Latanoprost 1 drop to both eyes q.p.m. 10. Saline nasal spray 1 spray to both nares, q.3 hours p.r.n. 11. PreserVision AREDS 2 softgel 1 tab p.o. b.i.d. 12. Tylenol 500 mg p.o. b.i.d. 13. Calcium carbonate plus vitamin D3 1 to 2 tab p.o. daily. 14. Ciclopirox 80% topical solution daily. 15. Copper gluconate 1 mg p.o. daily. 16. Magnesium 50 mg p.o. daily. 17. Multivitamin tablet 1 tab p.o. daily. 18. Prednisone slow taper as prescribed starting at 50 mg per day dose and to go down by 10 mg every week, then stop. 19. Vitamin A, zinc lozenges 7.5 mg p.o. daily. HISTORY OF PRESENT ILLNESS/HOSPITAL COURSE: The patient is an 83-year-old gentleman with history of pulmonary fibrosis, who was recently started on pirfenidone in October 2017; paroxysmal atrial flutter, status post cardioversion and Tikosyn that was started on June 2018, who had been diagnosed with pulmonary fibrosis of unknown etiology 6 to 7 years ago, thought to be initially due to chlorine exposure, although this is an unproven hypothesis based on his history. The patient was admitted on 07/18/18 for shortness of breath and dyspnea on exertion. More specifically, the patient had an appointment with an EP physician at [place] in [facility] the week prior and the patient reported not feeling well around that time and had low- grade fevers per his . 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 He had an appointment with the hay rake operator on that same afternoon where once again he was observed to have significant dyspnea. A CT scan of his chest that was obtained at that time showed worsening of his pulmonary fibrosis and he had workup for a possible inflammatory diseases and connective tissue disease which were all found to be negative as he reported. He mentions that he had been following with his hay rake operator for a long time and this gradually shortened over the past few months since the time of his initial diagnoses. Given there was a significant change in comparison to his relatively stable disease since it was first diagnosed, he was initiated on Esbriet and he has been taking this since January 2018. He also has had issues with new-onset atrial fibrillation in June 2018 for which he was hospitalized and required cardioversion 3 times in a week and then was subsequently started on Tikosyn and was given an appointment to follow up with an ground crewman mission support in [facility]. He saw the aforementioned hay rake operator who then prescribed prednisone, who then allowed him to go home with no admission that were suggested. A few hours later, he woke up during his nightly rest and felt significantly short of breath at the middle of the night. EMS then arrived and found him to be saturating at 70% on room air and on arrival to the ED, his sats was around 80s and was placed on 15 L of O2. He was subsequently then evaluated by Dr. Pollard who felt that the Esbriet can be discontinued as it was started before this most recent flare occurred. Per Dr. Pollard, has been known to occasionally cause worsening of pulmonary fibroses. He was weaned off his oxygen needs, now down to 2.5 L of oxygen at rest and 6 L on ambulation. He has been set up for a pulmonary rehab at [facility] where we will defer further pulmonary reassessment. He also was treated with doxycycline and has completed this course given pneumonia could not be ruled out as a possibility for exacerbation of pulmonary fibrosis given telltale signs of pulmonary inflammation on imaging that he has had both before reaching our institution for this admission as well as subsequent repeat chest imaging. He had been advised to follow up and/or call his PCP within 3 days post his discharge. He was advised that if his symptoms resume or develop new ones or feel unwell for any reason, to call his PCP first and if his PCP cannot entertain him due to scheduling issues alone, to call [facility] if the issue is nonemergent. He was advised to follow up with Dr. Pollard and to call her office to make/confirm his followup appointments. He was advised to call my office regarding any questions, concerns, or further clarifications regarding his discharge plans and/or prescriptions and he was advised to take his medications as prescribed. TIME SPENT: The total time spent evaluating the patient, reviewing pertinent data, and appropriate documentation is 65 minutes. [id number]/CPS #: [id number] [facility]
== END 2018-08-01 08:30 | DRG 196 ==
LOC: ED 04:20 → MED 07:01 → OBSVTOIN 07-19 09:28
PROVIDERS: ADMIT Internal Medicine; ATTEND Student in an Organized Health Care Education/Training Program
DX: J84.112 Idiopathic pulmonary fibrosis (principal); J96.01 Acute respiratory failure with hypoxia; J18.9 Pneumonia, unspecified organism; I48.92 Unspecified atrial flutter; I50.42 Chronic combined systolic (congestive) and diastolic (congestive) heart failure; J47.0 Bronchiectasis with acute lower respiratory infection; I35.0 Nonrheumatic aortic (valve) stenosis; J98.4 Other disorders of lung; M54.2 Cervicalgia; M54.9 Dorsalgia, unspecified; R59.0 Localized enlarged lymph nodes; I27.20 Pulmonary hypertension, unspecified; G47.33 Obstructive sleep apnea (adult) (pediatric); M15.9 Polyosteoarthritis, unspecified; I48.91 Unspecified atrial fibrillation; R07.89 Other chest pain; E87.70 Fluid overload, unspecified; R00.1 Bradycardia, unspecified; R21 Rash and other nonspecific skin eruption; G40.909 Epilepsy, unspecified, not intractable, without status epilepticus; H40.9 Unspecified glaucoma; H35.30 Unspecified macular degeneration; Z85.828 Personal history of other malignant neoplasm of skin; Z98.42 Cataract extraction status, left eye; Z98.41 Cataract extraction status, right eye; Z96.1 Presence of intraocular lens; Z72.89 Other problems related to lifestyle; Z87.891 Personal history of nicotine dependence; Z85.46 Personal history of malignant neoplasm of prostate; Z82.49 Family history of ischemic heart disease and other diseases of the circulatory system; Z80.8 Family history of malignant neoplasm of other organs or systems; Z90.79 Acquired absence of other genital organ(s); Z81.8 Family history of other mental and behavioral disorders; Z99.81 Dependence on supplemental oxygen; Z79.01 Long term (current) use of anticoagulants
CPT/HCPCS: 36415; 36600; 71045; 71275; 80048; 80053; 81003; 82272; 82803; 83605; 83735; 83880; 84100; 84145; 84484; 85025; 85027; 85610; 85730; 86140; 87040; 87205; 87899; 93005; 93308; 99284; A9270-GY; G8978-GP-CI; G8979-GP-CI; G8980-GP-CI; J0696; J1940; J2920; J2930; J3475; J7512; Q9967